=== PATIENT | female | born 1965 | race Two or more races ===

== ENCOUNTER → 2020-09-29 12:12 | Outpatient (BNVA) | payer OTHER, SELFPAY | PROVIDERS: PCP Internal Medicine; Referring Provider Internal Medicine; Visit Provider Nurse Practitioner Family | DX: Z76.89 Persons encountering health services in other specified circumstances (principal) ==

== ENCOUNTER 2020-10-28 08:13 | Outpatient (REF) | payer OTHER, SELFPAY ==
[2020-10-28 10:47] LABS: Hematocrit 42.8 % (37-47); Hemoglobin 13.7 g/dl (12.0-16.0); Mean Corpuscular Volume 87.3 fL (80-98); Mean Platelet Volume 10.7 fL (9.4-12.3); Platelet Count 286 X10*3/uL (160-400); Red Cell Distribution Width 12.9 % (11.0-16.0); White Blood Count 5.8 X10*3/uL (4.8-10.8)
== END 2020-10-28 08:14 | disposition home or self-care (01) ==
LOC: HO.LAB 08:13
PROVIDERS: PCP Internal Medicine; Visit Provider Nurse Practitioner Family
DX: K21.9 Gastro-esophageal reflux disease without esophagitis (principal)
CPT/HCPCS: 36415; 85027

== ENCOUNTER → 2020-11-25 13:53 | Outpatient (BNVA) | payer OTHER, SELFPAY | PROVIDERS: PCP Internal Medicine; Visit Provider Nurse Practitioner Family | DX: Z76.89 Persons encountering health services in other specified circumstances (principal) ==

== ENCOUNTER → 2020-12-02 12:24 | Outpatient (BNVA) | payer OTHER, SELFPAY | PROVIDERS: PCP Internal Medicine; Visit Provider Internal Medicine | DX: I25.10 Atherosclerotic heart disease of native coronary artery without angina pectoris (principal); E11.8 Type 2 diabetes mellitus with unspecified complications; I10 Essential (primary) hypertension; E78.5 Hyperlipidemia, unspecified | CPT/HCPCS: 93005 ==

== ENCOUNTER → 2021-01-04 08:02 | Outpatient (REF) | payer OTHER, SELFPAY ==
--- NOTE | ~2021-01-04 | NM_ITS ---
Lexiscan Myocardial perfusion study Indication: Chest pain, multiple risk factors, assess for coronary disease and ischemia Technique: The patient was brought in for a Lexiscan perfusion study on 01/04/2021 and was injected 0.4 mg of Lexiscan intravenously. Within a minute of this injection 30 mCi of sestamibi was given intravenously. Images were obtained using the SPECT gamma camera interlaced with the gating device. Images were obtained in supine position. Resting perfusion study was performed on 01/06/2021. Patient was administered 30 mCi of sestamibi intravenously at rest. Images were then obtained in supine position. Total DLP 113mGy-cm. Images were processed with the software and compared side to side in short axis, horizontal long axis and vertical long axis views. Findings: Raw acquisition was reviewed. The stress perfusion study showed diminished tracer uptake along the distal part of anterior/anterolateral wall. With CT attenuation correction the anterior perfusion defect is more prominent while the anterolateral defect is less obvious. Gated study shows normal LV systolic function with calculated LVEF of 62%. LV cavity is normal in size. The gated study shows normal wall thickening and contraction of segments. Resting study shows no significant perfusion abnormality. Gating at rest reveals normal wall motion with ejection fraction at 52%. The findings are consistent with reversible perfusion defect along the distal part of anterior/anterolateral wall.. NM/NM mesha perf SPECT rest & str Impression: 1. Myocardial perfusion imaging study shows [id number] ischemia along the distal anterior/anterolateral wall. 2. Gated LVEF is 62% during stress and 52% during rest. 3. Transient ischemic dilatation not present. EKG component of the test reported separately.
--- NOTE | 2021-01-04 08:07 | CA_ITS ---
Acquisition Time: 2021-01-04 09:52:24 Total Exercise Time: 00:02:00 Test Indications: ANGINA PECTORIS, ASHD Medications: Protocol: LEXISCAN Max HR: 144 BPM 87% of Pred: 165 BPM Max BP: 128/078 mmHG Max Work Load: 1.6 METS Pharmacological stress test using Lexiscan while walking on treadmill for 2 min. Pt tolerated well. Denies any anginal sx. EKG without any arrhythmias. Non diagnostic for ischemia. Nuclear images to follow. Normotensive response to tst. Test reviewed with DR. Graves Referred By: Mitchell Graves Overread By: Gloria Rushing
--- NOTE | 2021-01-04 08:07 | CA_ITS ---
Transthoracic Echocardiogram Patient (Last, First, Middle): Brynn Ardon E Gender: Female Date of : 1965 Age: 55 Procedure Date: 01/04/2021 Procedure Type: Transthoracic Echocardiogram Location: OP Height: 157.48 cm Weight: 104.33 kg BSA: 2.03 m2 Heart Rate: bpm BP: 136 / 80 mmHg Customer Service Correspondence Clerk: ELAINE Stacy MD: Mitchell Graves MD Automotive Metalsmith: Matthew Kumar MD Symptoms: I25.10 - Atherosclerotic heart disease of [place] coronary artery without angina pectoris Study Quality: Fair/Contrast ECG Rhythm: Sinus Conclusions: - 1. Normal LV systolic function with grade 1 diastolic dysfunction 2. Normal cardiac valvular Doppler 3. Normal RV systolic pressure 4. No gross pericardial effusion Findings Procedure Information The patient receives contrast. Left Ventricle Normal left ventricular size, thickness, and systolic function. The visually estimated ejection fraction is between 60-65%. Spectral Doppler is indicative of an impaired relaxation filling pattern. E/E prime ratio is <8, consistent with normal filling pressures. Evidence suggests grade I (mild) diastolic dysfunction. Right Ventricle Normal right ventricular cavity size and systolic function. Atria Both atria are normal in size. There is no evidence of interatrial shunt. Aortic Valve There is mild calcification of the aortic valve. There is no aortic valve stenosis. There is no aortic valve regurgitation. Mitral Valve Likely normal mitral valve structure and function. There is mild mitral annular calcification. There is trace mitral valve regurgitation. There is no mitral valve stenosis. Pulmonic Valve The pulmonic valve is likely normal. There is no pulmonic valve regurgitation. Tricuspid Valve The tricuspid valve was not well visualized. Great Vessels The aorta was not well visualized. The pulmonary artery was not well visualized. Venous The inferior vena cava is normal in size and collapses greater than 50% with inspiration. Pericardium/Pleural There is no evidence of pericardial effusion. Prior Study Comparison No significant change compared to prior study dated: 01/23/2019. Measurements 2D Linear Measurements IVSd: 1.07 0.6-0.9/0.6-1.0 cm LVIDd: 4.56 3.9-5.3/4.2-5.9 cm LVIDd Index: 2.25 2.4-3.2/2.2-3.1 cm/m2 LVIDs: 2.92 2.0-3.6 cm LVPWd: 1.04 0.7-1.1 cm Ao Root: 3.10 2.1-3.5 cm LA Diam: 3.40 2.7-3.8/3.0-4.0 cm LAIDs Index: 1.67 1.5-2.3 cm/m2 LV Mass: 210.00 67-162/88-224 g LV Mass Index: 103.45 43-95/49-115 g/m2 LVOT Diam: 2.00 3.0+(-)1.3 cm 2D Systolic Function EF 4C: 60.00 >55% EF 2C: 59.40 >55% EF BiP: 58.80 >55% Mitral Valve MV Pk E: 0.48 MV PK A: 0.86 MV Decel Time: 248.00 E/A: 0.60 E'Lateral: 6.74 E'Medial: 5.11 E/E' Med: 9.50 E/E' Lat: 7.20 PHT: 73.00 MVA PHT: 3.01 Decel Davison: 1.95 Aortic Valve AoV Pk Gustavo: 1.31 AoV Mn Gustavo: 0.91 AoV VTI: 0.25 AoV Pk Grad: 7.00 Aov Mn Grad: 4.00 FARZAD Cont.VTI: 1.98 LVOT LVOT Pk Gustavo: 0.72 LVOT Mn Gustavo: 0.48 LVOT VTI: 0.16 LVOT Pk Grad: 2.00 LVOT Mn Grad: 1.00 LVOT Diam: 2.00 LVOT Area: 3.14 Diastolic Function MV Pk E: 0.48 MV Pk A: 0.86 E/A: 0.60 E'Medial: 5.11 E/E' Med: 9.50 E' Laterial: 6.74 E/E' Lat: 7.20 Tricuspid Valve RA Press: 3.00 Great Vessels Aorta Ao Root-2D: 3.10 2.0-3.7 cm Ao Asc: 2.60 2.1-3.4 cm Ao Arch: 2.40 Updated in Other Vendor System with Status of Final Matthew Kumar MD electronically signed on 01/04/2021 4:22:52 PM with status of Final
== END ==
LOC: HO.CARD 08:02
PROVIDERS: PCP Internal Medicine; Visit Provider Internal Medicine
DX: I25.119 Atherosclerotic heart disease of native coronary artery with unspecified angina pectoris (principal)
CPT/HCPCS: 78452; 93017; 93306; A9500; J0280; J2785; Q9957

== ENCOUNTER → 2021-01-06 08:35 | Outpatient (BNVA) | payer OTHER, SELFPAY | PROVIDERS: PCP Internal Medicine; Visit Provider Internal Medicine ==

== ENCOUNTER 2021-01-07 09:36 | Outpatient (REF) | payer OTHER, SELFPAY ==
[2021-01-07 10:36] LABS: Hematocrit 39.7 % (37-47); Hemoglobin 13.1 g/dl (12.0-16.0); Mean Corpuscular Hemoglobin 28.8 pg (27.0-33.0); Mean Corpuscular Volume 87.3 fL (80-98); Mean Platelet Volume 10.1 fL (9.4-12.3); Platelet Count 299 X10*3/uL (160-400); Red Blood Count 4.55 X10*6/uL (4.20-5.50); Red Cell Distribution Width 12.7 % (11.0-16.0); White Blood Count 7.8 X10*3/uL (4.8-10.8)
[2021-01-07 10:42] LABS: INTERNATIONAL NORM RATIO 1.1 (0.9-1.1); Prothrombin Time 12.7 SEC (10.8-13.0)
[2021-01-07 11:07] LABS: Anion Gap 13 (12-20); Blood Urea Nitrogen 17 mg/dL (9-16); Calcium 9.4 mg/dL (8.4-10.2); Carbon Dioxide 30 mmol/L (22-29); Chloride 106 mmol/L (96-108); Estimated Glomerular Filt Rate > 60; Glucose Random 138 mg/dL (60-115); Potassium 4.5 mmol/L (3.3-5.1); Sodium 144 mmol/L (135-145)
== END 2021-01-07 09:37 | disposition home or self-care (01) ==
LOC: HO.LAB 09:36
PROVIDERS: PCP Internal Medicine; Visit Provider Internal Medicine
DX: I25.10 Atherosclerotic heart disease of native coronary artery without angina pectoris (principal); Z79.01 Long term (current) use of anticoagulants
CPT/HCPCS: 36415; 80048; 85027; 85610

== ENCOUNTER → 2021-01-20 08:02 | Outpatient (BNVA) | payer OTHER, SELFPAY | PROVIDERS: PCP Internal Medicine; Visit Provider Internal Medicine ==

== ENCOUNTER → 2021-02-18 14:24 | Outpatient (BNVA) | payer OTHER, SELFPAY | PROVIDERS: PCP Internal Medicine; Visit Provider Internal Medicine ==

== ENCOUNTER 2021-03-04 09:50 | Outpatient (REF) | payer OTHER, SELFPAY ==
--- NOTE | ~2021-03-04 | XR_ITS ---
EXAMINATION: XR chest 2V CLINICAL INFORMATION: Reason for Exam E66.9 - Obesity, unspecified COMPARISON: 07/04/2019 TECHNIQUE: XR chest 2V Lungs and Cornleia: Both lungs are clear. Pleura: Normal. Costophrenic angles are sharp. No pneumothorax. Heart: The heart is normal in size. Mediastinum: The mediastinum is within normal limits.. Bones: Skeletal structures included are normal for patient's age. XR/XR chest 2V IMPRESSION: No radiographic evidence of acute cardiopulmonary disease.
== END 2021-03-04 09:51 | disposition home or self-care (01) ==
LOC: HO.XRAY 09:50
PROVIDERS: PCP Internal Medicine; Visit Provider Internal Medicine
DX: E66.9 Obesity, unspecified (principal); R06.00 Dyspnea, unspecified
CPT/HCPCS: 71046

== ENCOUNTER → 2021-07-08 07:48 | Outpatient (BNVA) | payer OTHER, SELFPAY | PROVIDERS: PCP Internal Medicine; Visit Provider Nurse Practitioner Gerontology | DX: E11.42 Type 2 diabetes mellitus with diabetic polyneuropathy (principal); E78.5 Hyperlipidemia, unspecified; E66.01 Morbid (severe) obesity due to excess calories; I10 Essential (primary) hypertension; Z68.41 Body mass index [BMI] 40.0-44.9, adult | CPT/HCPCS: 82947 ==

== ENCOUNTER → 2021-07-27 08:11 | Outpatient (BNVA) | payer OTHER, SELFPAY | PROVIDERS: PCP Internal Medicine; Visit Provider Internal Medicine ==

== ENCOUNTER → 2021-11-16 08:28 | Outpatient (BNVA) | payer OTHER, SELFPAY | PROVIDERS: PCP Internal Medicine; Visit Provider Nurse Practitioner Gerontology ==

== ENCOUNTER 2022-03-04 09:38 | Outpatient (REF) | payer OTHER, SELFPAY ==
--- NOTE | ~2022-03-04 | XR_ITS ---
EXAMINATION: XR LUMBOSACRAL SPINE CLINICAL INFORMATION: Low back pain. COMPARISON: None TECHNIQUE: Three views of the lumbosacral spine. FINDINGS: There is normal lumbar lordosis. The vertebral heights and alignment are normal. There is loss of the L1-L2 and L2-L3 disc heights with moderate ventral spondylosis. There is no visible acute fracture, dislocation or lytic process seen. The paravertebral soft tissues are normal. XR/XR lumbar spine 2-3V IMPRESSION: Mild degenerative disc changes of the L1-L2 and L2-L3 disc levels with moderate ventral spondylosis. No visible acute fracture or lytic process seen.
== END 2022-03-04 09:39 | disposition home or self-care (01) ==
LOC: HO.XRAY 09:38
PROVIDERS: PCP Internal Medicine; Visit Provider Internal Medicine
DX: M54.50 Low back pain, unspecified (principal)
CPT/HCPCS: 72100

== ENCOUNTER 2022-04-04 12:26 | Outpatient (REF) | payer OTHER, SELFPAY ==
--- NOTE | ~2022-04-04 | XR_ITS ---
EXAMINATION: XR RIBS, LEFT CLINICAL INFORMATION: Left lower chest wall pain COMPARISON: Previous chest x-ray February 2021 TECHNIQUE: 3 views of the left ribs and one view of the chest were obtained. FINDINGS: Lungs are clear. No consolidation, pneumothorax, or pleural effusion. The cardiomediastinal silhouette and pulmonary vasculature are normal. There are degenerative changes of the spine.. Ribs are intact. No fractures are identified. XR/XR ribs LT min 3V w CXR1V IMPRESSION: No evidence for acute disease in the chest. No rib fracture. Degenerative changes of the spine.
== END 2022-04-04 12:27 | disposition home or self-care (01) ==
LOC: HO.XRAY 12:26
PROVIDERS: PCP Internal Medicine; Visit Provider Internal Medicine
DX: R07.89 Other chest pain (principal)
CPT/HCPCS: 71101

== ENCOUNTER → 2022-07-28 08:07 | Outpatient (BNVA) | payer OTHER, SELFPAY | PROVIDERS: PCP Internal Medicine; Referring Provider Internal Medicine; Visit Provider Internal Medicine | DX: I25.10 Atherosclerotic heart disease of native coronary artery without angina pectoris (principal); I10 Essential (primary) hypertension; E78.5 Hyperlipidemia, unspecified; E11.8 Type 2 diabetes mellitus with unspecified complications; E66.01 Morbid (severe) obesity due to excess calories; Z68.41 Body mass index [BMI] 40.0-44.9, adult | CPT/HCPCS: 93005 ==

== ENCOUNTER 2022-10-11 10:24 | Outpatient (REF) | payer OTHER, SELFPAY ==
--- NOTE | ~2022-10-11 | XR_ITS ---
EXAMINATION: XR HAND, RIGHT CLINICAL INFORMATION: Pain COMPARISON: None TECHNIQUE: PA, lateral, and oblique views of the right hand. FINDINGS: The bones are osteopenic. Bone alignment is normal. No fracture or dislocation. 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 Joint spaces are otherwise normal. Soft tissues are normal. XR/XR hand RT min 3V IMPRESSION: Osteopenia and mild arthritis at the first CORRECTION joint.
== END 2022-10-11 10:25 | disposition home or self-care (01) ==
LOC: HO.HOSX 10:24
PROVIDERS: Visit Provider Orthopaedic Surgery
DX: Z13.89 Encounter for screening for other disorder (principal)

== ENCOUNTER → 2022-10-13 10:03 | Outpatient (BNVA) | payer OTHER, SELFPAY | PROVIDERS: PCP Internal Medicine; Visit Provider Orthopaedic Surgery | DX: M65.4 Radial styloid tenosynovitis [de Quervain] (principal); M79.641 Pain in right hand; R20.0 Anesthesia of skin; R20.2 Paresthesia of skin | CPT/HCPCS: 20550; 73130; J1100 ==

== ENCOUNTER 2022-12-08 14:08 | Outpatient (REF) | payer OTHER, SELFPAY ==
--- NOTE | 2022-12-08 08:00 | EMG_ITS ---
Bilateral median and ulnar motor and sensory studies were performed. Bilateral radial sensory studies were performed and paraspinal muscles were tested with a needle. 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 MD HENRRY Morrow/SANDI / [id number]
== END 2022-12-08 14:09 | disposition home or self-care (01) ==
LOC: HO.NEURO 14:08
PROVIDERS: PCP Internal Medicine; Visit Provider Orthopaedic Surgery
DX: R20.0 Anesthesia of skin (principal)
CPT/HCPCS: 95886; 95911

== ENCOUNTER → 2022-12-26 08:47 | Outpatient (BNVA) | payer OTHER, SELFPAY | PROVIDERS: Visit Provider Orthopaedic Surgery | DX: Z13.89 Encounter for screening for other disorder (principal) ==

== ENCOUNTER 2023-01-06 08:29 | Day surgery (SDC) | payer OTHER, SELFPAY ==
[2023-01-06 07:09] VITALS: BMI 41.3
[2023-01-06 09:45] VITALS: BP 150/73; PULSE 69; RESP 20; TEMP 36.8; O2SAT 98
--- NOTE | 2023-01-06 10:12 | P.OP_ITS ---
Operative Note Operative Note Date of Service: 01/06/23 Narrative: Operative Note Preop diagnosis: 1. Right DeQuervain's tenosynovitis 2. right carpal tunnel syndrome Postop diagnosis: same Procedure: 1. right 1st dorsal compartment release 2. Right 1st dorsal compartment tenosynovectomy 3. Right carpal tunnel release Surgeon: Lee Ann Gilliam MD Anesthesia: local block using 1% lidocaine with epinephrine Findings: Thickened 1st dorsal compartment. Hypertrophic tenosynovium about the APL tendon in the 1st dorsal compartment. thickened transverse carpal ligament EBL: Less than 5 mL Tourniquet time: None Specimens: None Complications: None Disposition: Brought to recovery room in stable condition Plan: Follow-up for 7-10 days for wound check and suture removal Indications: The patient is 57 years old, with right DeQuervain's te nosynovitis and right carpal tunnel syndrome that have been unresponsive to nonoperative management. The risks and benefits of operative treatment including but not limited to risk of damage to blood vessels, nerves, tendons, infection, persistent pain, persistent symptoms, recurrence or possible need for additional surgery were discussed with the patient and the patient wishes to proceed with surgery. Procedure: Once consent was obtained a local block was performed in the preop area using a combination of 1% lidocaine with epinephrine. The patient was then brought back to the operating suite and placed on the operative table in supine position. A tourniquet was applied to the proximal aspect of the right upper extremity and the limb was prepped and draped in a standard surgical fashion. Once assured that we had a good block, a 2.0 cm longitudinal incision was made centered over the right carpal tunnel. The incision was made through the skin to the subcutaneous tissues using a #15 blade. Dissection was made down to the level of the transverse carpal ligament with care being taken to protect the palmar cutaneous nerve. Once the transverse carpal ligament was clearly visualized, a longitudinal incision was made in the transverse carpal ligament 1st using a #15 blade, then using tenotomy scissors under direct visualization. Care was taken to look for and protect the motor branch of the median nerve when seen in this area. Once satisfied with our carpal tunnel release the wound was irrigated with normal saline. Once assured that we had a good block, a 1.5 cm longitudinal incision was made centered over the 1st dorsal compartment as it passed over the radial styloid of the right wrist. The incision was made through the skin to the subcutaneous tissues using a #15 blade. Careful dissection was made down to the level of the 1st dorsal compartment using tenotomy scissors, with care being taken to protect the nearby branches of the superficial radial nerve. Once the 1st dorsal compartment was exposed, A longitudinal incision was made in the 1st dorsal compartment 1st using a #15 blade, then using tenotomy scissors under direct visualization. The 1st dorsal compartment was noted to be thickened. she was noted to have some hypertrophic tenosynovium in the 1st dorsal compartment about the abductor pollicis longus tendon. I performed a tenosynovectomy excising this hypertrophic tenosynovium using tenotomy scissors. The tendons otherwise appear to be in good condition and Both the APL and EPB tendons were in the same compartment. Following our release and tenosynovectomy, we saw smooth gliding abductor pollicis longus and extensor pollicis brevis tendons. Once satisfied with our 1st dorsal compartment release the wound was copiously irrigated with normal saline and hemostasis was obtained with a brief period of local pressure. The subcutaneous layer was closed with some 4-0 Vicryl suture, and the skin edges were reapproximated with some 5.0 nylon suture material. A sterile dressing was applied. The patient appears to have tolerated the procedure well and with no complications. All digits were well vascularized at the conclusion of the case.
--- NOTE | 2023-01-06 10:12 | MHC.SHP ---
Pre-Procedural Eval Section A Date of Service: 01/06/23 The patient is an INPATIENT: No Changes since office visit: No Cold of Flu in the past 2 weeks, No New Medical Problems, No Changes in Medication and No Patient answered all questions The History & Physical has been completed within 30 days and I have reviewed it.: Yes Section B Chief Complaint: Carpal tunnel syndrome, Radial styloid tenosynovit Allergies: Allergies Allergy/AdvReac Type Severity Reaction Status Date / Time erythromycin base Allergy Severe ANAPHYLAXIS Verified 12/26/22 09:01 [Erythromycin Base] oxycodone [From Percocet] Allergy Mild Nausea Verified 12/26/22 09:01 fluconazole [Diflucan] Allergy Unknown Abdominal Verified 12/26/22 09:01 Pain silver AdvReac Unknown rash/blisters Verified 12/26/22 09:01 [From Tegaderm AG Mesh] to skin Plan I have reviewed the history and physical and performed a pertinent physical examination on my patient. No changes have occurred unless specified. Time Spent With Patient Time: Total time managing care of this patient today ____ minutes.
[2023-01-06 11:29] VITALS: BP 145/73; PULSE 71; RESP 16; TEMP 36.2; O2SAT 97
== END 2023-01-06 11:38 | disposition home or self-care (01) ==
PROVIDERS: PCP Internal Medicine; Visit Provider Orthopaedic Surgery
PROC: (CPT 64721; principal; 2023-01-06 10:50)
PROC: (CPT 25000; 2023-01-06 10:50)
DX: G56.01 Carpal tunnel syndrome, right upper limb (principal); M65.4 Radial styloid tenosynovitis [de Quervain]; R20.0 Anesthesia of skin; R20.2 Paresthesia of skin; I25.10 Atherosclerotic heart disease of native coronary artery without angina pectoris; I10 Essential (primary) hypertension; E11.42 Type 2 diabetes mellitus with diabetic polyneuropathy; E66.09 Other obesity due to excess calories; Z68.41 Body mass index [BMI] 40.0-44.9, adult; Z88.8 Allergy status to other drugs, medicaments and biological substances; Z88.1 Allergy status to other antibiotic agents
CPT/HCPCS: 64721; 25000; J0171

== ENCOUNTER → 2023-01-18 10:22 | Outpatient (BNVA) | payer OTHER, SELFPAY | PROVIDERS: PCP Internal Medicine; Visit Provider Orthopaedic Surgery | DX: Z13.89 Encounter for screening for other disorder (principal) ==

== ENCOUNTER → 2023-02-15 12:07 | Outpatient (BNVA) | payer OTHER, SELFPAY | PROVIDERS: PCP Internal Medicine; Visit Provider Orthopaedic Surgery | DX: Z13.89 Encounter for screening for other disorder (principal) ==

== ENCOUNTER 2023-03-20 10:14 | Day surgery (SDC) | payer OTHER, SELFPAY ==
--- NOTE | 2023-03-20 09:17 | W.PM.OPN ---
Operative Note Operative Note Date of Service: 03/20/23 Narrative: Preop diagnosis: 1. Left Carpal tunnel syndrome Postop diagnosis: same Procedure: 1. Left Carpal tunnel release Surgeon: Lee Ann Gilliam MD Anesthesia: local block using 1% lidocaine with epinephrine Findings: Thickened transverse carpal ligament. EBL: Less than 5 mL Specimens: None Complications: None Disposition: Brought to recovery room in stable condition Plan: Follow-up for 10-14 days for wound check and suture removal Indications: The patient is 57 years old, with left carpal tunnel syndrome that has been unresponsive to nonoperative management. The risks and benefits of operative treatment including but not limited to risk of damage to blood vessels, nerves, tendons, infection, persistent pain, persistent symptoms, or possible need for additional surgery were discussed with the patient and the patient wishes to proceed with surgery. Procedure: Once consent was obtained a local block was performed using a combination of 1% lidocaine with epinephrine. The patient was then brought back to the operating suite and placed on the operative table in supine position. The left upper extremity was prepped and draped in a standard surgical fashion. Once assured that we had a good block, a 2.0 cm longitudinal incision was made centered over the carpal tunnel. The incision was made through the skin to the subcutaneous tissues using a #15 blade. Dissection was made down to the level of the transverse carpal ligament with care being taken to protect the palmar cutaneous nerve. Once the transverse carpal ligament was clearly visualized, a longitudinal incision was made in the transverse carpal ligament 1st using a #15 blade, then using tenotomy scissors under direct visualization. Care was taken to look for and protect the motor branch of the median nerve when seen in this area. Once satisfied with our carpal tunnel release the wound was copiously irrigated with normal saline and hemostasis was obtained with a brief period of local pressure. The skin edges were reapproximated with some 5.0 nylon suture material and a sterile dressing was applied. The patient appears to have tolerated the procedure well and with no complications. All digits were well vascularized at the conclusion of the case.
[2023-03-20 10:36] VITALS: BP 128/65; PULSE 90; RESP 16; TEMP 36.2; O2SAT 96
[2023-03-20 10:38] VITALS: BMI 40.4
[2023-03-20 12:07] VITALS: BP 137/73; PULSE 75; RESP 17; O2SAT 98
--- NOTE | 2023-03-20 13:44 | MHC.SHP ---
Pre-Procedural Eval Section A Date of Service: 03/20/23 The patient is an INPATIENT: No Changes since office visit: No Cold of Flu in the past 2 weeks, No New Medical Problems, No Changes in Medication and No Patient answered all questions The History & Physical has been completed within 30 days and I have reviewed it.: Yes Section B Chief Complaint: Carpal tunnel syndrome, left upper limb Allergies: Allergies Allergy/AdvReac Type Severity Reaction Status Date / Time erythromycin base Allergy Severe ANAPHYLAXIS Verified 02/15/23 12:36 [Erythromycin Base] oxycodone [From Percocet] Allergy Mild Nausea Verified 02/15/23 12:36 fluconazole [Diflucan] Allergy Unknown Abdominal Verified 02/15/23 12:36 Pain silver AdvReac Unknown rash/blisters Verified 02/15/23 12:36 [From Tegaderm AG Mesh] to skin Plan I have reviewed the history and physical and performed a pertinent physical examination on my patient. No changes have occurred unless specified. Time Spent With Patient Time: Total time managing care of this patient today ____ minutes.
== END 2023-03-20 12:24 | disposition home or self-care (01) ==
PROVIDERS: PCP Internal Medicine; Visit Provider Orthopaedic Surgery
PROC: (CPT 64721; principal; 2023-03-20 12:20)
DX: G56.02 Carpal tunnel syndrome, left upper limb (principal); I25.10 Atherosclerotic heart disease of native coronary artery without angina pectoris; E11.42 Type 2 diabetes mellitus with diabetic polyneuropathy; I10 Essential (primary) hypertension; E78.00 Pure hypercholesterolemia, unspecified; Z86.73 Personal history of transient ischemic attack (TIA), and cerebral infarction without residual deficits; Z88.1 Allergy status to other antibiotic agents; Z88.8 Allergy status to other drugs, medicaments and biological substances; F12.90 Cannabis use, unspecified, uncomplicated
CPT/HCPCS: 64721; J0171

== ENCOUNTER 2023-03-28 10:07 | Outpatient (REF) | payer OTHER, SELFPAY ==
--- NOTE | ~2023-03-28 | XR_ITS ---
EXAMINATION: XR LUMBOSACRAL SPINE CLINICAL INFORMATION: Chronic low back pain COMPARISON: None available. TECHNIQUE: Three views of the lumbosacral spine. FINDINGS: There is normal lumbar lordosis. The vertebral heights, alignment and disc heights are normal. No visible acute fracture, dislocation or subluxation seen. No bony erosive changes there is mild spondylosis lumbar spine. The paravertebral soft tissues are normal. XR/XR lumbar spine 2-3V IMPRESSION: Mild spondylosis. No visible acute fracture, dislocation or subluxation seen.
== END 2023-03-28 10:08 | disposition home or self-care (01) ==
LOC: HO.XRAY 10:07
PROVIDERS: PCP Internal Medicine; Visit Provider Internal Medicine
DX: M54.42 Lumbago with sciatica, left side (principal); M54.41 Lumbago with sciatica, right side
CPT/HCPCS: 72100

== ENCOUNTER → 2023-04-04 09:13 | Outpatient (BNVA) | payer OTHER, SELFPAY | PROVIDERS: PCP Internal Medicine; Visit Provider Orthopaedic Surgery ==

== ENCOUNTER 2023-08-01 08:42 | Outpatient (AMB) | payer OTHER, SELFPAY ==
[2023-08-01 08:50] VITALS: BP 132/90; PULSE 66; BMI 40.0
--- NOTE | 2023-08-01 08:50 | MHC.OFFVIS ---
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 Allergies erythromycin base [Erythromycin Base] Allergy (Severe, Verified 08/01/23 08:54) ANAPHYLAXIS oxycodone [From Percocet] Allergy (Mild, Verified 08/01/23 08:54) Nausea fluconazole [Diflucan] Allergy (Unknown, Verified 08/01/23 08:54) Abdominal Pain silver [From Tegaderm AG Mesh] Adverse Reaction (Unknown, Verified 08/01/23 08:54) rash/blisters to skin Medication List - Last Reconciled 08/01/23 by GERSON Brennan aspirin 81 mg PO DAILY blood sugar diagnostic (FreeStyle Lite Strips) As directed once a day duloxetine (Cymbalta) 20 mg PO BID famotidine (Pepcid) 20 mg PO BEDTIME gabapentin 600 mg PO BEDTIME insulin glargine (Lantus Solostar U-100 Insulin) 40 units (0.4 mL) subcut QPM lancets (TRUEplus Lancets) As directed liraglutide (Victoza 3-Jose) 1.8 mg (0.3 mL) subcut DAILY lisinopril 5 mg PO DAILY loratadine (Allergy Relief (loratadine)) 10 mg PO DAILY metoprolol succinate ER 25 mg PO DAILY omeprazole 20 mg PO DAILY rosuvastatin 40 mg PO DAILY simethicone (Gas Relief (simethicone)) 125 mg PO QID PRN sucralfate 1 g PO DAILY tramadol 50 mg PO BID PRN tramadol 50 mg PO DAILY HPI 1 year follow up HPI Details Brynn is a 57-year-old female with past medical history of hypertension, hyperlipidemia, diabetes, morbid obesity, nonobstructive coronary artery disease who presents for follow-up. Today she reports she has been doing well over the last year. Her last prior visit was 07/28/2022. She does report aching in her left chest and shoulder region at times when she has at rest in the evenings. She denies any anterior chest discomfort brought on by physical activity. She has had issues with her shoulders in the past. No shortness of breath, palpitations, dizziness, presyncope, syncope, PND, orthopnea or edema. Taking meds as directed. [facility] Medical History Obesity due to excess calories Hyperlipidemia LDL goal <70 Type 2 diabetes mellitus with diabetic polyneuropathy Obesity Dyspnea on exertion Other and unspecified hyperlipidemia Essential hypertension Type 2 diabetes mellitus with unspecified complications Atherosclerotic cardiovascular disease Hypercholesteremia Diabetes mellitus TIA (transient ischemic attack) Gastroesophageal reflux disease Surgical History H/O cardiac catheterization Hx of tubal ligation Hx of cholecystectomy Family History Father Hx of diabetes insipidus Hx of cardiac asthma Mother Hx of cervical cancer Hx of heat stroke Social History Alcohol intake: never Patient Tobacco Use Status: Never used Tobacco Substance Use Type: Marijuana Current occupational status: employed 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 Review of Systems Const All systems reviewed & are unremarkable except as noted in HPI and below ENT Denies dizziness Card Details: left shoulder area ache in evenings at times Denies chest pain, Denies chest pain at rest, Denies chest pain with activity, Denies rapid heart rate, Denies pedal edema, Denies edema, Denies leg edema, Denies lightheadedness, Denies palpitations, Denies dyspnea, Denies dyspnea on exertion and Denies orthopnea Resp Denies cough, Denies dyspnea and Denies dyspnea on exertion GI Denies hematochezia and Denies change in stool character Musc Denies abnormal gait, Denies limited range of motion, Denies muscle cramps, Denies muscle weakness, Denies numbness, Denies radiating pain into limb, Denies stiffness and Denies tingling Neuro Denies abnormal gait, Denies dizziness, Denies numbness and Denies tingling Endo Denies palpitations Physical Exam Vital Signs: Last Vital Signs Pulse 66 08/01/23 08:50 BP 132/90 H 08/01/23 08:50 BMI result Body Mass Index 40.0 Const General: cooperative, healthy appearing, comfortable and no acute distress Orientation/consciousness: patient oriented x3 Neck Neck: Yes normal visual inspection and Yes no JVD Resp Effort & Inspection: normal respiratory effort Auscultation: clear to auscultation bilaterally, no crackles, no rales, no rhonchi and no wheezes Cardio Jugular venous distension: no JVD Rate: regular rate Rhythm: regular rhythm Heart sounds: S1 normal heart sound present, S2 normal heart sound present, no gallops, no murmurs and no rubs Skin General skin exam: no rashes or lesions noted Neuro General: patient oriented x3 Extrem General: Yes normal to inspection, No no pedal edema and No calf tenderness Psych Appearance: grossly normal Mental Status: mental status grossly normal Speech and movement: Normal speech and movement present Office Procedures EKG Details: Today, read by me Sinus rhythm, low-voltage QRS, can not rule out anterior infarct, old, rate 66, QTC 406 millisecond [id number], Complete Assessment & Plan Assessment & Plan (1) Atherosclerotic cardiovascular disease: Code(s): I25.10 - Atherosclerotic heart disease of [place] coronary artery without angina pectoris Plan: History of CAD, nonobstructive. Nuclear stress test done 01/04/2021 showed [id number] ischemia in the distal anterior and anterior lateral wall. An echocardiogram done that day showed EF 60-65%, grade 1 diastolic dysfunction. She underwent cardiac catheterization on 01/15/2021 showing mid LAD 30% stenosis, RCA mild disease. EKG done today shows sinus rhythm, can not rule out prior anterior infarct which is unchanged from prior EKG, rate 66. She has been on medication for stable CAD including aspirin 81 mg daily indefinitely. On rosuvastatin 40 mg daily. On metoprolol XL and lisinopril. No recent lab work in our system. She tells me she has had labs done by her PCP. Will work on obtaining those results for our system. Blood pressure diastolic initially elevated, recheck 128/82. Will continue current meds without change. Signs and symptoms of angina reviewed with her. Cardiology follow-up in 1 year, sooner if needed (2) Essential hypertension: Code(s): I10 - Essential (primary) hypertension Plan: Well controlled (3) Other and unspecified hyperlipidemia: Code(s): E78.5 - Hyperlipidemia, unspecified Plan: [place] LDL goal less than 70 in patient with CAD. Will have her continue on rosuvastatin 40 mg daily. In the past she says that the shot was ordered for her, which I assume was PCSK9 inhibitor, and she says it was not approved by her insurance. Will work on obtaining most recent lipid profile from PCP Coding Level of Care Code Est Pt Level 4 (51963) Diagnoses Atherosclerotic cardiovascular disease I25.10 Essential hypertension I10 Other and unspecified hyperlipidemia E78.5 CPT Codes EKG - CPT: [id number], Complete ([id number]) Time Spent (min) 26
== END 2023-08-01 09:23 | disposition home or self-care (01) ==
PROVIDERS: PCP Internal Medicine; Visit Provider Nurse Practitioner Family
DX: I25.10 Atherosclerotic heart disease of native coronary artery without angina pectoris (principal); I10 Essential (primary) hypertension; E78.5 Hyperlipidemia, unspecified
CPT/HCPCS: 93010; 99214

== ENCOUNTER → 2023-08-01 08:42 | Outpatient (BNVA) | payer OTHER, SELFPAY | PROVIDERS: PCP Internal Medicine; Visit Provider Nurse Practitioner Family | DX: I25.10 Atherosclerotic heart disease of native coronary artery without angina pectoris (principal); I10 Essential (primary) hypertension; E78.5 Hyperlipidemia, unspecified | CPT/HCPCS: 93005 ==

== ENCOUNTER 2023-09-06 08:03 | Outpatient (REF) | payer OTHER, SELFPAY | END 2023-09-06 08:04 | disposition home or self-care (01) | LOC: HO.MAMMO 08:03 | PROVIDERS: PCP Internal Medicine; Visit Provider Internal Medicine | DX: Z12.31 Encounter for screening mammogram for malignant neoplasm of breast (principal) | CPT/HCPCS: 77063; 77067 ==

== ENCOUNTER → 2023-09-06 08:15 | Outpatient (BNV) | payer OTHER, SELFPAY | PROVIDERS: PCP Internal Medicine; Visit Provider Radiology Diagnostic Radiology | DX: Z12.31 Encounter for screening mammogram for malignant neoplasm of breast (principal) | CPT/HCPCS: 77063; 77067 ==

== ENCOUNTER 2023-12-22 13:36 | Emergency (ER) | payer OTHER, SELFPAY ==
--- NOTE | ~2023-12-22 | XR_ITS ---
EXAMINATION: XR CHEST CLINICAL INFORMATION: Chest pain. COMPARISON: None available. TECHNIQUE: PA view of the chest was obtained. FINDINGS: No significant abnormality is noted involving the heart, lungs, mediastinum, or soft tissues. Mild degenerative changes of the spine. Status post cholecystectomy. XR/XR chest 1V IMPRESSION: Unremarkable examination.
--- NOTE | 2023-12-22 13:48 | ECG_ITS ---
Test Reason : CHEST PAIN Blood Pressure : / mmHG Vent. Rate : 065 BPM Atrial Rate : 065 BPM P-R Int : 160 ms QRS Dur : 084 ms QT Int : 408 ms P-R-T Axes : 014 -20 007 degrees QTc Int : 424 ms Normal sinus rhythm Possible Anterior infarct , age undetermined Abnormal ECG When compared with ECG of 23-NOV-2018 12:29, No significant change was found Referred By: Generic ED Physician Electronically Signed By:KOLBY COVINGTON
[2023-12-22 14:22] VITALS: BP 158/69; PULSE 68; RESP 18; TEMP 36.1; O2SAT 98; BMI 40.2
[2023-12-22 15:08] LABS: MANUAL DIFF FLAG NO
[2023-12-22 15:11] LABS: Basophils Absolute Auto 0.1 X10*3/uL (0.0-0.2); Basophils Percent Auto 0.6 % (0-2); Eosinophils Absolute Auto 0.1 X10*3/uL (0.0-0.4); Eosinophils Percent Auto 1.1 % (0-4); Hematocrit 41.7 % (37.0-47.0); Hemoglobin 13.7 g/dl (12.0-16.0); Imm Gran Abs Auto 0.03 X10*3/uL (0.00-0.03); Imm Gran Pct Auto 0.3 % (0.0-0.4); Lymphocytes Absolute Auto 1.8 X10*3/uL (1.2-4.9); Lymphocytes Percent Auto 20.4 % (20-40); Mean Corpuscular HGB Conc 32.9 g/dl (31.0-35.0); Mean Corpuscular Hemoglobin 27.8 pg (27.0-33.0); Mean Corpuscular Volume 84.8 fL (80.0-98.0); Mean Platelet Volume 9.6 fL (9.4-12.3); Monocytes Absolute Auto 0.5 X10*3/uL (0.1-1.2); Monocytes Percent Auto 5.1 % (2-11); Neutrophils Absolute Auto 6.4 x10*3/uL (2.0-8.3); Neutrophils Percent Auto 72.5 % (45-73); Platelet Count 293 X10*3/uL (160-400); Red Blood Count 4.92 X10*6/uL (4.20-5.50); Red Cell Distribution Width 12.6 % (11.0-16.0); White Blood Count 8.9 X10*3/uL (4.8-10.8)
--- NOTE | 2023-12-22 15:12 | ED.CHESTPAIN ---
HPI - Chest Pain General Chief Complaint: Chest Pain Stated Complaint: tight chest, sweats, exhaustion, back pain Time Seen by Provider: 12/22/23 21:56 Source: patient Mode of arrival: ambulatory Limitations: no limitations History of Present Illness HPI narrative: Patient with history of microvascular angina status post cardiac catheterization 2 times last one was about 2 years ago comes here for 2 weeks of left-sided chest pain off and on lasting only for few minutes also patient does have a history of acid reflux taking Prilosec noticed more pain in the mid sternal area today while at work with slight nausea no vomiting no shortness of breath patient had a similar pain for long time never seen a asparagus cutter patient is status post cholecystectomy Related Data Home Medications Medication Instructions Recorded Confirmed lisinopril 5 mg tablet 5 mg PO DAILY 09/29/20 08/01/23 loratadine 10 mg tablet (Allergy 10 mg PO DAILY 09/29/20 08/01/23 Relief (loratadine)) tramadol 50 mg tablet 50 mg PO BID PRN 09/29/20 08/01/23 aspirin 81 mg tablet,delayed 81 mg PO DAILY 12/02/20 08/01/23 release metoprolol succinate 25 mg 25 mg PO DAILY 12/02/20 08/01/23 tablet,extended release 24 hr gabapentin 600 mg tablet 600 mg PO BEDTIME 02/18/21 08/01/23 blood sugar diagnostic (FreeStyle #10 ea 11/16/21 08/01/23 Lite Strips) lancets 33 gauge (TRUEplus Lancets) #100 ea 11/16/21 08/01/23 duloxetine 20 mg capsule,delayed 20 mg PO BID 10/13/22 08/01/23 release (Cymbalta) tramadol 50 mg tablet 50 mg PO DAILY 10/13/22 08/01/23 Previous Rx's Medication Instructions Recorded simethicone 125 mg chewable tablet 125 mg PO QID PRN abdominal 09/29/20 (Gas Relief (simethicone)) distention #120 tabs sucralfate 1 gram tablet 1 g PO DAILY #30 tabs 11/25/20 omeprazole 20 mg capsule,delayed 20 mg PO DAILY #30 caps 08/17/21 release famotidine 20 mg tablet (Pepcid) 20 mg PO BEDTIME #30 tabs 10/20/21 rosuvastatin 40 mg tablet 40 mg PO DAILY #30 tabs 11/16/21 insulin glargine 100 unit/mL (3 40 unit (0.4 mL) subcut QPM #15 mL 09/20/22 mL) subcutaneous pen (Lantus Solostar U-100 Insulin) liraglutide 0.6 mg/0.1 mL (18 mg/3 1.8 mg (0.3 mL) subcut DAILY #27 mL 09/20/22 mL) subcutaneous pen injector (Victoza 3-Jose) Allergies Allergy/AdvReac Type Severity Reaction Status Date / Time erythromycin base Allergy Severe ANAPHYLAXIS Verified 12/22/23 14:26 [Erythromycin Base] oxycodone [From Percocet] Allergy Mild Nausea Verified 12/22/23 14:26 fluconazole [Diflucan] Allergy Unknown Abdominal Verified 12/22/23 14:26 Pain silver AdvReac Unknown rash/blisters Verified 12/22/23 14:26 [From Tegaderm AG Mesh] to skin Review of Systems Review of Systems: Yes all other systems are reviewed and are negative PMFSH Past Medical History Medical History Obesity due to excess calories Hyperlipidemia LDL goal <70 Type 2 diabetes mellitus with diabetic polyneuropathy Obesity Dyspnea on exertion Other and unspecified hyperlipidemia Essential hypertension Type 2 diabetes mellitus with unspecified complications Atherosclerotic cardiovascular disease Hypercholesteremia Diabetes mellitus TIA (transient ischemic attack) Gastroesophageal reflux disease Surgical History H/O cardiac catheterization Hx of tubal ligation Hx of cholecystectomy Family History Family History Father Hx of diabetes insipidus Hx of cardiac asthma Mother Hx of cervical cancer Hx of heat stroke Social History Social History Alcohol intake: never Patient Tobacco Use Status: Never used Tobacco Smoked in Last 30 Days: No Use of substances other than those prescribed or required for medical reasons: No Substance Use Type: Marijuana Advance Directives: No Advance Directives Information Provided: No Patient : No Current occupational status: employed 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 Oriented X3. No acute distress. Eyes: No pallor or icterus ENT: Pharynx normal. Oral Mucosa moist Neck: Normal inspection. Neck supple. CVS: Normal heart rate and rhythm. Pulses normal. Respiratory: No respiratory distress. Equal air entry bilateral, no wheezing/rales/rhonchi Abdomen: Soft tenderness in epigastric area, Bowel sounds are present, no mass palpable, no CVA tenderness Skin: Skin warm and dry. Normal skin color. Normal skin turgor. Extremities: No lower extremity edema. No calf tenderness Neuro: Oriented X 3. Course Course Course Narrative: This is an RME: Additional HPI, ROS, PE not included below will be deferred to primary provider. Patient is a 58-year-old female who presents emergency department for evaluation of 2 weeks with chest pressure, night sweats, fatigue intermittent nausea/vomiting. denies SOB, known sick contacts. Plan: Labs, EKG, CXR, viral testing Medical Decision Making Medical Decision Making [facility] Narrative: Patient with chronic frequent chest pain status post cardiac catheterization 2 times negative microvascular angina and GERD came with similar pain workup is negative including cardiac enzymes advised to increase the dose of Prilosec and take scrubbed with on a regular basis and follow with asparagus cutter Differential Diagnosis Differential Diagnoses: The differential diagnosis associated with the presentation includes Atypical chest pain/gastritis/ACS Lab Data [facility] Lab Attestation statement: I reviewed the patient's lab results. 12/22/23 15:04 12/22/23 15:04 Labs: Lab Results 12/22/23 12/22/23 12/22/23 Range/Units 15:01 15:04 20:01 WBC 8.9 (4.8-10.8) X10*3/uL RBC 4.92 (4.20-5.50) X10*6/uL Hgb 13.7 (12.0-16.0) g/dl Hct 41.7 (37.0-47.0) % MCV 84.8 (80.0-98.0) fL MCH 27.8 (27.0-33.0) pg MCHC 32.9 (31.0-35.0) g/dl RDW 12.6 (11.0-16.0) % Plt Count 293 (160-400) X10*3/uL MPV 9.6 (9.4-12.3) fL Immature Gran % (Auto) 0.3 (0.0-0.4) % Neut % (Auto) 72.5 (45-73) % Lymph % (Auto) 20.4 (20-40) % [place] % (Auto) 5.1 (2-11) % Eos % (Auto) 1.1 (0-4) % Baso % (Auto) 0.6 (0-2) % Lymph # (Auto) 1.8 (1.2-4.9) X10*3/uL [place] # (Auto) 0.5 (0.1-1.2) X10*3/uL Eos # (Auto) 0.1 (0.0-0.4) X10*3/uL Baso # (Auto) 0.1 (0.0-0.2) X10*3/uL Abs Immat Gran (auto) 0.03 (0.00-0.03) X10*3/uL Absolute Neuts (auto) 6.4 (2.0-8.3) x10*3/uL Absolute Nucleated RBC 0.000 (0.0-0.012) X10*3/uL Nucleated RBC % (auto) 0.0 (0.0-0.2) /100WBC Sodium 141 (135-145) mmol/L Potassium 4.3 (3.3-5.1) mmol/L Chloride 104 (96-108) mmol/L Carbon Dioxide 30 H (22-29) mmol/L Anion Gap 11 L (12-20) BUN 15 (9-16) mg/dL Creatinine 0.75 (0.5-1.4) mg/dL Estim Creat Clear Calc 90.3 Estimated GFR > 60 Random Glucose 104 (60-115) mg/dL Calcium 9.5 (8.4-10.2) mg/dL Magnesium 1.9 (1.6-2.6) mg/dL Total Bilirubin 0.5 (0.0-1.0) mg/dL Direct Bilirubin 0.2 (0.0-0.5) mg/dL AST 25 (5-31) U/L ALT 29 (0-31) U/L Alkaline Phosphatase 40 (39-117) U/L Troponin I High Sens < 2.7 (<3.5-17.0) ng/L Total Protein 7.0 (6.5-8.0) g/dL Albumin 4.0 (3.5-5.0) g/dL Lipase 27 (8-78) U/L Urine Color Yellow Urine Appearance Clear Urine pH 5.5 (5.0-9.0) Ur Specific [place] 1.025 (1.005-1.025) Urine Protein Negative (Neg-Trace) mg/dL Urine Glucose (UA) Negative (Negative) mg/dL Urine Ketones Negative (Negative) mg/dL Urine Blood Negative (Negative) Urine Nitrite Negative (Negative) Ur Leukocyte Esterase Negative (Negative) COVID-19 (RICK) Negative (Negative) COVID-19 Clin Com See Note Influenza Type A (BARRON) Negative (Negative) Influenza Type B (BARRON) Negative (Negative) Influenza A & B Note See Note Independent Interpretation I performed an independent interpretation of an: EKG and Plain X-Ray Interpretation: Normal sinus rhythm heart rate 65 beats per minute normal intervals poor progression of R-wave no acute ST T wave changes no acute ischemia Radiology Impression Discussion of test interpretation with radiology: I have reviewed the radiologist's reading. Discharge Plan Discharge Clinical Impression: Chest pain Patient Disposition: Home, Self-Care Instructions: Chest Pain (ED) Additional Instructions: Avoid spicy and fried food Increase the dose of Prilosec to 40 mg daily Continue sucralfate 1 tablet 3 times a day before meals Follow-up with sandblast or shotblast equipment tender/PCP See asparagus cutter Prescriptions: No Action omeprazole 20 mg capsule,delayed release(DR/EC) 20 mg PO DAILY Qty: 30 0RF famotidine [Pepcid] 20 mg tablet 20 mg PO BEDTIME Qty: 30 3RF Victoza 3-Jose 0.6 mg/0.1 mL (18 mg/3 mL) pen injector 1.8 mg subcut DAILY Qty: 27 0RF Lantus Solostar U-100 Insulin 100 unit/mL (3 mL) insulin pen 40 unit subcut QPM Qty: 15 1RF lisinopril 5 mg tablet 5 mg PO DAILY loratadine [Allergy Relief (loratadine)] 10 mg tablet 10 mg PO DAILY tramadol 50 mg tablet 50 mg PO BID PRN simethicone [Gas Relief (simethicone)] 125 mg tablet,chewable 125 mg PO QID PRN (Reason: abdominal distention) Qty: 120 2RF aspirin 81 mg tablet,delayed release (DR/EC) 81 mg PO DAILY metoprolol succinate 25 mg tablet extended release 24 hr 25 mg PO DAILY (DME) FreeStyle Lite Strips Strip See Rx Instructions .ROUTE .MEDSUPPLY Qty: 10 Rx Instructions: As directed once a day (DME) lancets [TRUEplus Lancets] 33 gauge misc See Rx Instructions topical .MEDSUPPLY Qty: 100 Rx Instructions: As directed rosuvastatin 40 mg tablet 40 mg PO DAILY Qty: 30 6RF sucralfate 1 gram tablet 1 g PO DAILY Qty: 30 2RF gabapentin 600 mg tablet 600 mg PO BEDTIME duloxetine [Cymbalta] 20 mg capsule,delayed release(DR/EC) 20 mg PO BID tramadol 50 mg tablet 50 mg PO DAILY Referrals: Sudarshan Meyer MD [Physician] -
[2023-12-22 15:26] LABS: Alanine Aminotransferase 29 U/L (0-31); Alkaline Phosphatase 40 U/L (39-117); Anion Gap 11 (12-20); Aspartate Amino Transferase 25 U/L (5-31); Bilirubin Direct 0.2 mg/dL (0.0-0.5); Bilirubin Total 0.5 mg/dL (0.0-1.0); Blood Urea Nitrogen 15 mg/dL (9-16); Calcium 9.5 mg/dL (8.4-10.2); Carbon Dioxide 30 mmol/L (22-29); Chloride 104 mmol/L (96-108); Creatinine Clr Calc Pharmacy 90.3; Estimated Glomerular Filt Rate > 60; Glucose Random 104 mg/dL (60-115); Lipase 27 U/L (8-78); Magnesium 1.9 mg/dL (1.6-2.6); Potassium 4.3 mmol/L (3.3-5.1); Sodium 141 mmol/L (135-145)
[2023-12-22 15:33] LABS: COVID-19 Test Negative (Negative); IDNOW Serial# 08D9AD1C; IDNOW Serial# 152EDE1D; Influenza A Negative (Negative); Influenza B2 Negative (Negative)
[2023-12-22 15:34] LABS: Troponin-I High Sensitivity < 2.7 ng/L (<3.5-17.0)
[2023-12-22 19:45] VITALS: BP 156/74; PULSE 63; RESP 18; O2SAT 98
[2023-12-22 20:07] LABS: Appearance Urine Clear; Color Urine Yellow; Glucose Urine UA Negative (Negative); Leukocyte Esterase Urine Negative (Negative); Nitrite Urine Negative (Negative); PH 5.5 (5.0-9.0); Specific Gravity - Urine 1.025 (1.005-1.025); Urine Blood Negative (Negative); Urine Ketones Negative (Negative); Urine Protein Negative (Neg-Trace)
[2023-12-22] MEDS: Magnesium Hydrox/Alum Hydrox 30 ML ORAL.SUSP PO (22:41)
== END 2023-12-22 22:44 | disposition home or self-care (01) ==
PROVIDERS: Nurse Practitioner Family; Emergency Provider Internal Medicine; PCP Internal Medicine
DX: R07.9 Chest pain, unspecified (principal); Z11.52 Encounter for screening for COVID-19; E11.9 Type 2 diabetes mellitus without complications; I10 Essential (primary) hypertension; E78.5 Hyperlipidemia, unspecified; Z79.4 Long term (current) use of insulin; Z79.82 Long term (current) use of aspirin; Z79.899 Other long term (current) drug therapy
CPT/HCPCS: 36415; 71045; 80048; 80076; 81003; 83690; 83735; 84484; 85025; 87502; 87635; 93005; 99283; 99285

== ENCOUNTER → 2023-12-22 13:48 | Outpatient (BNV) | payer OTHER, SELFPAY | PROVIDERS: PCP Internal Medicine; Visit Provider Internal Medicine | DX: R94.31 Abnormal electrocardiogram [ECG] [EKG] (principal) | CPT/HCPCS: 93010 ==

== ENCOUNTER 2023-12-29 08:02 | Outpatient (AMB) | payer OTHER, SELFPAY ==
[2023-12-29 08:09] VITALS: BP 142/94; PULSE 73; BMI 40.3
--- NOTE | 2023-12-29 08:09 | A.OFFVIS_ITS ---
Intake Vital Signs 12/29/23 08:09 Height 5 ft 2 in Weight 220 lb 7.396 oz BMI 40.3 BP 142/94 H Blood Pressure Location Lt brachial Position Sitting Pulse 73 Pulse Source Pulse Oximeter Intake Visit Reasons: ED follow up Claim Specialist Required: No Allergies erythromycin base [Erythromycin Base] Allergy (Severe, Verified 12/29/23 08:11) ANAPHYLAXIS oxycodone [From Percocet] Allergy (Mild, Verified 12/29/23 08:11) Nausea fluconazole [Diflucan] Allergy (Unknown, Verified 12/29/23 08:11) Abdominal Pain silver [From Tegaderm AG Mesh] Adverse Reaction (Unknown, Verified 12/29/23 08:11) rash/blisters to skin Medication List - Last Reconciled 12/29/23 by GERSON Brennan aspirin 81 mg PO DAILY blood sugar diagnostic (FreeStyle Lite Strips) As directed once a day duloxetine (Cymbalta) 20 mg PO BID famotidine (Pepcid) 20 mg PO BEDTIME gabapentin 600 mg PO BEDTIME insulin glargine (Lantus Solostar U-100 Insulin) 40 units (0.4 mL) subcut QPM isosorbide mononitrate ER 30 mg PO DAILY lancets (TRUEplus Lancets) As directed liraglutide (Victoza 3-Jose) 1.8 mg (0.3 mL) subcut DAILY lisinopril 5 mg PO DAILY loratadine (Allergy Relief (loratadine)) 10 mg PO DAILY metoprolol succinate ER 25 mg PO DAILY omeprazole 20 mg PO DAILY rosuvastatin 40 mg PO DAILY simethicone (Gas Relief (simethicone)) 125 mg PO QID PRN sucralfate 1 g PO DAILY tramadol 50 mg PO BID PRN tramadol 50 mg PO DAILY HPI ED follow up HPI Details Brynn is a 58-year-old female with past medical history of hypertension, hyperlipidemia, diabetes, morbid obesity, nonobstructive coronary artery disease who was recently seen in the ED with chest discomfort. She ruled out for ACS. She saw her PCP yesterday and Isosorbide was ordered. Today she reports that she has been getting random pressure in her left chest region. It comes and can last for minutes to hours. She has been getting diaphoretic recently with her discomfort. If she has it, doing activity seems to make it worse. She has not needed to take NTG but has it on hand. She does not believe her symptom is related to GI cause. She has increased her Prilosec without improvement. No sob, palpitation, presyncope, syncope, PND, orthopnea or edema. Taking meds as directed. Has not started the Isosorbide yet. [facility]LY [facility], [facility] Medical History Obesity due to excess calories Hyperlipidemia LDL goal <70 Type 2 diabetes mellitus with diabetic polyneuropathy Obesity Dyspnea on exertion Other and unspecified hyperlipidemia Essential hypertension Type 2 diabetes mellitus with unspecified complications Atherosclerotic cardiovascular disease Hypercholesteremia Diabetes mellitus TIA (transient ischemic attack) Gastroesophageal reflux disease Surgical History H/O cardiac catheterization Hx of tubal ligation Hx of cholecystectomy Family History Father Hx of diabetes insipidus Hx of cardiac asthma Mother Hx of cervical cancer Hx of heat stroke Social History Alcohol intake: never Patient Tobacco Use Status: Never used Tobacco Substance Use Type: Marijuana Current occupational status: employed 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 Intermittent nausea All systems reviewed & are unremarkable except as noted in HPI and below ENT Reports dizziness Card Reports chest pain, Reports chest pain at rest, Reports chest pain with activity, Denies rapid heart rate, Denies pedal edema, Denies edema, Denies leg edema, Denies lightheadedness, Denies palpitations, Denies dyspnea, Denies dyspnea on exertion and Denies orthopnea Resp Denies cough, Denies dyspnea and Denies dyspnea on exertion GI Denies hematochezia and Denies change in stool character Musc Denies abnormal gait, Denies limited range of motion, Denies muscle cramps, Denies muscle weakness, Denies numbness, Denies radiating pain into limb, Denies stiffness and Denies tingling Neuro Denies abnormal gait, Reports dizziness, Denies numbness and Denies tingling Endo Denies palpitations Physical Exam Vital Signs: Last Vital Signs Pulse 73 12/29/23 08:09 BP 142/94 H 12/29/23 08:09 BMI result Body Mass Index 40.3 Const General: cooperative, healthy appearing, comfortable and no acute distress Orientation/consciousness: patient oriented x3 Neck Neck: Yes normal visual inspection Resp Effort & Inspection: normal respiratory effort Auscultation: clear to auscultation bilaterally, no crackles, no rales, no rhonchi and no wheezes Cardio Jugular venous distension: no JVD Rate: regular rate Rhythm: regular rhythm Heart sounds: S1 normal heart sound present, S2 normal heart sound present, no murmurs and no rubs Neuro General: patient oriented x3 Extrem General: Yes normal to inspection and No no pedal edema Psych Appearance: grossly normal Mental Status: mental status grossly normal Speech and movement: Normal speech and movement present Assessment & Plan Assessment & Plan (1) Atherosclerotic cardiovascular disease: Code(s): I25.10 - Atherosclerotic heart disease of [place] coronary artery without angina pectoris Plan: History of CAD, nonobstructive. Nuclear stress test done 01/04/2021 showed [id number] ischemia in the distal anterior and anterior lateral wall. An echocardiogram done that day showed EF 60-65%, grade 1 diastolic dysfunction. She underwent cardiac catheterization on 01/15/2021 showing mid LAD 30% stenosis, RCA mild disease. She has been on medical mgt for CAD including Aspirin, Atorvastatin and Metoprolol. She was seen in the ED on 12/22/23 with report of CP. EKG shows SR, can't exclude prior anterior infarct which is unchanged from prior. Troponin normal. Her symptom was thought to be GI related and PPI increased. Today she states she continues to have intermittent discomfort in left chest. It has not improved with PPI increase. She believes it is her heart and not GI related. Saw PCP yesterday and Isosrbide was ordered for possible angina related to small vessel disease. She has not started it yet. She denies pain at present. BP is elevated today. Will have her start Isosorbide. A few days later she will increase Metoprolol xl up to 50mg daily. Will update an echocardiogram to reassess EF, wall motion. Her last nuclear stress test was abnormal - will not plan for a repeat at this time. Instructed to seek emergency medical care if needed for symptoms. Light activity at this time. She may be exeperiencing angina from her known CAD or from small vessel disease. If symptoms persist in spite of treatment with 2 antianginals, then cardiac cath may be needed. Continue aspirin. Continue atorvastatin. Will work on obtaining most recent lipids from her PCP. Reviewed all the above with her. She is agreeable to plan. Cardiology follow-up in 1 month, sooner if needed (2) Essential hypertension: Code(s): I10 - Essential (primary) hypertension Plan: as above (3) Other and unspecified hyperlipidemia: Code(s): E78.5 - Hyperlipidemia, unspecified Plan: [place] LDL goal less than 70 in patient with CAD. Will have her continue on rosuvastatin 40 mg daily. Will get copy of labs from PCP (4) Chest pain: Code(s): R07.9 - Chest pain, unspecified Qualifiers: Chest pain type: precordial pain Qualified Code(s): R07.2 - Precordial pain Plan time spent on chart review, documentation, interview, assessment Orders: Orders CA echo transthoracic complete Today R07.9 - Chest pain, unspecified Medications: New nitroglycerin do not exceed 3 doses per episode 0.4 mg sublingual Q5M PRN 25 tabs 1RF chest pain metoprolol succinate ER 50 mg PO DAILY 30 tabs 5RF Coding Level of Care Code Est Pt Level 4 (61334) Diagnoses Atherosclerotic cardiovascular disease I25.10 Essential hypertension I10 Other and unspecified hyperlipidemia E78.5 Precordial pain R07.2 Chest pain type: precordial pain Time Spent (min) 30
== END 2023-12-29 08:33 | disposition home or self-care (01) ==
PROVIDERS: PCP Internal Medicine; Visit Provider Nurse Practitioner Family
DX: I25.10 Atherosclerotic heart disease of native coronary artery without angina pectoris (principal); I10 Essential (primary) hypertension; E78.5 Hyperlipidemia, unspecified; R07.2 Precordial pain
CPT/HCPCS: 99214

== ENCOUNTER → 2023-12-29 08:02 | Outpatient (BNVA) | payer OTHER, SELFPAY | PROVIDERS: PCP Internal Medicine; Visit Provider Nurse Practitioner Family ==

== ENCOUNTER → 2024-01-25 07:43 | Outpatient (REF) | payer OTHER, SELFPAY ==
--- NOTE | 2024-01-25 07:48 | CA_ITS ---
Transthoracic Echocardiogram Patient (Last, First, Middle): Brynn Ardon E Gender: Female Date of : 1965 Age: 58 Procedure Date: 01/25/2024 Procedure Type: Transthoracic Echocardiogram Location: OP Height: 157.48 cm Weight: 99.79 kg BSA: 1.99 m2 Heart Rate: 65 bpm BP: 140 / 90 mmHg Tape Cutting Machine Operator: TO Referring MD: Anabelle Delgado CLIENT SERVICES SPECIALIST-[employer] Equipment Mechanic: Matthew Kumar MD Symptoms: R07.9 Study Quality: Adequate w contrast ECG Rhythm: Sinus Conclusions: - 1. Low normal LV ejection fraction 50-55% with impaired relaxation filling pattern 2. Normal cardiac valvular Dopplers 3. Normal RV systolic pressure 4. No gross pericardial effusion Findings Procedure Information Contrast agent, definity, is being given per protocol without apparent complications. Left Ventricle Normal left ventricular cavity size. There is normal left ventricular wall thickness. The left ventricular systolic function is low normal. The visually estimated ejection fraction is between 50-55%. Spectral Doppler is indicative of an impaired relaxation filling pattern. E/E prime ratio is between 8 and 15 consistent with indeterminate filling pressures. Right Ventricle Normal right ventricular cavity size and systolic function. Atria The left atrium is normal in size. There is no evidence of interatrial shunt. The right atrium is normal in size. Aortic Valve Normal aortic valve structure and function. There is no aortic valve stenosis. There is no aortic valve regurgitation. Mitral Valve Normal mitral valve structure and function. There is trace mitral valve regurgitation. There is no mitral valve stenosis. Pulmonic Valve The pulmonic valve is likely normal. There is trace pulmonic valve regurgitation. Tricuspid Valve Normal tricuspid valve structure. There is trace tricuspid valve regurgitation. The right ventricular systolic pressure is normal. The right ventricular systolic pressure is 13 mmHg. Normal right atrial pressure. There is no evidence of pulmonary hypertension. Great Vessels The pulmonary artery was not well visualized. There is no dilatation of the ascending aorta measuring 2.90 cm. Venous The inferior vena cava is normal in size and collapses greater than 50% with inspiration. Pericardium/Pleural There is no evidence of pericardial effusion. Prior Study Comparison Changes noted compared to prior study dated: 01/04/2021. LV systolic function as marginally reduced Measurements 2D Linear Measurements IVSd: 1.00 0.6-0.9/0.6-1.0 cm LVIDd: 5.09 3.9-5.3/4.2-5.9 cm LVIDd Index: 2.56 2.4-3.2/2.2-3.1 cm/m2 LVIDs: 3.45 2.0-3.6 cm LVPWd: 0.75 0.7-1.1 cm LA Diam: 3.50 2.7-3.8/3.0-4.0 cm LAIDs Index: 1.76 1.5-2.3 cm/m2 LV Mass: 195.38 67-162/88-224 g LV Mass Index: 98.18 43-95/49-115 g/m2 LVOT Diam: 1.90 3.0+(-)1.3 cm 2D Systolic Function EF 4C: 48.60 >55% EF 2C: 55.40 >55% EF BiP: 51.50 >55% Mitral Valve MV Pk E: 0.63 MV PK A: 0.75 MV Decel Time: 222.00 E/A: 0.80 E'Lateral: 7.51 E'Medial: 4.57 E/E' Med: 13.70 E/E' Lat: 8.30 PHT: 65.00 MVA PHT: 3.38 Decel Dickey: 2.82 Aortic Valve AoV Pk Gustavo: 1.28 AoV Mn Gustavo: 0.88 AoV VTI: 0.28 AoV Pk Grad: 7.00 Aov Mn Grad: 4.00 FARZAD Cont.VTI: 1.96 LVOT LVOT Pk Gustavo: 0.78 LVOT Mn Gustavo: 0.58 LVOT VTI: 0.19 LVOT Pk Grad: 2.00 LVOT Mn Grad: 1.00 LVOT Diam: 1.90 LVOT Area: 2.84 Diastolic Function MV Pk E: 0.63 MV Pk A: 0.75 E/A: 0.80 E'Medial: 4.57 E/E' Med: 13.70 E' Laterial: 7.51 E/E' Lat: 8.30 Right Ventricle TAPSE (mm): 18.40 TVS' Gustavo: 10.10 Tricuspid Valve TR Pk Gustavo: 1.56 TR Pk Grad: 10.00 RA Press: 3.00 RVSP: 13.00 Great Vessels Aorta Sinus of Valsalva: 3.10 2.0-3.5 cm Ao Asc: 2.90 2.1-3.4 cm Ao Arch: 2.70 Updated in Other Vendor System with Status of Final Matthew Kumar MD electronically signed on 01/26/2024 8:49:40 AM with status of Final
== END ==
LOC: HO.CARD 07:43
PROVIDERS: PCP Internal Medicine; Visit Provider Nurse Practitioner Family
DX: R07.9 Chest pain, unspecified (principal)
CPT/HCPCS: 93306; Q9957

== ENCOUNTER → 2024-01-25 07:48 | Outpatient (BNV) | payer OTHER, SELFPAY | PROVIDERS: PCP Internal Medicine; Visit Provider Internal Medicine Cardiovascular Disease | DX: R07.9 Chest pain, unspecified (principal) | CPT/HCPCS: 93306 ==

== ENCOUNTER 2024-01-26 08:26 | Outpatient (AMB) | payer OTHER, SELFPAY ==
[2024-01-26 08:37] VITALS: BP 114/72; PULSE 76; BMI 40.2
--- NOTE | 2024-01-26 08:37 | A.OFFVIS_ITS ---
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: No Allergies erythromycin base [Erythromycin Base] Allergy (Severe, Verified 01/26/24 08:39) ANAPHYLAXIS oxycodone [From Percocet] Allergy (Mild, Verified 01/26/24 08:39) Nausea fluconazole [Diflucan] Allergy (Unknown, Verified 01/26/24 08:39) Abdominal Pain silver [From Tegaderm AG Mesh] Adverse Reaction (Unknown, Verified 01/26/24 08:39) rash/blisters to skin Medication List - Last Reconciled 01/26/24 by GERSON Brennan aspirin 81 mg PO DAILY blood sugar diagnostic (FreeStyle Lite Strips) As directed once a day duloxetine (Cymbalta) 20 mg PO BID famotidine (Pepcid) 20 mg PO BEDTIME gabapentin 600 mg PO BEDTIME insulin glargine (Lantus Solostar U-100 Insulin) 40 units (0.4 mL) subcut QPM isosorbide mononitrate ER 30 mg PO DAILY lancets (TRUEplus Lancets) As directed liraglutide (Victoza 3-Jose) 1.8 mg (0.3 mL) subcut DAILY lisinopril 5 mg PO DAILY loratadine (Allergy Relief (loratadine)) 10 mg PO DAILY metoprolol succinate ER 50 mg PO DAILY nitroglycerin 0.4 mg sublingual Q5M PRN omeprazole 20 mg PO DAILY rosuvastatin 40 mg PO DAILY simethicone (Gas Relief (simethicone)) 125 mg PO QID PRN sucralfate 1 g PO DAILY tramadol 50 mg PO DAILY HPI 1 mth fu HPI Details Tessie is a 58-year-old female with past medical history of hypertension, hyperlipidemia, diabetes, morbid obesity, nonobstructive CAD who presents for follow-up. Today she reports that she continues to get a squeezing, pressure type sensation in her left chest region. It comes and goes without pattern and can last several minutes. She has not aware of any known trigger. If she relaxes and sits quietly the symptom will gradually resolve. She feels she gets it most days. The start of isosorbide and increase of metoprolol did not improve her discomfort. She does only light physical activities but does not believe the discomfort is worsened by walking or stair climbing. She does not believe it is GERD as that gives her a different type sensation. She has only mild shortness of breath with exertional activities. No PND, orthopnea or edema. No lightheadedness, presyncope, syncope, falls. Taking meds as directed. [facility] Medical History Obesity due to excess calories Hyperlipidemia LDL goal <70 Type 2 diabetes mellitus with diabetic polyneuropathy Obesity Dyspnea on exertion Other and unspecified hyperlipidemia Essential hypertension Type 2 diabetes mellitus with unspecified complications Atherosclerotic cardiovascular disease Hypercholesteremia Diabetes mellitus TIA (transient ischemic attack) Gastroesophageal reflux disease Surgical History H/O cardiac catheterization Hx of tubal ligation Hx of cholecystectomy Family History Father Hx of diabetes insipidus Hx of cardiac asthma Mother Hx of cervical cancer Hx of heat stroke Social History Alcohol intake: never Patient Tobacco Use Status: Never used Tobacco Substance Use Type: Marijuana Current occupational status: employed 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 Review of Systems Const All systems reviewed & are unremarkable except as noted in HPI and below ENT Denies dizziness Card Reports chest pain, Reports chest pain at rest, Reports chest pain with activity, Denies rapid heart rate, Denies pedal edema, Denies edema, Denies leg edema, Denies lightheadedness, Denies palpitations, Reports dyspnea, Denies dyspnea on exertion and Denies orthopnea Resp Denies cough, Reports dyspnea and Denies dyspnea on exertion GI Denies hematochezia and Denies change in stool character Musc Denies abnormal gait, Denies limited range of motion, Denies muscle cramps, Denies muscle weakness, Denies numbness, Denies radiating pain into limb, Denies stiffness and Denies tingling Neuro Denies abnormal gait, Denies dizziness, Denies numbness and Denies tingling Endo Denies palpitations Physical Exam Vital Signs: Last Vital Signs Pulse 76 01/26/24 08:37 BP 114/72 01/26/24 08:37 BMI result Body Mass Index 40.2 Const General: cooperative, healthy appearing, comfortable and no acute distress Orientation/consciousness: patient oriented x3 Neck Neck: Yes normal visual inspection Resp Effort & Inspection: normal respiratory effort Auscultation: clear to auscultation bilaterally, no crackles, no rales, no rhonc hi and no wheezes Cardio Jugular venous distension: no JVD Rate: regular rate Rhythm: regular rhythm Heart sounds: S1 normal heart sound present, S2 normal heart sound present, no murmurs and no rubs Neuro General: patient oriented x3 Extrem General: Yes normal to inspection and No no pedal edema Psych Appearance: grossly normal Mental Status: mental status grossly normal Speech and movement: Normal speech and movement present Assessment & Plan Assessment & Plan (1) Atherosclerotic cardiovascular disease: Code(s): I25.10 - Atherosclerotic heart disease of [place] coronary artery without angina pectoris Plan: History of CAD, nonobstructive. Nuclear stress test done 01/04/2021 showed [id number] ischemia in the distal anterior and anterior lateral wall. An echocardiogram done that day showed EF 60-65%, grade 1 diastolic dysfunction. She underwent cardiac catheterization on 01/15/2021 showing mid LAD 30% stenosis, RCA mild disease. She has been on medical mgt for CAD including Aspirin, Atorvastatin and Metoprolol. She was seen in the ED on 12/22/23 with report of CP. EKG shows SR, can't exclude prior anterior infarct which is unchanged from prior. Troponin normal. Her symptom was thought to be GI related and PPI increased. On follow-up she continued to report the same intermittent discomfort in spite of PPI use. Isosorbide was added and metoprolol dose was increased. Today she reports that she continues to get a squeezing pressure type sensation in her left upper chest that occurs randomly. An echocardiogram done on 01/25/2024 shows EF 50-55%, impaired relaxation, no reported regional wall motion abnormality. She needs further evaluation for ischemia. Will check with her primary bore miner operator Dr. Graves regarding diagnostic cardiac catheterization. She had abnormal stress test in the past. Continue current med management with aspirin, atorvastatin, metoprolol, isosorbide. Instructed to seek emergency medical care if needed for symptoms. Light activity at this time. Reviewed all the above with her. She is agreeable to plan. Cardiology follow-up to be determined based on testing done. (2) Essential hypertension: Code(s): I10 - Essential (primary) hypertension Plan: Well controlled at this time. No med changes made (3) Other and unspecified hyperlipidemia: Code(s): E78.5 - Hyperlipidemia, unspecified Plan: [place] LDL goal less than 70 in patient with CAD. Labs obtained from PCP office 01/27/2023 had shown LDL 169. She is currently on rosuvastatin 40 mg daily. Unknown if she was on this med and dose at the time of those labs. Recommend a repeat of her lipid profile. (4) Chest pain: Code(s): R07.9 - Chest pain, unspecified Qualifiers: Chest pain type: precordial pain Qualified Code(s): R07.2 - Precordial pain Plan: As above Plan time spent on chart review, documentation, interview, assessment Coding Level of Care Code Est Pt Level 4 (77325) Diagnoses Atherosclerotic cardiovascular disease I25.10 Essential hypertension I10 Other and unspecified hyperlipidemia E78.5 Precordial pain R07.2 Chest pain type: precordial pain Time Spent (min) 28
== END 2024-01-26 09:18 | disposition home or self-care (01) ==
PROVIDERS: PCP Internal Medicine; Visit Provider Nurse Practitioner Family
DX: I25.10 Atherosclerotic heart disease of native coronary artery without angina pectoris (principal); I10 Essential (primary) hypertension; E78.5 Hyperlipidemia, unspecified; R07.2 Precordial pain
CPT/HCPCS: 99214

== ENCOUNTER → 2024-01-26 08:26 | Outpatient (BNVA) | payer OTHER, SELFPAY | PROVIDERS: PCP Internal Medicine; Visit Provider Nurse Practitioner Family ==

== ENCOUNTER 2024-02-06 07:28 | Outpatient (REF) | payer OTHER, SELFPAY ==
[2024-02-06 07:40] LABS: MANUAL DIFF FLAG NO
[2024-02-06 07:43] LABS: Basophils Absolute Auto 0.1 X10*3/uL (0.0-0.2); Basophils Percent Auto 0.8 % (0-2); Eosinophils Absolute Auto 0.1 X10*3/uL (0.0-0.4); Eosinophils Percent Auto 1.4 % (0-4); Hematocrit 43.1 % (37.0-47.0); Hemoglobin 14.3 g/dl (12.0-16.0); Imm Gran Abs Auto 0.02 X10*3/uL (0.00-0.03); Imm Gran Pct Auto 0.3 % (0.0-0.4); Lymphocytes Absolute Auto 1.4 X10*3/uL (1.2-4.9); Lymphocytes Percent Auto 18.1 % (20-40); Mean Corpuscular HGB Conc 33.2 g/dl (31.0-35.0); Mean Corpuscular Hemoglobin 28.4 pg (27.0-33.0); Mean Corpuscular Volume 85.5 fL (80.0-98.0); Mean Platelet Volume 9.7 fL (9.4-12.3); Monocytes Absolute Auto 0.4 X10*3/uL (0.1-1.2); Monocytes Percent Auto 5.1 % (2-11); Neutrophils Absolute Auto 5.8 x10*3/uL (2.0-8.3); Neutrophils Percent Auto 74.3 % (45-73); Platelet Count 283 X10*3/uL (160-400); Red Blood Count 5.04 X10*6/uL (4.20-5.50); Red Cell Distribution Width 13.2 % (11.0-16.0); White Blood Count 7.8 X10*3/uL (4.8-10.8)
[2024-02-06 07:48] LABS: Prothrombin Time 11.9 SEC (11.1-13.3)
[2024-02-06 08:15] LABS: Anion Gap 13 (12-20); Blood Urea Nitrogen 22 mg/dL (9-16); Calcium 9.6 mg/dL (8.4-10.2); Carbon Dioxide 28 mmol/L (22-29); Chloride 106 mmol/L (96-108); Cholesterol 245 mg/dL (<200); Estimated Glomerular Filt Rate > 60; Glucose Random 125 mg/dL (60-115); HDL Cholesterol 54 mg/dL (>40); LDL Cholesterol Calculated 172 mg/dL (<100); Potassium 3.9 mmol/L (3.3-5.1); Sodium 143 mmol/L (135-145); Triglycerides 98 mg/dL (<150)
== END 2024-02-06 07:29 | disposition home or self-care (01) ==
LOC: HO.LAB 07:28
PROVIDERS: PCP Internal Medicine; Visit Provider Nurse Practitioner Family
DX: I25.10 Atherosclerotic heart disease of native coronary artery without angina pectoris (principal)
CPT/HCPCS: 36415; 80048; 80061; 85025; 85610

== ENCOUNTER → 2024-02-13 23:59 | Outpatient (BNV) | payer OTHER, SELFPAY | PROVIDERS: PCP Internal Medicine; Visit Provider Internal Medicine Cardiovascular Disease | DX: I20.89 Other forms of angina pectoris (principal); R93.1 Abnormal findings on diagnostic imaging of heart and coronary circulation | CPT/HCPCS: 93458; 99152 ==

== ENCOUNTER 2024-02-23 08:34 | Outpatient (AMB) | payer OTHER, SELFPAY ==
[2024-02-23 08:53] VITALS: BP 116/68; PULSE 72; BMI 40.3
--- NOTE | 2024-02-23 08:53 | MHC.OFFVIS ---
Intake Vital Signs 02/23/24 08:53 Height 5 ft 2 in Weight 220 lb 7.396 oz BMI 40.3 BP 116/68 Blood Pressure Location Lt brachial Position Sitting Pulse 72 Intake Visit Reasons: Follow up post cardiac cath Intake Note: follow up post cardiac cath pt feels good but some SOB Allergies erythromycin base [Erythromycin Base] Allergy (Severe, Verified 01/26/24 08:39) ANAPHYLAXIS oxycodone [From Percocet] Allergy (Mild, Verified 01/26/24 08:39) Nausea fluconazole [Diflucan] Allergy (Unknown, Verified 01/26/24 08:39) Abdominal Pain silver [From Tegaderm AG Mesh] Adverse Reaction (Unknown, Verified 01/26/24 08:39) rash/blisters to skin Medication List - Last Reconciled 02/23/24 by GERSON Brennan aspirin 81 mg PO DAILY blood sugar diagnostic (FreeStyle Lite Strips) As directed once a day duloxetine (Cymbalta) 20 mg PO BID famotidine (Pepcid) 20 mg PO BEDTIME furosemide (Lasix) 20 mg PO Q OTHER DAY gabapentin 600 mg PO BEDTIME insulin glargine (Lantus Solostar U-100 Insulin) 40 units (0.4 mL) subcut QPM isosorbide mononitrate ER 30 mg PO DAILY lancets (TRUEplus Lancets) As directed liraglutide (Victoza 3-Jose) 1.8 mg (0.3 mL) subcut DAILY lisinopril 5 mg PO DAILY loratadine (Allergy Relief (loratadine)) 10 mg PO DAILY metoprolol succinate ER 50 mg PO DAILY nitroglycerin 0.4 mg sublingual Q5M PRN omeprazole 20 mg PO DAILY rosuvastatin 40 mg PO DAILY simethicone (Gas Relief (simethicone)) 125 mg PO QID PRN sucralfate 1 g PO DAILY tramadol 50 mg PO DAILY HPI Follow up post cardiac cath HPI Details Tessie is a 58-year-old female with past medical history of hypertension, hyperlipidemia, diabetes, morbid obesity, nonobstructive CAD who reported squeezing pressure in her left chest region on last visit. She then underwent cardiac catheterization showing nonobstructive coronary disease. Today she reports that she has been feeling better recently. She has not been getting as much of the squeezing pressure in her left chest. She is unsure of what has made it feel better. She has no new symptoms to report. She has only mild shortness of breath with exertional activities. No PND, orthopnea or edema. No lightheadedness, presyncope, syncope, falls. Right groin cath site is feeling good. Taking meds as directed. [facility] Medical History Obesity due to excess calories Hyperlipidemia LDL goal <70 Type 2 diabetes mellitus with diabetic polyneuropathy Obesity Dyspnea on exertion Other and unspecified hyperlipidemia Essential hypertension Type 2 diabetes mellitus with unspecified complications Atherosclerotic cardiovascular disease Hypercholesteremia Diabetes mellitus TIA (transient ischemic attack) Gastroesophageal reflux disease Surgical History (Updated 02/23/24 @ 12:23 by Anabelle Delgado, JENNIFER-C) H/O cardiac catheterization Hx of tubal ligation Hx of cholecystectomy Family History Father Hx of diabetes insipidus Hx of cardiac asthma Mother Hx of cervical cancer Hx of heat stroke Social History Alcohol intake: never Patient Tobacco Use Status: Never used Tobacco Substance Use Type: Marijuana Current occupational status: employed 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 Review of Systems Const All systems reviewed & are unremarkable except as noted in HPI and below Denies weakness ENT Denies dizziness Card Reports chest pain, Denies chest pain with activity, Denies syncope, Denies rapid heart rate, Denies pedal edema, Denies edema, Denies leg edema, Denies lightheadedness, Denies palpitations, Reports dyspnea, Denies dyspnea on exertion and Denies orthopnea Resp Denies cough, Reports dyspnea and Denies dyspnea on exertion GI Denies hematochezia and Denies change in stool character Musc Denies abnormal gait, Denies muscle cramps, Denies muscle weakness, Denies numbness, Denies radiating pain into limb and Denies tingling Neuro Denies abnormal gait, Denies dizziness, Denies syncope, Denies numbness, Denies tingling and Denies weakness Endo Denies palpitations Physical Exam Vital Signs: Last Vital Signs Pulse 72 02/23/24 08:53 BP 116/68 02/23/24 08:53 BMI result Body Mass Index 40.3 Const General: cooperative, healthy appearing, comfortable and no acute distress Orientation/consciousness: patient oriented x3 Neck Neck: Yes normal visual inspection Resp Effort & Inspection: normal respiratory effort Auscultation: clear to auscultation bilaterally, no crackles, no rales, no rhonchi and no wheezes Cardio Jugular venous distension: no JVD Rate: regular rate Rhythm: regular rhythm Heart sounds: S1 normal heart sound present, S2 normal heart sound present, no murmurs and no rubs Neuro General: patient oriented x3 Extrem General: Yes normal to inspection and No no pedal edema Psych Appearance: grossly normal Mental Status: mental status grossly normal Speech and movement: Normal speech and movement present Assessment & Plan Assessment & Plan (1) Atherosclerotic cardiovascular disease: Code(s): I25.10 - Atherosclerotic heart disease of [place] coronary artery without angina pectoris Plan: History of CAD, nonobstructive. Nuclear stress test done 01/04/2021 showed [id number] ischemia in the distal anterior and anterior lateral wall. An echocardiogram done that day showed EF 60-65%, grade 1 diastolic dysfunction. She underwent cardiac catheterization on 01/15/2021 showing mid LAD 30% stenosis, RCA mild disease. She has been on medical mgt for CAD including Aspirin, Atorvastatin and Metoprolol. She was seen in the ED on 12/22/23 with report of CP. Her symptom was thought to be GI related and PPI increased. On follow-up she continued to report the same intermittent discomfort in spite of PPI use. Isosorbide was added and metoprolol dose was increased without improvement in symptoms. An echocardiogram done on 01/25/2024 shows EF 50-55%, impaired relaxation, no reported regional wall motion abnormality. She underwent a cardiac catheterization on 02/13/2024 showing nonobstructive mid LAD stenosis, 30-40%, no significant disease elsewhere. Her symptom is now felt to be noncardiac. At this time she states that the squeezing pressure discomfort in her left upper chest has improved since her last visit. She will get it only periodically and randomly. Informed her she can further discuss with her PCP. Continue current med management with aspirin, atorvastatin, metoprolol. Will have her stop isosorbide. Reviewed all the above with her. Cardiology follow-up 6 months, sooner if needed. (2) Essential hypertension: Code(s): I10 - Essential (primary) hypertension Plan: Well controlled at this time. No med changes made (3) Other and unspecified hyperlipidemia: Code(s): E78.5 - Hyperlipidemia, unspecified Plan: [place] LDL goal less than 70 in patient with CAD. Labs obtained from PCP office 01/27/2023 had shown LDL 169. She is currently on rosuvastatin 40 mg daily. Unknown if she was on this med and dose at the time of those labs. Recommend a repeat of her lipid profile. (4) Chest pain: Code(s): R07.9 - Chest pain, unspecified Qualifiers: Chest pain type: precordial pain Qualified Code(s): R07.2 - Precordial pain Plan: As above (5) H/O cardiac catheterization: Comment: in 2019; most recently 01/15/21 @ [facility] - Dr. Rivas, catheterization 02/13/2024 showed mid LAD 30-40% stenosis, RCA minimal luminal irregularities Code(s): Z98.890 - Other specified postprocedural states Plan: As above, right groin catheterization site well healed, palpable femoral pulse, no bruit, right leg assessment normal Plan time spent on chart review, documentation, interview, assessment Coding Level of Care Code Est Pt Level 4 (57423) Diagnoses Atherosclerotic cardiovascular disease I25.10 Essential hypertension I10 Other and unspecified hyperlipidemia E78.5 Precordial pain R07.2 Chest pain type: precordial pain H/O cardiac catheterization Z98.890 Time Spent (min) 30
== END 2024-02-23 09:17 | disposition home or self-care (01) ==
PROVIDERS: PCP Internal Medicine; Visit Provider Nurse Practitioner Family
DX: I25.10 Atherosclerotic heart disease of native coronary artery without angina pectoris (principal); I10 Essential (primary) hypertension; E78.5 Hyperlipidemia, unspecified; R07.2 Precordial pain; Z98.890 Other specified postprocedural states
CPT/HCPCS: 99214

== ENCOUNTER → 2024-02-23 08:34 | Outpatient (BNVA) | payer OTHER, SELFPAY | PROVIDERS: PCP Internal Medicine; Visit Provider Nurse Practitioner Family ==

== ENCOUNTER 2024-06-21 08:24 | Outpatient (AMB) | payer OTHER, SELFPAY ==
--- NOTE | 2024-06-21 08:26 | MHC.OFFVIS ---
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 Accompanied by: Self / Same As Patient Allergies erythromycin base [Erythromycin Base] Allergy (Severe, Verified 06/21/24 08:39) ANAPHYLAXIS oxycodone [From Percocet] Allergy (Mild, Verified 06/21/24 08:39) Nausea fluconazole [Diflucan] Allergy (Unknown, Verified 06/21/24 08:39) Abdominal Pain silver [From Tegaderm AG Mesh] Adverse Reaction (Unknown, Verified 06/21/24 08:39) rash/blisters to skin HPI HPI Chronic Low Back Pain: Details: This is a 58 years pleasant female with history of chronic low back pain, morbid obesity, diabetes, and peripheral neuropathy, presents today for initial evaluation for low back pain and painful bilateral foot pain due to neuropathy. Denies any recent trauma, injury or falls. Denies any previous spine surgery or injections. She completed physical therapy last year with partial improvement. Reports burning, numbness, tingling and nagging pain in both feet, worse at evening or bedtime. Back pain is axial and non-radiating. Pain is constant and is rated at 8/10. Back pain has been resistant to conservative treatments. Patient is interested to undergo interventional treatments to address her axial low back pain and painful diabetic neuropathy. Denies any fever, chills, abdominal or groin pain, weakness, bladder or bowel dysfunction or saddle anesthesia. Oswestry low back pain disability score=24 (moderate disability) Location: Lower back pain, bilateral foot pain Duration: Chronic pain for many years Characteristics of symptom or complaint: Aching, dull, sore, heavy, shooting, stabbing, burning, numbness, tingling Aggravating or associated factors: Movement, bending, standing, pain with ADLs Relieving factors: Rest, heat therapy, lidocaine patches, gabapentin, tramadol, duloxetine Treatment: PT in 2022, massage therapy [facility] Medical History Obesity due to excess calories Hyperlipidemia LDL goal <70 Type 2 diabetes mellitus with diabetic polyneuropathy Obesity Dyspnea on exertion Other and unspecified hyperlipidemia Essential hypertension Type 2 diabetes mellitus with unspecified complications Atherosclerotic cardiovascular disease Hypercholesteremia Diabetes mellitus TIA (transient ischemic attack) Gastroesophageal reflux disease Surgical History H/O cardiac catheterization Hx of tubal ligation Hx of cholecystectomy Family History Father Hx of diabetes insipidus Hx of cardiac asthma Mother Hx of cervical cancer Hx of heat stroke Social History Alcohol intake: never Patient Tobacco Use Status: Never used Tobacco Substance Use Type: Marijuana Current occupational status: employed 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 Morbidly obese. Alert and oriented. Mood and affect appropriate. Follows and participates in conversation appropriately. Respiratory effort is unlabored. No cough. Able to transition from sit to stand unassisted. Ambulates with bilaterally normal heel strike and toe off. General: Yes no CVA tenderness Back/Spine/Pelvis Other: Patient is able to walk and stand on heels and tip toes with no difficulties demonstrating good motor tone. Non-antalgic gait, no limping. Can flex forward to 70-75 degrees and extend to 5-10 degrees before experiencing lumbar pain, moderate pain with lumbar extension and lateral rotations. No midline tenderness to palpation in the thoracic or lumbar spine. Demonstrates 5/5 strength of quadriceps bilaterally as well as flexion/dorsiflexion of bilateral feet against resistance. 2+ pedal pulses bilaterally. Seated straight leg rise with dorsiflexion negative bilaterally. +2 patellar and achilles reflexes bilaterally. Facet loading test positive bilaterally. Faina sign + bilaterally, Hernán?s and Stinchfield tests are negative bilaterally. No groin pain with I/E hip rotations. Back: no CVA tenderness Cervical Spine: cervical ROM normal, cervical muscular tenderness and No Cervical spine tenderness Thoracic/Lumbar Spine: thoracic and lumbar spine normal to inspection, No Thoracic/lumbar spine scar(s), Lasegue's sign negative, straight leg raise negative bilaterally, pain with thoraco-lumbar ROM, paraspinal muscle tenderness, thoraco-lumbar ROM limited, No thoracic spinal tenderness and lumbar spinal tenderness (L3-S1) Sacroiliac joints: bilaterally tender to palpation Extrem Other: There is a decreased sensation over the soles of the feet and toes. Reports numbness, burning, hot, tingling in both feet, worse at night time. No breaks in the skin. No soft tissue swelling or warmth. +2 pedal pulses bilaterally. General: Yes capillary refill normal, Yes no clubbing, cyanosis or edema and Yes no calf tenderness Results Reviewed Results Reviewed: XR LUMBOSACRAL SPINE 03/28/23 CLINICAL INFORMATION: Chronic low back pain FINDINGS: There is normal lumbar lordosis. The vertebral heights, alignment and disc heights are normal. No visible acute fracture, dislocation or subluxation seen. No bony erosive changes there is mild spondylosis lumbar spine. The paravertebral soft tissues are normal. IMPRESSION: Mild spondylosis. No visible acute fracture, dislocation or subluxation seen. MR SPINE LUMBAR without CONTRAST 10/30/23 INDICATION: Worsening low back pain with paresthesia of bilateral legs, more on the right side than left. Additional history: Hypertension. Diabetes. TECHNIQUE: Unenhanced multiplanar, multisequence MR imaging of the lumbar spine. COMPARISON: None available. FINDINGS: There is normal alignment of the lumbar vertebral bodies. The vertebral bodies are of normal height. Benign vertebral body hemangiomas L2 to and L4. The intervertebral disc space heights are maintained. Mild lower lumbar facet arthrosis. No acute process of the posterior elements. Conus and cauda equina of normal appearance. Conus tip L1. No acute paraspinal abnormality identified. No findings of sacral fracture. Examination through the L1-L2 intervertebral level revealing small posterior disc osteophyte. No significant central stenosis or foraminal narrowing. Examination through the L2-L3 intervertebral level without central stenosis or foraminal narrowing. Examination through the L3-L4 intervertebral level without central stenosis. There is no significant RIGHT foraminal narrowing. There is a LEFT posterior lateral disc osteophyte encroaching on the LEFT lateral recess and resulting in a mild to moderate LEFT foraminal narrowing. Examination through the L4-L5 intervertebral level revealing mild facet arthrosis. Small posterior disc osteophyte. No significant central stenosis. No significant RIGHT foraminal narrowing. Mild LEFT foraminal narrowing. Examination through the L5-S1 intervertebral level revealing mild facet arthrosis without central stenosis or foraminal narrowing. Impression: Mild spondylotic changes and mild lower lumbar facet arthrosis. No findings of fracture or listhesis. No findings to suggest acute disc protrusion. L3-L4 intervertebral level without central stenosis. There is no significant RIGHT foraminal narrowing. There is a LEFT posterior lateral disc osteophyte encroaching on the LEFT lateral recess and resulting in a mild to moderate LEFT foraminal narrowing. L4-L5 intervertebral level revealing mild facet arthrosis. Small posterior disc osteophyte. No significant central stenosis. No significant RIGHT foraminal narrowing. Mild LEFT foraminal narrowing. Assessment & Plan Assessment & Plan (1) Chronic painful diabetic neuropathy: Code(s): E11.40 - Type 2 diabetes mellitus with diabetic neuropathy, unspecified Category: Medical (2) Lumbar spondylosis: Code(s): M47.816 - Spondylosis without myelopathy or radiculopathy, lumbar region Category: Medical (3) Chronic low back pain: Code(s): M54.50 - Low back pain, unspecified; G89.29 - Other chronic pain Category: Medical (4) Muscle spasm of back: Code(s): M62.830 - Muscle spasm of back Category: Medical (5) Lumbar degenerative disc disease: Code(s): M51.36 - Other intervertebral disc degeneration, lumbar region Category: Medical Plan For axial low back pain will plan for diagnostic bilateral L3-L4 DR L5 medial branch blocks with local and fluoroscopy. If she has significant relief from the diagnostic blocks for her axial low back pain, will consider either therapeutic injections, Sprint PNS or RFA depending on her preference. Patient is also interested to restart PT. Script provided today. Refill provided for duloxetine. Continue Ibuprofen prn, lidocaine patches and gabapentin. Patient also takes tramadol prescribed by her PCP which she reports allows her to be less symptomatic and more functional. Will try to arrange topical 8% capsaicin application for bilateral foot pain once we have confirmed availability. All questions and concerns have been answered and the patient agreed with the plan. Follow up as needed. Orders: Orders PT Evaluation and Treatment 06/21/24 E11.40 - Type 2 diabetes mellitus with diabetic neuropathy, unspecified, G89.29 - Other chronic pain, M47.816 - Spondylosis without myelopathy or radiculopathy, lumbar region, M51.36 - Other intervertebral disc degeneration, lumbar region, M54.50 - Low back pain, unspecified, M62.830 - Muscle spasm of back Medications: Changed From duloxetine (Cymbalta) 20 mg PO BID E11.40 - Type 2 diabetes mellitus with diabetic neuropathy, unspecified To duloxetine (Cymbalta) 20 mg PO BID 30 days 60 caps 0RF pain E11.40 - Type 2 diabetes mellitus with diabetic neuropathy, unspecified Coding Level of Care Code New Pt Level 4 (03666) Diagnoses Chronic painful diabetic neuropathy E11.40 Lumbar spondylosis M47.816 Chronic low back pain M54.50; G89.29 Muscle spasm of back M62.830 Lumbar degenerative disc disease M51.36
[2024-06-21 08:36] VITALS: BP 117/58; PULSE 83; O2SAT 98; BMI 41.4
== END 2024-06-21 09:44 | disposition home or self-care (01) ==
PROVIDERS: PCP Internal Medicine; Referring Provider Internal Medicine; Visit Provider Nurse Practitioner Family
DX: E11.40 Type 2 diabetes mellitus with diabetic neuropathy, unspecified (principal); M47.816 Spondylosis without myelopathy or radiculopathy, lumbar region; M54.50 Low back pain, unspecified; G89.29 Other chronic pain; M62.830 Muscle spasm of back; M51.36 Other intervertebral disc degeneration, lumbar region
CPT/HCPCS: 99204

== ENCOUNTER → 2024-06-21 08:24 | Outpatient (BNVA) | payer OTHER, SELFPAY | PROVIDERS: PCP Internal Medicine; Referring Provider Internal Medicine; Visit Provider Nurse Practitioner Family ==

== ENCOUNTER 2024-08-01 08:19 | Outpatient (AMB) | payer OTHER, SELFPAY ==
[2024-08-01 08:49] VITALS: BP 118/72; PULSE 76; BMI 41.5
--- NOTE | 2024-08-01 08:49 | A.OFFVIS_ITS ---
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 Accompanied by: Self / Same As Patient Allergies erythromycin base [Erythromycin Base] Allergy (Severe, Verified 06/21/24 08:39) ANAPHYLAXIS oxycodone [From Percocet] Allergy (Mild, Verified 06/21/24 08:39) Nausea fluconazole [Diflucan] Allergy (Unknown, Verified 06/21/24 08:39) Abdominal Pain silver [From Tegaderm AG Mesh] Adverse Reaction (Unknown, Verified 06/21/24 08:39) rash/blisters to skin Medication List - Last Reconciled 08/01/24 by Mitchell Graves MD aspirin 81 mg PO DAILY blood sugar diagnostic (FreeStyle Lite Strips) As directed once a day duloxetine (Cymbalta) 20 mg PO BID 30 days famotidine (Pepcid) 20 mg PO BEDTIME furosemide (Lasix) 20 mg PO Q OTHER DAY gabapentin 600 mg PO BEDTIME insulin glargine (Lantus Solostar U-100 Insulin) 40 units (0.4 mL) subcut QPM lancets (TRUEplus Lancets) As directed liraglutide (Victoza 3-Jose) 1.8 mg (0.3 mL) subcut DAILY lisinopril 5 mg PO DAILY loratadine (Allergy Relief (loratadine)) 10 mg PO DAILY metoprolol succinate ER 50 mg PO DAILY nitroglycerin 0.4 mg sublingual Q5M PRN omeprazole 20 mg PO DAILY rosuvastatin 40 mg PO DAILY simethicone (Gas Relief (simethicone)) 125 mg PO QID PRN sucralfate 1 g PO DAILY tramadol 50 mg PO DAILY HPI Comments Details: Brynn returns for follow-up regarding coronary disease. She has multiple vascular risk factors including obesity, type 2 diabetes, hypertension as well as dyslipidemia. She has been seen by our nurse practitioner the last few times. Due to chest pain complaints, she underwent another cardiac catheterization this year but no new findings. She still has some chest pr essure type sensations but mainly when lying down. Not other times. Hence not clear what it is. It seems she might have obstructive sleep apnea but she is not very clear. At some point, CPAP was prescribed but she does not use it. Hence not clear what it is. [facility] Medical History Obesity due to excess calories Hyperlipidemia LDL goal <70 Type 2 diabetes mellitus with diabetic polyneuropathy Obesity Dyspnea on exertion Other and unspecified hyperlipidemia Essential hypertension Type 2 diabetes mellitus with unspecified complications Atherosclerotic cardiovascular disease Hypercholesteremia Diabetes mellitus TIA (transient ischemic attack) Gastroesophageal reflux disease Surgical History H/O cardiac catheterization Hx of tubal ligation Hx of cholecystectomy Family History Father Hx of diabetes insipidus Hx of cardiac asthma Mother Hx of cervical cancer Hx of heat stroke Social History Alcohol intake: never Patient Tobacco Use Status: Never used Tobacco Substance Use Type: Marijuana Current occupational status: employed 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 Review of Systems Const Denies chills, Denies fatigue, Denies fever(s), Denies frequent falls, Denies weakness, Denies weight gain and Denies weight loss ENT Denies dizziness Card Denies chest pain, Denies leg edema, Denies lightheadedness, Denies palpitations, Denies dyspnea and Denies dyspnea on exertion Resp Denies cough, Denies dyspnea and Denies dyspnea on exertion GI Denies hematochezia Musc Denies abnormal gait, Denies muscle weakness, Denies numbness, Denies radiating pain into limb and Denies tingling Neuro Denies abnormal gait, Denies dizziness, Denies frequent falls, Denies numbness, Denies tingling and Denies weakness Endo Denies fatigue and Denies palpitations Physical Exam Vital Signs: Last Vital Signs Pulse 76 08/01/24 08:49 BP 118/72 08/01/24 08:49 BMI result Body Mass Index 41.5 Const General: comfortable and no acute distress Orientation/consciousness: patient oriented x3 HEENT Other: Unremarkable Head: Yes normal to inspection Neck Neck: Yes normal visual inspection Chest Chest palpation & inspection: normal inspection of the chest Resp Auscultation: clear to auscultation bilaterally Cardio Palpation: normal PMI Heart sounds: S1 normal heart sound present, S2 normal heart sound present, no gallops, no murmurs and no rubs GI Palpation (GI): Soft to palpation Back/Spine/Pelvis Other: unremarkable Skin General skin exam: no rashes or lesions noted Neuro General: patient oriented x3 Extrem General: Yes normal to inspection Psych Mental Status: mental status grossly normal Assessment & Plan Assessment & Plan (1) Atherosclerotic cardiovascular disease: Code(s): I25.10 - Atherosclerotic heart disease of [place] coronary artery without angina pectoris Category: Medical Plan: Cardiac [id number] LAD with 30-40% stenosis, similar to prior study from 2020; otherwise no significant findings. Aggressive risk factor modification including weight loss, management of diabetes and other risk factors. She remains on baby aspirin. (2) Type 2 diabetes mellitus with unspecified complications: Code(s): E11.8 - Type 2 diabetes mellitus with unspecified complications Category: Medical Plan: There is no recent hemoglobin A1c in our system. Last random sugar is 125. On insulin. (3) Essential hypertension: Code(s): I10 - Essential (primary) hypertension Category: Medical Plan: Stable. (4) Other and unspecified hyperlipidemia: Code(s): E78.5 - Hyperlipidemia, unspecified Category: Medical Plan: LDL is quite high. She is on high-dose statins. Not listed to be on Zetia. In the past, insurance issues with PCSK9 inhibitors. We can re-attempt Praluent. (5) Morbid obesity: Code(s): E66.01 - Morbid (severe) obesity due to excess calories Category: Medical Plan: It has been like this for a long time. Unclear if any meaningful weight loss as feasible. Plan FU 1 year. Medications: New alirocumab (Praluent Pen) inject into abdomen, thigh, or upper arm (deltoid muscle); rotate sites 75 mg subcut Q2W 2 mL 5RF E78.5 - Hyperlipidemia, unspecified Coding Level of Care Code Est Pt Level 4 (27892) Diagnoses Atherosclerotic cardiovascular disease I25.10 Type 2 diabetes mellitus with unspecified complications E11.8 Essential hypertension I10 Other and unspecified hyperlipidemia E78.5 Morbid obesity E66.01
== END 2024-08-01 09:14 | disposition home or self-care (01) ==
PROVIDERS: PCP Internal Medicine; Visit Provider Internal Medicine
DX: I25.10 Atherosclerotic heart disease of native coronary artery without angina pectoris (principal); E11.8 Type 2 diabetes mellitus with unspecified complications; I10 Essential (primary) hypertension; E78.5 Hyperlipidemia, unspecified; E66.01 Morbid (severe) obesity due to excess calories
CPT/HCPCS: 99214

== ENCOUNTER → 2024-08-01 08:19 | Outpatient (BNVA) | payer OTHER, SELFPAY | PROVIDERS: PCP Internal Medicine; Visit Provider Internal Medicine ==

== ENCOUNTER 2024-08-13 10:09 | Outpatient (REF) | payer OTHER, SELFPAY ==
[2024-08-13 11:29] LABS: Anion Gap 12 (12-20); Blood Urea Nitrogen 15 mg/dL (9-16); Calcium 10.3 mg/dL (8.4-10.2); Carbon Dioxide 29 mmol/L (22-29); Chloride 105 mmol/L (96-108); Cholesterol 267 mg/dL (<200); Estimated Glomerular Filt Rate > 60; Glucose Random 143 mg/dL (60-115); HDL Cholesterol 53 mg/dL (>40); LDL Cholesterol Calculated 194 mg/dL (<100); Potassium 4.4 mmol/L (3.3-5.1); Sodium 142 mmol/L (135-145); Triglycerides 103 mg/dL (<150)
== END 2024-08-13 10:10 | disposition home or self-care (01) ==
LOC: HO.10HDL 10:09
PROVIDERS: Visit Provider Nurse Practitioner
DX: I25.10 Atherosclerotic heart disease of native coronary artery without angina pectoris (principal)
CPT/HCPCS: 36415; 80048; 80061

== ENCOUNTER 2024-08-20 06:10 | Outpatient (REF) | payer OTHER, SELFPAY | END 2024-08-20 06:11 | disposition home or self-care (01) | LOC: CF 06:10 | PROVIDERS: Visit Provider Anesthesiology | DX: M51.360 Other intervertebral disc degeneration, lumbar region with discogenic back pain only (principal); M47.816 Spondylosis without myelopathy or radiculopathy, lumbar region | CPT/HCPCS: 64493; 64494; J2003; J2795; Q9967 ==

== ENCOUNTER 2024-08-20 14:13 | Outpatient (AMB) | payer OTHER, SELFPAY ==
--- NOTE | 2024-08-20 14:16 | MHC.OFFVIS ---
Vital Signs 08/20/24 15:03 08/20/24 15:04 Height 5 ft 2 in 5 ft 2 in Weight 227 lb 1.2 oz 227 lb 1.2 oz BMI 41.5 41.5 BP 140/60 H 145/59 H Blood Pressure Location Lt brachial Lt brachial Position Sitting Sitting Respiration 18 18 Pulse 87 87 Pulse Source Pulse Oximeter Pulse Oximeter Pulse Oximetry (%) 98 98 Oxygen Delivery Method Room Air Room Air Comment pre-op post-op Intake Visit Reasons: BILATERAL DIAGNOSTIC L3, L4, DRL5 MBB Allergies erythromycin base [Erythromycin Base] Allergy (Severe, Verified 08/20/24 15:07) ANAPHYLAXIS oxycodone [From Percocet] Allergy (Mild, Verified 08/20/24 15:07) Nausea fluconazole [Diflucan] Allergy (Unknown, Verified 08/20/24 15:07) Abdominal Pain silver [From Tegaderm AG Mesh] Adverse Reaction (Unknown, Verified 08/20/24 15:07) rash/blisters to skin PFSH Medical History Obesity due to excess calories Hyperlipidemia LDL goal <70 Type 2 diabetes mellitus with diabetic polyneuropathy Obesity Dyspnea on exertion Other and unspecified hyperlipidemia Essential hypertension Type 2 diabetes mellitus with unspecified complications Atherosclerotic cardiovascular disease Hypercholesteremia Diabetes mellitus TIA (transient ischemic attack) Gastroesophageal reflux disease Surgical History H/O cardiac catheterization Hx of tubal ligation Hx of cholecystectomy Family History Father Hx of diabetes insipidus Hx of cardiac asthma Mother Hx of cervical cancer Hx of heat stroke Social History Alcohol intake: never Patient Tobacco Use Status: Never used Tobacco Substance Use Type: Marijuana Current occupational status: employed 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 ? ?Informed consent was explained to the patient. All questions were explained and? answered.? The patient was taken inside the operating room where she was positioned prone on the operating table. Time-out was performed delineating correct site, side, the nature of the procedure, patient's allergy, . All operating room staff was participating in OR time-out procedure. ? ? The lower back was prepped with ChloraPrep and draped with sterile towels.? C-arm was brought over the operating field and sq picture of L4-, L5 vertebra and S1 AREA were delineated on the screen.? Point of interest were delineated as confluence of superior articular process of L4 and L5 vertebra bilaterally with corresponding transverse processes as well as confluence of the sacral alae bilaterally with superior articular process of S1.? The projection of the point of interest to the skin were injected with the small amount of local anesthetic lidocaine 2% mixed with ropivacaine 0.5% 1-1 approcimately 1 cc.? After that 22 gauge 3.5 inch spinal needle was driven sequentially to the points of interest in tunnel vision fashion. After needles gently contacted the bone at the point of interests the needle was injected with small amount of the contrast.? The injection of the contrast did not demonstrate any intravascular or intrathecal spread of the contrast.? After that injection of the? ropivacaine 0.5%-1cc was performed at each needle location.??after that the needles were removed and Bandaids were applied. ? Upon completion of the injections? needle was? removed and sterile Band-Aids were applied.? The patient tolerated procedure very well. Orders: Orders FL guidance in treatment room 08/20/24 M51.36 - Other intervertebral disc degeneration, lumbar region Coding Level of Care Code Procedure Only Diagnoses Lumbar spondylosis M47.816
[2024-08-20 15:03] VITALS: BP 140/60; PULSE 87; RESP 18; O2SAT 98; BMI 41.5
[2024-08-20 15:04] VITALS: BP 145/59; PULSE 87; RESP 18; O2SAT 98; BMI 41.5
== END 2024-08-20 14:58 | disposition home or self-care (01) ==
LOC: HO.PMCPRC 14:13
PROVIDERS: PCP Internal Medicine; Visit Provider Anesthesiology
DX: M47.816 Spondylosis without myelopathy or radiculopathy, lumbar region (principal)
CPT/HCPCS: 64493; 64494

== ENCOUNTER 2024-08-27 10:41 | Outpatient (AMB) | payer OTHER, SELFPAY ==
--- NOTE | 2024-08-27 10:43 | A.OFFVIS_ITS ---
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 Frederick. Patient reports 0% pain relief and actually worsening of low back pain symptoms since the injections. She reports applying heat and ice packs, lidocaine patches and taking pain medication to relieve post-injection pain. Patient reports during injections, Dr. Frederick brought to her attention significant bone spurring in her lower lumbar spine. Patient reports increased back pain with flexing forward and bending, walking, prolonged standing and sitting or sleeping. She constantly has to adjust her positioning. Reports difficultly sleeping due to increase pain in supine or side position but cannot stay in one position for too long. She continues to take gabapentin and tramadol prescribed by her PCP. Denies any recent cough, cold, infection, fever, weakness, bladder or bowel dysfunction, saddle anesthesia or other significant changes in medical history since last office visit. PRIOR: This is a 58 years pleasant female with history of chronic low back pain, morbid obesity, diabetes, and peripheral neuropathy, presents today for initial evaluation for low back pain and painful bilateral foot pain due to neuropathy. Denies any recent trauma, injury or falls. Denies any previous spine surgery or injections. She completed physical therapy last year with partial improvement. Reports burning, numbness, tingling and nagging pain in both feet, worse at evening or bedtime. Back pain is axial and non-radiating. Pain is constant and is rated at 8/10. Back pain has been resistant to conservative treatments. Patient is interested to undergo interventional treatments to address her axial low back pain and painful diabetic neuropathy. Denies any fever, chills, abdominal or groin pain, weakness, bladder or bowel dysfunction or saddle anesthesia. Oswestry low back pain disability score=24 (moderate disability) Location: Lower back pain, bilateral foot pain Duration: Chronic pain for many years Characteristics of symptom or complaint: Aching, dull, sore, heavy, shooting, stabbing, burning, numbness, tingling Aggravating or associated factors: Movement, bending, standing, pain with ADLs Relieving factors: Rest, heat therapy, lidocaine patches, gabapentin, tramadol, duloxetine Treatment: PT in 2022, massage therapy [facility] Medical History Obesity due to excess calories Hyperlipidemia LDL goal <70 Type 2 diabetes mellitus with diabetic polyneuropathy Obesity Dyspnea on exertion Other and unspecified hyperlipidemia Essential hypertension Type 2 diabetes mellitus with unspecified complications Atherosclerotic cardiovascular disease Hypercholesteremia Diabetes mellitus TIA (transient ischemic attack) Gastroesophageal reflux disease Surgical History H/O cardiac catheterization Hx of tubal ligation Hx of cholecystectomy Family History Father Hx of diabetes insipidus Hx of cardiac asthma Mother Hx of cervical cancer Hx of heat stroke Social History Alcohol intake: never Patient Tobacco Use Status: Never used Tobacco Substance Use Type: Marijuana Current occupational status: employed 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 Morbidly obese. Alert and oriented. Mood and affect appropriate. Follows and participates in conversation appropriately. Respiratory effort is unlabored. No cough. Able to transition from sit to stand unassisted. Ambulates with bilaterally normal heel strike and toe off. General: Yes no CVA tenderness Back/Spine/Pelvis Other: Limited lumbar ROM due to pain. Mildly antalgic gait, no limping. Lumbar flexion, bending and axial rotations reproduce moderate pain. No midline tenderness to palpation in the thoracic or lumbar spine. Painful facet loading bilaterally. Demonstrates 5/5 strength of quadriceps bilaterally as well as fl exion/dorsiflexion of bilateral feet against resistance. 2+ pedal pulses bilaterally. Seated straight leg rise with dorsiflexion negative bilaterally. +2 patellar and achilles reflexes bilaterally. Faina sign + bilaterally, Hernán?s and Stinchfield tests are negative bilaterally. No groin pain with I/E hip rotations. Back: no CVA tenderness Cervical Spine: cervical ROM normal, cervical muscular tenderness and No Cervical spine tenderness Thoracic/Lumbar Spine: thoracic and lumbar spine normal to inspection, No Thoracic/lumbar spine scar(s), Lasegue's sign negative, straight leg raise negative bilaterally, pain with thoraco-lumbar ROM, paraspinal muscle tenderness, thoraco-lumbar ROM limited, No thoracic spinal tenderness and lumbar spinal tenderness (L3-S1) Pelvis: no buttock tenderness Sacroiliac joints: bilaterally tender to palpation Extrem Other: There is a decreased sensation over the soles of the feet and toes. Reports numbness, burning, hot, tingling in both feet, worse at night time. No breaks in the skin. No soft tissue swelling or warmth. +2 pedal pulses bilaterally. General: Yes capillary refill normal, Yes no clubbing, cyanosis or edema and Yes no calf tenderness Results Reviewed Results Reviewed: XR LUMBOSACRAL SPINE 03/28/23 CLINICAL INFORMATION: Chronic low back pain FINDINGS: There is normal lumbar lordosis. The vertebral heights, alignment and disc heights are normal. No visible acute fracture, dislocation or subluxation seen. No bony erosive changes there is mild spondylosis lumbar spine. The paravertebral soft tissues are normal. IMPRESSION: Mild spondylosis. No visible acute fracture, dislocation or subluxation seen. MR SPINE LUMBAR without CONTRAST 10/30/23 INDICATION: Worsening low back pain with paresthesia of bilateral legs, more on the right side than left. Additional history: Hypertension. Diabetes. TECHNIQUE: Unenhanced multiplanar, multisequence MR imaging of the lumbar spine. COMPARISON: None available. FINDINGS: There is normal alignment of the lumbar vertebral bodies. The vertebral bodies are of normal height. Benign vertebral body hemangiomas L2 to and L4. The intervertebral disc space heights are maintained. Mild lower lumbar facet arthrosis. No acute process of the posterior elements. Conus and cauda equina of normal appearance. Conus tip L1. No acute paraspinal abnormality identified. No findings of sacral fracture. Examination through the L1-L2 intervertebral level revealing small posterior disc osteophyte. No significant central stenosis or foraminal narrowing. Examination through the L2-L3 intervertebral level without central stenosis or foraminal narrowing. Examination through the L3-L4 intervertebral level without central stenosis. There is no significant RIGHT foraminal narrowing. There is a LEFT posterior lateral disc osteophyte encroaching on the LEFT lateral recess and resulting in a mild to moderate LEFT foraminal narrowing. Examination through the L4-L5 intervertebral level revealing mild facet arthrosis. Small posterior disc osteophyte. No significant central stenosis. No significant RIGHT foraminal narrowing. Mild LEFT foraminal narrowing. Examination through the L5-S1 intervertebral level revealing mild facet arthrosis without central stenosis or foraminal narrowing. Impression: Mild spondylotic changes and mild lower lumbar facet arthrosis. No findings of fracture or listhesis. No findings to suggest acute disc protrusion. L3-L4 intervertebral level without central stenosis. There is no significant RIGHT foraminal narrowing. There is a LEFT posterior lateral disc osteophyte encroaching on the LEFT lateral recess and resulting in a mild to moderate LEFT foraminal narrowing. L4-L5 intervertebral level revealing mild facet arthrosis. Small posterior disc osteophyte. No significant central stenosis. No significant RIGHT foraminal narrowing. Mild LEFT foraminal narrowing. Assessment & Plan Assessment & Plan (1) Lumbar spondylosis: Code(s): M47.816 - Spondylosis without myelopathy or radiculopathy, lumbar region Category: Medical (2) Lumbar degenerative disc disease: Code(s): M51.36 - Other intervertebral disc degeneration, lumbar region Category: Medical (3) Discogenic low back pain: Code(s): M51.360 - Other intervertebral disc degeneration, lumbar region with discogenic back pain only Category: Medical (4) Degeneration of intervertebral disc of lumbar region with osteophyte of lumbar vertebra: Code(s): M51.369 - Other intervertebral disc degeneration, lumbar region without mention of lumbar back pain or lower extremity pain; M25.78 - Osteophyte, vertebrae Category: Medical (5) Chronic low back pain: Code(s): M54.50 - Low back pain, unspecified; G89.29 - Other chronic pain Category: Medical (6) Muscle spasm of back: Code(s): M62.830 - Muscle spasm of back Category: Medical Plan Patient is status post diagnostic bilateral lumbar medial branch blocks with no pain relief and significant aggravation of her axial and discogenic low back pain. We will proceed with lumbar spine MRI to assess for neural integrity and compression, given significant disc osteophytes noted on fluoroscopy imaging. Patient initiated PT but was not able to continue due to significant low back pain. Continue Ibuprofen prn, lidocaine patches, gabapentin and duloxetine. Patient also takes tramadol prescribed by her PCP which she reports allows her to be less symptomatic and more functional. All questions and concerns have been answered and the patient agreed with the plan. Follow up MRI results and sooner as needed. Orders: Orders 2 MR lumbar spine wo con Today F40.240 - Claustrophobia, M25.78 - Osteophyte, vertebrae, M47.816 - Spondylosis without myelopathy or radiculopathy, lumbar region, M51.36 - Other intervertebral disc degeneration, lumbar region, M51.360 - Other intervertebral disc degeneration, lumbar region with discogenic back pain only, M51.369 - Other intervertebral disc degeneration, lumbar region without mention of lumbar back pain or lower extremity pain Coding Level of Care Code Est Pt Level 4 (95575) Complex EM visit Add On G2211 Diagnoses Lumbar spondylosis M47.816 Lumbar degenerative disc disease M51.36 Discogenic low back pain M51.360 Degeneration of intervertebral disc of lumbar region with osteophyte of lumbar vertebra M51.369; M25.78 Chronic low back pain M54.50; G89.29 Muscle spasm of back M62.830
[2024-08-27 10:47] VITALS: BP 139/65; PULSE 91; O2SAT 97; BMI 41.6
== END 2024-08-27 11:06 | disposition home or self-care (01) ==
PROVIDERS: PCP Internal Medicine; Visit Provider Nurse Practitioner Family
DX: M47.816 Spondylosis without myelopathy or radiculopathy, lumbar region (principal); M51.369 Other intervertebral disc degeneration, lumbar region without mention of lumbar back pain or lower extremity pain; M51.360 Other intervertebral disc degeneration, lumbar region with discogenic back pain only; M25.78 Osteophyte, vertebrae; M54.50 Low back pain, unspecified; G89.29 Other chronic pain; M62.830 Muscle spasm of back
CPT/HCPCS: 99214

== ENCOUNTER → 2024-08-27 10:41 | Outpatient (BNVA) | payer OTHER, SELFPAY | PROVIDERS: PCP Internal Medicine; Visit Provider Nurse Practitioner Family ==

== ENCOUNTER 2024-09-20 15:00 | Outpatient (REF) | payer OTHER, SELFPAY ==
--- NOTE | ~2024-09-20 | MM_ITS ---
EXAMINATION: MM SCREENING DIGITAL BREAST TOMOSYNTHESIS, BILATERAL CLINICAL INFORMATION: Screening. Asymptomatic. COMPARISON: Mammography: Comparison is made with available priors TECHNIQUE: Digital breast mammography with tomosynthesis is performed in both the craniocaudal and mediolateral oblique views along with computer-aided detection (CAD). FINDINGS: There are scattered areas of fibroglandular density (ACR BI-RADS breast composition Category b). There are no significant masses, abnormal calcifications, or other abnormalities. MM/MM tomosynthesis screening BI IMPRESSION: No mammographic evidence of malignancy. ASSESSMENT: BI-RADS BI-RADS 1 - Negative RECOMMENDATION: Routine annual mammography screening. 1 year F/U This examination should not preclude the clinical evaluation of a suspicious palpable abnormality. This patient's information was entered into a reminder system with a target due date for their next mammogram. Electronically signed by: Laury Monson DO 10/01/2024 09:13 AM FAM[facility]
== END 2024-09-20 15:01 | disposition home or self-care (01) ==
LOC: HO.MAMMO 15:00
PROVIDERS: PCP Internal Medicine; Visit Provider Internal Medicine
DX: Z12.31 Encounter for screening mammogram for malignant neoplasm of breast (principal)
CPT/HCPCS: 77063; 77067

== ENCOUNTER → 2024-09-20 15:45 | Outpatient (BNV) | payer OTHER, SELFPAY | PROVIDERS: PCP Internal Medicine; Visit Provider Internal Medicine | DX: Z12.31 Encounter for screening mammogram for malignant neoplasm of breast (principal) | CPT/HCPCS: 77063; 77067 ==

== ENCOUNTER 2024-10-24 11:03 | Emergency (ER) | payer OTHER, SELFPAY ==
--- NOTE | ~2024-10-24 | CT_ITS ---
EXAMINATION: CT HIP WITHOUT CONTRAST, LEFT CLINICAL INFORMATION: Severe pain, possible recent dislocation COMPARISON: None available. TECHNIQUE: Multidetector volumetric imaging was obtained through the left hip without contrast material. Multiplanar reformatted images were submitted in coronal and sagittal planes. This CT examination was performed using dose optimization techniques as appropriate, variously including the following: *Automated exposure control *Adjustment of mA and/or kV according to patient size (this includes techniques or standardized protocols for targeted exams where dose is matched to indication/reason for exam; i.e. extremities or head) *Use of iterative reconstruction technique DLP: 419 mGy-cm FINDINGS: Anatomic articulation of the left hip joint. Mild-moderate left hip arthritis. No visible acute fracture or dislocation. Greater trochanteric spurring. No pubic rami fracture seen. Symphysis pubis is intact. Mild symphysis pubis degeneration. The left SI joint appears intact, with mild arthritis. No acute fracture is seen in the partially visualized sacrum. No groin lymphadenopathy. No large hip joint effusion is seen, evaluation limited on CT. No measurable muscle tear is seen, evaluation limited by CT. No significant free fluid in the pelvis. Urinary bladder appears unremarkable. No fluid collection in the subcutaneous tissues. CT/CT hip LT wo IV con IMPRESSION: 1. Mild-moderate left hip arthritis. 2. No acute fracture, dislocation or malalignment is identified. Cause of the patient's symptoms has not been determined by CT. If there is persistent symptoms, clinical concern for radiographically occult osseous or soft tissue injury, further evaluation with MRI can be obtained. 3. Additional findings and details as above. Electronically signed by: Naveed Art MD 10/24/2024 05:06 PM [facility]
--- NOTE | ~2024-10-24 | XR_ITS ---
EXAMINATION: XR HIP, LEFT CLINICAL INFORMATION: trauma COMPARISON: None available. TECHNIQUE: Two views of the left hip. FINDINGS: No acute cortical disruption or malalignment. Degenerative changes in the greater tuberosity. No lytic or blastic lesions. Multilevel lower lumbar spondylosis. Sclerosis and the sacroiliac joints. Spina bifida occulta, S1, congenital. Punctate calcifications in the lower pelvis. XR/XR hip LT w PEL1V IMPRESSION: No acute fracture or dislocation. Electronically signed by: Richard May MD 10/24/2024 11:58 AM [facility]
[2024-10-24 11:15] VITALS: BP 141/69; PULSE 90; RESP 18; TEMP 36.5; O2SAT 97; BMI 42.1
--- NOTE | 2024-10-24 11:19 | ED_ITS ---
HPI - Extremity Injury (Lower) General Chief Complaint: Extremity Injury, Lower Stated Complaint: l upper leg pop out and back in Time Seen by Provider: 10/24/24 11:46 Source: patient Mode of arrival: ambulatory Limitations: no limitations History of Present Illness ED Provider: Mary Arizmendi PA-C HPI Narrative: 59 yo female presenting for evaluation of left hip pain that started this morning when she was in the shower and heard a pop. She states she saw and felt the bone ?pop out and then pop back in? when she bent over in the shower. She reports pain in the left lateral hip that has been worsening since the event. She has difficulty bearing weight due to pain. No numbness or tingling down the leg. No back pain. No history of hip pain or injury in the past. Onset (ago): hour(s) Place: home Severity: severe Relieving factors: nothing Exacerbating factors: weight bearing, movement and palpation Associated symptoms: able to partially bear weight Other symptoms: none Related Data Home Medications ?Medication ?Instructions ?Recorded ?Confirmed lisinopril 5 mg tablet 5 mg PO DAILY 09/29/20 08/01/24 loratadine 10 mg tablet (Allergy 10 mg PO DAILY 09/29/20 08/01/24 Relief (loratadine)) aspirin 81 mg tablet,delayed 81 mg PO DAILY 12/02/20 08/01/24 release gabapentin 600 mg tablet 600 mg PO BEDTIME 02/18/21 08/01/24 blood sugar diagnostic (FreeStyle #10 ea 11/16/21 08/01/24 Lite Strips) lancets 33 gauge (TRUEplus Lancets) #100 ea 11/16/21 08/01/24 tramadol 50 mg tablet 50 mg PO DAILY 10/13/22 08/01/24 furosemide 20 mg tablet (Lasix) 20 mg PO Q OTHER DAY 02/23/24 08/01/24 Previous Rx's ?Medication ?Instructions ?Recorded simethicone 125 mg chewable tablet 125 mg PO QID PRN abdominal 09/29/20 (Gas Relief (simethicone)) distention #120 tabs sucralfate 1 gram tablet 1 g PO DAILY #30 tabs 11/25/20 omeprazole 20 mg capsule,delayed 20 mg PO DAILY #30 caps 08/17/21 release famotidine 20 mg tablet (Pepcid) 20 mg PO BEDTIME #30 tabs 10/20/21 rosuvastatin 40 mg tablet 40 mg PO DAILY #30 tabs 11/16/21 insulin glargine 100 unit/mL (3 40 unit (0.4 mL) subcut QPM #15 mL 09/20/22 mL) subcutaneous pen (Lantus Solostar U-100 Insulin) liraglutide 0.6 mg/0.1 mL (18 mg/3 1.8 mg (0.3 mL) subcut DAILY #27 mL 09/20/22 mL) subcutaneous pen injector (Victoza 3-Jose) metoprolol succinate 50 mg 50 mg PO DAILY #30 tabs 12/29/23 tablet,extended release 24 hr nitroglycerin 0.4 mg sublingual 0.4 mg sublingual Q5M PRN chest 12/29/23 tablet pain #25 tabs duloxetine 20 mg capsule,delayed 20 mg PO BID pain 30 days #60 caps 06/21/24 release (Cymbalta) alirocumab 75 mg/mL subcutaneous 75 mg subcut Q2W #2 mL 08/01/24 pen injector (Praluent Pen) lorazepam 1 mg tablet 1 mg PO ONCE anxiety #2 tabs 08/29/24 cyclobenzaprine 10 mg tablet 10 mg PO TID PRN muscle spasm #10 10/24/24 tabs ibuprofen 600 mg tablet 600 mg PO Q8H PRN pain #10 tabs 10/24/24 Allergies Allergy/AdvReac Type Severity Reaction Status Date / Time erythromycin base Allergy Severe ANAPHYLAXIS Verified 10/24/24 11:15 [Erythromycin Base] oxycodone [From Percocet] Allergy Mild Nausea Verified 10/24/24 11:15 fluconazole [Diflucan] Allergy Unknown Abdominal Verified 10/24/24 11:15 Pain silver AdvReac Unknown rash/blisters Verified 10/24/24 11:15 [From Tegaderm AG Mesh] to skin Review of Systems 2 Review of Systems: Yes all other systems are reviewed and are negative PMFSH Past Medical History Medical History Obesity due to excess calories Hyperlipidemia LDL goal <70 Type 2 diabetes mellitus with diabetic polyneuropathy Obesity Dyspnea on exertion Other and unspecified hyperlipidemia Essential hypertension Type 2 diabetes mellitus with unspecified complications Atherosclerotic cardiovascular disease Hypercholesteremia Diabetes mellitus TIA (transient ischemic attack) Gastroesophageal reflux disease Surgical History H/O cardiac catheterization Hx of tubal ligation Hx of cholecystectomy Family History Family History Father Hx of diabetes insipidus Hx of cardiac asthma Mother Hx of cervical cancer Hx of heat stroke Social History Social History Alcohol intake: never Patient Tobacco Use Status: Never used Tobacco Substance Use Type: Marijuana Advance Directives: No Do you have a plan to hurt others: No Plan Current occupational status: employed 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 Oriented X3. No acute distress. HEENT: normal external inspection Neck: Normal inspection. CVS: Normal heart rate and rhythm. Pulses normal. Respiratory: No respiratory distress. Breath sounds normal. Abdomen: Obese. Soft and nontender. +BS x4 Skin: Skin warm and dry. Normal skin color. Normal skin turgor. No rashes. Extremities: No lower extremity edema. No joint swelling. Left lateral hip with tenderness. Pain with flexion of the hip. No external rotation or shortening of the leg. Normal passive range of motion of the left knee and ankle. Neuro/psych: Oriented X 3. No motor deficit. No sensory deficit. CN II-XII intact. Normal speech and cognition. antalgic gait Course Course Course Narrative: This is a rapid medical exam performed by Africa Nath PA-C. Patient is a 59-year-old female with a history of known degenerative disc disease, arthritis, chronic back pain, morbid obesity, hypertension, diabetes, who presents with acute left hip pain. Patient states she was in the shower, she felt a ?pop?, she states the bone was ?popping out of her side?. Patient did not sustain a fall. Patient is ambulatory, however walks with an antalgic gait, somewhat limping. There was no deformity on exam at this time. We will screen basic labs in the event she requires a CT scan, obtaining films of the hip and pelvis. The patient is hemodynamically stable and can return to the waiting room pending her full medical assessment. Medications Administered Discontinued Medications Generic Name Dose Route Start Last Admin Trade Name Dylan PRN Reason Stop Dose Admin Acetaminophen 975 mg 10/24/24 12:15 10/24/24 12:38 Acetaminophen 325 Mg Tablet PO 10/24/24 12:16 975 mg ONCE ONE Administration Ketorolac Tromethamine 30 mg 10/24/24 12:15 10/24/24 12:37 Ketorolac Tromethamine 30 Mg/Ml Vial IM 10/24/24 12:16 30 mg ONCE ONE Administration Medical Decision Making Medical Decision Making [facility] Narrative: 59-year-old morbidly obese female presents to the ER for evaluation of left hip pain after she ?felt it pop in and out? while in the shower this morning. No falls or trauma. She is able to range the hip passively and actively but has some discomfort with this. She has a obvious limp with walking. X-ray did not show acute fracture. Given her tenderness on examination CT scan was performed. This shows [id number] arthritis but no evidence of avulsion or any other type of fracture. Will prescribe muscle relaxers and NSAIDs. Will have her follow up with Orthopedics and her PCP. She is walking with a limp but has a steady gait. Stable for discharge home. Declining crutches. Differential Diagnosis Differential Diagnoses: The differential diagnosis associated with the presentation includes Hip dislocation, hip strain, hip sprain, avulsion fracture, osteoarthritis, inflammatory arthritis, avascular necrosis, bursitis Lab Data [facility] Lab Attestation statement: I reviewed the patient's lab results. 10/24/24 11:44 10/24/24 11:44 Labs: Lab Results 10/24/24 Range/Units 11:44 WBC 6.3 (4.8-10.8) X10*3/uL RBC 4.52 (4.20-5.50) X10*6/uL Hgb 13.1 (12.0-16.0) g/dl Hct 38.8 (37.0-47.0) % MCV 85.8 (80.0-98.0) fL MCH 29.0 (27.0-33.0) pg MCHC 33.8 (31.0-35.0) g/dl RDW 12.8 (11.0-16.0) % Plt Count 250 (160-400) X10*3/uL MPV 10.1 (9.4-12.3) fL Immature Gran % (Auto) 0.2 (0.0-0.4) % Neut % (Auto) 71.1 (45-73) % Lymph % (Auto) 21.6 (20-40) % Brewster % (Auto) 5.2 (2-11) % Eos % (Auto) 1.3 (0-4) % Baso % (Auto) 0.6 (0-2) % Lymph # (Auto) 1.4 (1.2-4.9) X10*3/uL Brewster # (Auto) 0.3 (0.1-1.2) X10*3/uL Eos # (Auto) 0.1 (0.0-0.4) X10*3/uL Baso # (Auto) 0.0 (0.0-0.2) X10*3/uL Abs Immat Gran (auto) 0.01 (0.00-0.03) X10*3/uL Absolute Neuts (auto) 4.5 (2.0-8.3) x10*3/uL Absolute Nucleated RBC 0.000 (0.0-0.012) X10*3/uL Nucleated RBC % (auto) 0.0 (0.0-0.2) /100WBC Independent Interpretation I performed an independent interpretation of an: Plain X-Ray and CT Scan Interpretation: X-ray without hip fracture CT scan without acute fracture or dislocation Radiology Impression Discussion of test interpretation with radiology: I have reviewed the radiologist's reading. Radiologist Impression: XR HIP, LEFT CLINICAL INFORMATION: trauma COMPARISON: None available. TECHNIQUE: Two views of the left hip. FINDINGS: No acute cortical disruption or malalignment. Degenerative changes in the greater tuberosity. No lytic or blastic lesions. Multilevel lower lumbar spondylosis. Sclerosis and the sacroiliac joints. Spina bifida occulta, S1, congenital. Punctate calcifications in the lower pelvis. IMPRESSION: No acute fracture or dislocation. External Record Review External record reviewed: Outpatient record and Prior outpatient labs Prescription Management I considered prescription management with: Pain Medication Chronic Conditions Patient?s care impacted by: Other (obesity ) Critical Care Time Critical Care Time Critical Care Time: No Discharge Plan Discharge Clinical Impression: Acute hip pain Qualifiers: Laterality: left Qualified Code(s): M25.552 - Pain in left hip Patient Disposition: Home, Self-Care Instructions: Hip Pain (ED) Additional Instructions: your imaging today showed no acute fractures take the prescribed muscle relaxers and antiinflammatories as directed rest and ice your hip you can bear weight as tolerated, if the pain is too severe, use crutches as needed follow up with orthopedics for further evaluation and treatment If you develop new or worsening symptoms call 911 or come back to the ER for further evaluation. CT SCAN IMPRESSION: 1. Mild-moderate left hip arthritis. 2. No acute fracture, dislocation or malalignment is identified. Cause of the patient's symptoms has not been determined by CT. If there is persistent symptoms, clinical concern for radiographically occult osseous or soft tissue injury, further evaluation with MRI can be obtained. 3. Additional findings and details as above. Prescriptions: New cyclobenzaprine 10 mg tablet 10 mg PO TID PRN (Reason: muscle spasm) Qty: 10 0RF ibuprofen 600 mg tablet 600 mg PO Q8H PRN (Reason: pain) Qty: 10 0RF No Action omeprazole 20 mg capsule,delayed release(DR/EC) 20 mg PO DAILY Qty: 30 0RF famotidine [Pepcid] 20 mg tablet 20 mg PO BEDTIME Qty: 30 3RF Victoza 3-Jose 0.6 mg/0.1 mL (18 mg/3 mL) pen injector 1.8 mg subcut DAILY Qty: 27 0RF Lantus Solostar U-100 Insulin 100 unit/mL (3 mL) insulin pen 40 unit subcut QPM Qty: 15 1RF lorazepam 1 mg tablet 1 mg PO ONCE Qty: 2 0RF Rx Instructions: Take one tablet 30-60 min prior to MRI test. lisinopril 5 mg tablet 5 mg PO DAILY loratadine [Allergy Relief (loratadine)] 10 mg tablet 10 mg PO DAILY simethicone [Gas Relief (simethicone)] 125 mg tablet,chewable 125 mg PO QID PRN (Reason: abdominal distention) Qty: 120 2RF aspirin 81 mg tablet,delayed release (DR/EC) 81 mg PO DAILY (DME) FreeStyle Lite Strips Strip See Rx Instructions .ROUTE .MEDSUPPLY Qty: 10 Rx Instructions: As directed once a day (DME) lancets [TRUEplus Lancets] 33 gauge misc See Rx Instructions topical .MEDSUPPLY Qty: 100 Rx Instructions: As directed rosuvastatin 40 mg tablet 40 mg PO DAILY Qty: 30 6RF sucralfate 1 gram tablet 1 g PO DAILY Qty: 30 2RF gabapentin 600 mg tablet 600 mg PO BEDTIME tramadol 50 mg tablet 50 mg PO DAILY furosemide [Lasix] 20 mg tablet 20 mg PO Q OTHER DAY Praluent Pen 75 mg/mL pen injector 75 mg subcut Q2W Qty: 2 5RF Rx Instructions: inject into abdomen, thigh, or upper arm (deltoid muscle); rotate sites metoprolol succinate 50 mg tablet extended release 24 hr 50 mg PO DAILY Qty: 30 5RF nitroglycerin 0.4 mg tablet, sublingual 0.4 mg sublingual Q5M PRN (Reason: chest pain) Qty: 25 1RF Rx Instructions: do not exceed 3 doses per episode duloxetine [Cymbalta] 20 mg capsule,delayed release(DR/EC) 20 mg PO BID 30 Days Qty: 60 0RF Referrals: [facility] [Provider Group] (hip arthritis ) Angi Carrasco MD [Primary Care Provider] - Stand Alone Forms: Work/School Release Print Language: Moroccan
[2024-10-24 11:51] LABS: MANUAL DIFF FLAG NO
[2024-10-24 11:54] LABS: Basophils Percent Auto 0.6 % (0-2); Eosinophils Absolute Auto 0.1 X10*3/uL (0.0-0.4); Eosinophils Percent Auto 1.3 % (0-4); Hematocrit 38.8 % (37.0-47.0); Hemoglobin 13.1 g/dl (12.0-16.0); Imm Gran Abs Auto 0.01 X10*3/uL (0.00-0.03); Imm Gran Pct Auto 0.2 % (0.0-0.4); Lymphocytes Absolute Auto 1.4 X10*3/uL (1.2-4.9); Lymphocytes Percent Auto 21.6 % (20-40); Mean Corpuscular HGB Conc 33.8 g/dl (31.0-35.0); Mean Corpuscular Volume 85.8 fL (80.0-98.0); Mean Platelet Volume 10.1 fL (9.4-12.3); Monocytes Absolute Auto 0.3 X10*3/uL (0.1-1.2); Monocytes Percent Auto 5.2 % (2-11); Neutrophils Absolute Auto 4.5 x10*3/uL (2.0-8.3); Neutrophils Percent Auto 71.1 % (45-73); Platelet Count 250 X10*3/uL (160-400); Red Blood Count 4.52 X10*6/uL (4.20-5.50); Red Cell Distribution Width 12.8 % (11.0-16.0); White Blood Count 6.3 X10*3/uL (4.8-10.8)
--- NOTE | 2024-10-24 12:17 | MHC.EDTECH ---
per provider - no need to recollect green gel.
[2024-10-24] MEDS: Ketorolac Tromethamine 30 MG/ML VIAL IM (12:37)
[2024-10-24] MEDS: Acetaminophen 325 MG TABLET 975 MG PO (12:38)
--- NOTE | 2024-10-24 18:13 | MHC.EDTECH ---
Patient declined crutches. Rn an provider aware.
[2024-10-24 18:49] VITALS: BP 141/69; PULSE 90; RESP 18; TEMP 36.5; O2SAT 97
== END 2024-10-24 18:50 | disposition home or self-care (01) ==
PROVIDERS: Physician Assistant Medical; Emergency Provider Student in an Organized Health Care Education/Training Program; PCP Internal Medicine
DX: M25.552 Pain in left hip (principal); E11.9 Type 2 diabetes mellitus without complications; I10 Essential (primary) hypertension; E78.5 Hyperlipidemia, unspecified; F12.90 Cannabis use, unspecified, uncomplicated; E66.9 Obesity, unspecified; Z68.41 Body mass index [BMI] 40.0-44.9, adult; Z79.4 Long term (current) use of insulin; Z79.82 Long term (current) use of aspirin; Z79.02 Long term (current) use of antithrombotics/antiplatelets; Z79.899 Other long term (current) drug therapy
CPT/HCPCS: 36415; 73502; 73700; 80048; 83735; 85025; 96372; 99283; 99284; J1885

== ENCOUNTER → 2024-10-24 11:18 | Outpatient (BNV) | payer OTHER, SELFPAY | PROVIDERS: Emergency Provider Student in an Organized Health Care Education/Training Program; PCP Internal Medicine; Visit Provider Radiology Diagnostic Radiology | DX: Q76.0 Spina bifida occulta (principal); R93.89 Abnormal findings on diagnostic imaging of other specified body structures | CPT/HCPCS: 73502 ==

== ENCOUNTER 2024-11-27 13:54 | Outpatient (AMB) | payer OTHER, SELFPAY ==
--- NOTE | 2024-11-27 14:02 | A.OFFVIS_ITS ---
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 Patient reports while in the shower she moved her right leg and picked up a shower chair and heard a pop. States she felt the bone pop out, heard a crack and then her hip popped back in. She presented to [facility] [place] [facility] that same day on 10/24/24 and followed up with her PCP. Currently she has constant pain that is located at the lateral aspect of hip and an ache in her buttocks area. Finds some relief at times with taking prescribed gabapentin, tramadol, and flexeril. Hx of neuropathy. No previous tx Allergies erythromycin base [Erythromycin Base] Allergy (Severe, Verified 11/27/24 14:09) ANAPHYLAXIS oxycodone [From Percocet] Allergy (Mild, Verified 11/27/24 14:09) Nausea fluconazole [Diflucan] Allergy (Unknown, Verified 11/27/24 14:09) Abdominal Pain silver [From Tegaderm AG Mesh] Adverse Reaction (Unknown, Verified 11/27/24 14:09) rash/blisters to skin Medication List - Last Reconciled 11/27/24 by Gerson Amaral PA-C aspirin 81 mg PO DAILY blood sugar diagnostic (FreeStyle Lite Strips) As directed once a day duloxetine (Cymbalta) 20 mg PO BID 30 days famotidine (Pepcid) 20 mg PO BEDTIME furosemide (Lasix) 20 mg PO Q OTHER DAY gabapentin 600 mg PO BEDTIME ibuprofen 600 mg PO Q8H PRN insulin glargine (Lantus Solostar U-100 Insulin) 40 units (0.4 mL) subcut QPM lancets (TRUEplus Lancets) As directed lisinopril 5 mg PO DAILY loratadine (Allergy Relief (loratadine)) 10 mg PO DAILY lorazepam 1 mg PO ONCE metoprolol succinate ER 50 mg PO DAILY nitroglycerin 0.4 mg sublingual Q5M PRN omeprazole 20 mg PO DAILY rosuvastatin 40 mg PO DAILY semaglutide (Ozempic) mg subcut simethicone (Gas Relief (simethicone)) 125 mg PO QID PRN sucralfate 1 g PO DAILY tramadol 50 mg PO DAILY HPI HPI [employer]- ED f/u Left hip pain: Details: 59-year-old female presents to the office today for left hip pain. She states back in October she twisted in the tub and she felt like her left hip dislocated. She did not fall. She did need to hold onto the handrail to steady herself. She states she has pain in the groin and along the lateral aspect of the hip. Over time it has been slowly improving but she does have times where it is aggravating. [facility] Medical History Obesity due to excess calories Hyperlipidemia LDL goal <70 Type 2 diabetes mellitus with diabetic polyneuropathy Obesity Dyspnea on exertion Other and unspecified hyperlipidemia Essential hypertension Type 2 diabetes mellitus with unspecified complications Atherosclerotic cardiovascular disease Hypercholesteremia Diabetes mellitus TIA (transient ischemic attack) Gastroesophageal reflux disease Surgical History H/O cardiac catheterization Hx of tubal ligation Hx of cholecystectomy Family History Father Hx of diabetes insipidus Hx of cardiac asthma Mother Hx of cervical cancer Hx of heat stroke Social History Alcohol intake: never Patient Tobacco Use Status: Never used Tobacco Substance Use Type: Marijuana Current occupational status: employed 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 She has no pain with range of motion. She has mild discomfort with hip flexion. Mild tenderness over the greater troch. No pain with adduction or abduction. Neurovascularly intact. Results Reviewed Results Reviewed: X-rays and CT scan of the left hip obtained on 10/24 24- for any acute or chronic abnormalities. There is mild arthritis of the left hip. Assessment & Plan Assessment & Plan (1) Osteoarthritis of left hip: Code(s): M16.12 - Unilateral primary osteoarthritis, left hip Category: Medical (2) Trochanteric bursitis, left hip: Code(s): M70.62 - Trochanteric bursitis, left hip Category: Medical Plan We discussed options today which include physical therapy which she would like to hold off on at this time. I did give her a printout of some home exercises. I did offer her an intra-articular injection of the left hip which would be done at the hospital under fluoroscopy which she deferred. She will contact our office if symptoms persist or worsen otherwise follow-up as needed. Coding Level of Care Code New Pt Level 3 (33824) Complex EM visit Add On G2211 Diagnoses Osteoarthritis of left hip M16.12 Trochanteric bursitis, left hip M70.62
[2024-11-27 14:03] VITALS: BMI 41.9
== END 2024-11-27 14:33 | disposition home or self-care (01) ==
PROVIDERS: PCP Internal Medicine; Visit Provider Physician Assistant
DX: M16.12 Unilateral primary osteoarthritis, left hip (principal); M70.62 Trochanteric bursitis, left hip
CPT/HCPCS: 99203

== ENCOUNTER 2025-02-04 08:40 | Outpatient (AMB) | payer OTHER, SELFPAY ==
--- NOTE | 2025-02-04 08:45 | A.OFFVIS_ITS ---
Vital Signs 02/04/25 08:47 Height 5 ft 2 in Weight 214 lb 11.684 oz BMI 39.3 BP 134/64 Blood Pressure Location Lt brachial Position Sitting Pulse 79 Pulse Source Monitor Intake Visit Reasons: 6 mth fu Surveillance Observer Required: No Accompanied by: Self / Same As Patient Allergies erythromycin base [Erythromycin Base] Allergy (Severe, Verified 11/27/24 14:09) ANAPHYLAXIS oxycodone [From Percocet] Allergy (Mild, Verified 11/27/24 14:09) Nausea fluconazole [Diflucan] Allergy (Unknown, Verified 11/27/24 14:09) Abdominal Pain silver [From Tegaderm AG Mesh] Adverse Reaction (Unknown, Verified 11/27/24 14:09) rash/blisters to skin Medication List - Last Reconciled 02/04/25 by Mitchell Graves MD aspirin 81 mg PO DAILY blood sugar diagnostic (FreeStyle Lite Strips) As directed once a day duloxetine (Cymbalta) 20 mg PO BID 30 days famotidine (Pepcid) 20 mg PO BEDTIME furosemide (Lasix) 20 mg PO Q OTHER DAY gabapentin 600 mg PO BEDTIME ibuprofen 600 mg PO Q8H PRN insulin glargine (Lantus Solostar U-100 Insulin) 40 units (0.4 mL) subcut QPM lancets (TRUEplus Lancets) As directed lisinopril 40 mg PO DAILY loratadine (Allergy Relief (loratadine)) 10 mg PO DAILY lorazepam 1 mg PO ONCE metoprolol succinate ER 50 mg PO DAILY nitroglycerin 0.4 mg sublingual Q5M PRN omeprazole 20 mg PO DAILY rosuvastatin 40 mg PO DAILY semaglutide (Ozempic) mg subcut simethicone (Gas Relief (simethicone)) 125 mg PO QID PRN sucralfate 1 g PO DAILY tramadol 50 mg PO DAILY HPI Comments Details: Brynn returns for follow-up regarding coronary disease. She has multiple vascular risk factors including obesity, type 2 diabetes, hypertension as well as dyslipidemia. Due to chest pain complaints, she underwent another cardiac catheterization in 2023, but no new findings. She reports an increase in lisinopril dosage due to high blood pressure, although there appears to be an issue with the pharmacy processing of her cholesterol medication despite approval notifications. She denies recent chest pains but acknowledges occasional mild discomfort and exertional dyspnea, usual for her, associated with ongoing efforts to lose weight. Currently prescribed Ozempic for weight loss, she has lost 10 to 15 pounds, leading to improved overall health. Her diabetes control is stable, with a reported Hemoglobin A1C of 6.4, while utilizing metoprolol and baby aspirin as part of her treatment plan. The complication with her cholesterol medication persists, warranting further resolution. [facility] Medical History Obesity due to excess calories Hyperlipidemia LDL goal <70 Type 2 diabetes mellitus with diabetic polyneuropathy Obesity Dyspnea on exertion Other and unspecified hyperlipidemia Essential hypertension Type 2 diabetes mellitus with unspecified complications Atherosclerotic cardiovascular disease Hypercholesteremia Diabetes mellitus TIA (transient ischemic attack) Gastroesophageal reflux disease Surgical History H/O cardiac catheterization Hx of tubal ligation Hx of cholecystectomy Family History Father Hx of diabetes insipidus Hx of cardiac asthma Mother Hx of cervical cancer Hx of heat stroke Social History Alcohol intake: never Patient Tobacco Use Status: Never used Tobacco Substance Use Type: Marijuana Current occupational status: employed 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 Review of Systems Const Denies chills, Denies fatigue, Denies fever(s), Denies frequent falls, Denies weakness, Denies weight gain and Denies weight loss ENT Denies dizziness Card Denies chest pain, Denies leg edema, Denies lightheadedness, Denies palpitations, Denies dyspnea and Denies dyspnea on exertion Resp Denies cough, Denies dyspnea and Denies dyspnea on exertion GI Denies hematochezia Musc Denies abnormal gait, Denies muscle weakness, Denies numbness, Denies radiating pain into limb and Denies tingling Neuro Denies abnormal gait, Denies dizziness, Denies frequent falls, Denies numbness, Denies tingling and Denies weakness Endo Denies fatigue and Denies palpitations Physical Exam Vital Signs: Last Vital Signs Pulse 79 02/04/25 08:47 BP 134/64 02/04/25 08:47 BMI result Body Mass Index 39.3 Const General: comfortable and no acute distress Orientation/consciousness: patient oriented x3 HEENT Other: Unremarkable Head: Yes normal to inspection Neck Neck: Yes normal visual inspection Chest Chest palpation & inspection: normal inspection of the chest Resp Auscultation: clear to auscultation bilaterally Cardio Palpation: normal PMI Heart sounds: S1 normal heart sound present, S2 normal heart sound present, no gallops, no murmurs and no rubs GI Palpation (GI): Soft to palpation Back/Spine/Pelvis Other: unremarkable Skin General skin exam: no rashes or lesions noted Neuro General: patient oriented x3 Extrem General: Yes normal to inspection Psych Mental Status: mental status grossly normal Office Procedures EKG Details: EKG with underlying sinus rhythm at 79/Min; cannot exclude old anterior infarct but could be from body habitus; low-voltage complexes; [place]. [id number]-[id number], Complete Assessment & Plan Assessment & Plan (1) Atherosclerotic cardiovascular disease: Code(s): I25.10 - Atherosclerotic heart disease of [place] coronary artery without angina pectoris Category: Medical Plan: Cardiac [id number] LAD with 30-40% stenosis, similar to prior study from 2020; otherwise no significant findings. Aggressive risk factor modification including weight loss, management of diabetes and other risk factors. She remains on baby aspirin. (2) Type 2 diabetes mellitus with unspecified complications: Code(s): E11.8 - Type 2 diabetes mellitus with unspecified complications Category: Medical Plan: Per patient, last hemoglobin A1c is 6.4%-done through her PCP. (3) Essential hypertension: Code(s): I10 - Essential (primary) hypertension Category: Medical Plan: Stable. (4) Other and unspecified hyperlipidemia: Code(s): E78.5 - Hyperlipidemia, unspecified Category: Medical Plan: Praluent was approved last year but patient states that she never got the medication. We will need to follow up on this. She remains on statins. (5) Morbid obesity: Code(s): E66.01 - Morbid (severe) obesity due to excess calories Category: Medical Plan: She is beginning to lose some weight with Ozempic. Plan I discussed with the patient her elevated blood pressure and subsequent lisinopril dosage adjustment, alongside the unresolved pharmacy issue with cholesterol medication. We reviewed the efficacy of Ozempic for weight loss, achieving a notable decrease in appetite and reduction in weight. I emphasized the importance of continuous monitoring of her cardiovascular health and adherence to prescribed medications. Coordination with her primary care doctor, will address ongoing care consistency, especially concerning her cholesterol medication. Her A1C level of 6.4 indicates satisfactory diabetes control, which supports the decision to maintain her current diabetes management approach. We agreed upon the need for ongoing communication to facilitate quick resolution of the pharmacy issue, with an understanding to conduct future lab work promptly, based upon possible medication changes. Patient Instructions: - Monitor your blood pressure regularly and report any significant changes. - Continue taking lisinopril, metoprolol, Ozempic, and baby aspirin as prescribed. - Follow up with PCP regarding any ongoing medication issues. - Report any episodes of chest pain or significant shortness of breath. - Maintain your current exercise routine focusing on walking and weight loss. - Notify our office if the pharmacy issue persists, or if you experience any new symptoms. - Plan to have your cholesterol levels and other related lab work checked once medication issues are resolved. Coding Level of Care Code Est Pt Level 4 (88289) Complex EM visit Add On G2211 Diagnoses Atherosclerotic cardiovascular disease I25.10 Type 2 diabetes mellitus with unspecified complications E11.8 Essential hypertension I10 Other and unspecified hyperlipidemia E78.5 Morbid obesity E66.01 CPT Codes EKG - CPT: 24759-[id number], Complete ([id number])
[2025-02-04 08:47] VITALS: BP 134/64; PULSE 79; BMI 39.3
--- OUTSIDE RECORDS SUMMARY | 2025-02-04 09:14 | XMS_ITS | Encounter Summary ---
Author Organization [employer] Address [address] [facility] 7t [place] [address] Care Team Providers Care Upholstery Auto Trimmer Name Role Phone Angi Carrasco MD Primary Care Provider [phone]- [phone] Reason for Visit * Reason Onset Date Comments Med Refill 05/22/2024 Encounter Details Date Type Department Care Team (Late st Contact Info) Description 05/22/2024 Telephone [facility] MEDICINE [address] [place] [address] Angi Carrasco MD 505 [facility] [place], [place] [id number] Med Refill Social History Tobacco Use Types Packs/Day Years Used Date Smoking Tobacco: Never Passive Smoke Exposure: Never Smokeless Tobacco: Never Depression Answer Date Recorded Patient Health Questionnaire-9 Score 0 03/28/2023 Housing Stability Answer Date Recorded What is your housing situation today? I have cicicande angulo 08/28/[address] you li ve. Do you have problems with any of the following? None of the above 08/28/2023 Food Insecurity Answer Date Recorded Within the past 12 months, y ou worried that your food would run out before you got money to buy more: Never True 08/28/2023 Within the past 12 months,th e food you bought just didn't last and you didn't have enough money to get more: Never True Transportation Answer Date Recorded In the past 12 months, has l ack of transportation kept you from medical appts, meetings, work or from getting things needed for daily living? No 08/28/2023 Utilities Answer Date Recorded In the past 12 months, has t he electric, gas, oil or water company threatened to shut off services in your home? No 08/28/2023 Depression Answer Date Recorded Patient Health Questionnaire-2 Score 0 03/28/2023 Comments Unknown Sex and Gender Information Value Date Recorded Sex Assigned at Female 09/12/2022 10:26 AM EDT Legal Sex Female 10:26 AM EDT Gender Identity Female 09/12/2022 10:26 AM EDT Sexual Orientation Straight 09/12/2022 10 :26 AM EDT documented as of this encounter Miscellaneous Notes * Telephone Encounter - Ajay Hall - 05/22/2024 2:25 PM EDT TC from pt requesting medication refill. Medications needing refill : Free style Test Strips and Lantus SoloStar 100 UNIT/ML pen To be sent to: [facility] - [place], [place] - [address] [place] [address] documented in this encounter Plan of Treatment Upcoming Encounters Date Type Department Care Team (Late st Contact Info) Description 02/12/2025 9:00 AM EDT Office Visit [facility] MED & PEDS [address] [place] [address] Angi Carrasco MD [address] [place] [address] 04/15/2025 9:00 AM EDT Clinical Support [facility] MED & PEDS [address] [place] [address] Lian Dhillon, YARELI [address] [place] [address] documented as of this encounter Visit Diagnoses Not on filedocumented in this encounter Additional Health Concerns Assessment Noted Time PHQ-9 Depression Total Score: 0 03/28/20 23 9:20 AM EDT documented as of this encounter Care Teams Upholstery Auto Trimmer Relationship Specialty Start Date End Date Angi Carrasco MD [address] [place] [address] PCP - General Internal Medicine 07/28/14 documented as of this encounter
--- OUTSIDE RECORDS SUMMARY | 2025-02-04 09:14 | XMS_ITS | Encounter Summary ---
Author Organization [employer] Address [address] [place] [address] 7[address] [place] [address] Care Team Providers Care Laborer Concrete Paving Name Role Phone Angi Carrasco MD Primary Care Provider Encounter Details Date Type Department Care Team (Late st Contact Info) Description 01/27/2023 Orders Only [facility] MED & PEDS [address] [facility] [address] Angi Carrasco MD [address] [place] [address] Epigastric pain; Strain of muscle(s) and tendon(s) of the rotator cuff of right shoulder, initial encounter Social History Tobacco Use Types Packs/Day Years Used Date Smoking Tobacco: Never Assessed Comments Unknown Sex and Gender Information Value Date Recorded Sex Assigned at Female 09/12/2022 10:26 AM EDT Legal Sex Female 10:26 AM EDT Gender Identity Female 09/12/2022 10:26 AM EDT Sexual Orientation Straight 09/12/2022 10 :26 AM EDT documented as of this encounter Plan of Treatment Upcoming Encounters Date Type Department Care Team (Late st Contact Info) Description 02/12/2025 9:00 AM EDT Office Visit [facility] MED & PEDS [address] [facility] [address] Angi Carrasco MD [address] [place] [address] 04/15/2025 9:00 AM EDT Clinical Support [facility] MED & PEDS [address] [place] [address] Lian Dhillon, YARELI [address] [place] [address] documented as of this encounter Visit Diagnoses Diagnosis Epigastric pain Abdominal pain, epigastric Strain of muscle(s) and tendon(s) of the rotator cuff of right shoulder, initial encounter documented in this encounter Care Teams Laborer Concrete Paving Relationship Specialty Start Date End Date Angi Carrasco MD [address] [place] [address] PCP - General Internal Medicine 07/28/14 documented as of this encounter
--- OUTSIDE RECORDS SUMMARY | 2025-02-04 09:14 | XMS_ITS | Encounter Summary ---
Author Organization [employer] Address [address] [facility] 7t [place] [address] Care Team Providers Care Paper Coating Supervisor Name Role Phone Angi Carrasco MD Primary Care Provider [phone]- [phone] Reason for Visit * Reason Comments Med Refill Encounter Details Date Type Department Care Team (Late st Contact Info) Description 06/21/2024 Refill [facility] [address] [place] [address] Angi Carrasco MD 505 [facility] [place] [address] Strain of muscle(s) and tendon(s) of the rotator cuff of right shoulder, initial encounter Social History Tobacco Use Types Packs/Day Years Used Date Smoking Tobacco: Never Passive Smoke Exposure: Never Smokeless Tobacco: Never Depression Answer Date Recorded Patient Health Questionnaire-9 Score 0 03/28/2023 Housing Stability Answer Date Recorded What is your housing situation today? I have cici angulo 08/28/[address] you [...] Description 02/12/2025 9:00 AM EDT Office Visit [facility] MED & PEDS [address] [place] [address] Angi Carrasco MD [address] [place] [address] 04/15/2025 9:00 AM EDT Clinical Support [facility] MED & PEDS [address] [place] [address] Lian Dhillon, YARELI [address] [place] [address] documented as of this encounter Visit Diagnoses Diagnosis Strain of muscle(s) and tendon(s) of the rotator cuff of right shoulder, initial encounter documented in this encounter Additional Health Concerns Assessment Noted Time PHQ-9 Depression Total Score: 0 03/28/20 23 9:20 AM EDT documented as of this encounter Care Teams Paper Coating Supervisor Relationship Specialty Start Date End Date Angi Carrasco MD [address] [place] [address] PCP - General Internal Medicine 07/28/14 documented as of this encounter
--- OUTSIDE RECORDS SUMMARY | 2025-02-04 09:14 | XMS_ITS | Encounter Summary ---
Author Organization [employer] Address [address] [facility] 7t [place] [address] Care Team Providers Care Fruit Buyer Name Role Phone Angi Carrasco MD Primary Care Provider [phone]- [phone] Reason for Visit * Reason Onset Date Comments Med Refill 01/10/2025 Encounter Details Date Type Department Care Team (Late st Contact Info) Description 01/10/2025 Refill [facility] MEDICINE [address] [place] [address] Angi Carrasco MD 505 [facility] [place] [address] Strain of muscle(s) and tendon(s) of the rotator cuff of right shoulder, initial encounter Social History Tobacco Use Types Packs/Day Years Used Date Smoking Tobacco: Never Passive Smoke Exposure: Never Smokeless Tobacco: Never Depression Answer Date Recorded Patient Health Questionnaire-9 Score 4 12/17/2024 Patient Health Questionnaire-9 Score 4 12/17/2024 Last PHQ-9: Questionnaire Data Not on file 0 12/17/2024 Housing Stability Answer Date Recorded What is your housing situation today? I have cici angulo 12/17/[address] you li ve. Do you have problems with any of the following? None of the above 12/17/2024 Food Insecurity Answer Date Recorded Within the past 12 months, y ou worried that your food would run out before you got money to buy more: Never True 12/17/2024 Within the past 12 months,th e food you bought just didn't last and you didn't have enough money to get more: Never True 02/2025 Transportation Answer Date Recorded In the past 12 months, has l ack of transportation kept you from medical appts, meetings, work or from getting things needed for daily living? No 12/17/2024 Utilities Answer Date Recorded In the past 12 months, has t he electric, gas, oil or water company threatened to shut off services in your home? No 12/17/2024 Depression Answer Date Recorded Patient Health Questionnaire-2 Score 0 12/17/2024 Internet Access Answer Date Recorded Internet Access Q1 Yes 12/17/2024 Internet Access Q2 Not on file 12/17/2024 Comments Unknown Sex and Gender Information Value Date Recorded Sex Assigned at Female 09/12/2022 10:26 AM EDT Legal Sex Female 10:26 AM EDT Gender Identity Female 09/12/2022 10:26 AM EDT Sexual Orientation Straight 09/12/2022 10 :26 AM EDT documented as of this encounter Miscellaneous Notes * Telephone Encounter - Yadiel Seymour - 01/10/2025 3:39 PM EST Tc from pt stating she called the pharmacy on Monday for traMADol (Ultram) 50 MG tablet but the request was never faxed. Pt is [place] [address] today. If any questions you can contact pt at [phone]. documented in this encounter Plan of Treatment Upcoming Encounters Date Type Department Care Team ([facility] st Contact Info) Description 02/12/2025 9:00 AM EDT Office Visit [facility] MED & PEDS [address] [place] [address] Angi Carrasco MD [address] [place] [address] 04/15/2025 9:00 AM EDT Clinical Support [facility] MED & PEDS [address] [place] [address] Lian Dhillon RN [address] [place] [address] documented as of this encounter Visit Diagnoses Diagnosis Strain of muscle(s) and tendon(s) of the rotator cuff of right shoulder, initial encounter documented in this encounter Additional Health Concerns Assessment Noted Time PHQ-9 Depression Total Score: 4 12/17/19 25 4:24 PM EST documented as of this encounter Care Teams Fruit Buyer Relationship Specialty Start Date End Date Angi Carrasco MD [address] [place] [address] PCP - General Internal Medicine 07/28/14 documented as of this encounter
--- OUTSIDE RECORDS SUMMARY | 2025-02-04 09:14 | XMS_ITS | Encounter Summary ---
Author Organization [employer] Address [address] [facility] 7t [place] [address] Care Team Providers Care Engraving Supervisor Name Role Phone Angi Carrasco MD Primary Care Provider +1- [phone] Reason for Visit * Reason Comments Med Refill Encounter Details Date Type Department Care Team ([facility] st Contact Info) Description 05/22/2024 Refill [facility] MED & PEDS [address] [place] [address] Angi Carrasco MD [address] [place] [address] Strain of muscle(s) and tendon(s) of the [...] Description 02/12/2025 9:00 AM EDT Office Visit [facility] MED & PEDS [address] [place] [address] Angi Carrasco MD [address] [place] [address] 04/15/2025 9:00 AM EDT Clinical Support [facility] MED & PEDS [address] [place] [address] Lian Dhillon RN [address] [place] [address] documented as of this encounter Visit Diagnoses Diagnosis Strain of muscle(s) and tendon(s) of the rotator cuff of right shoulder, initial encounter documented in this encounter Additional Health Concerns Assessment Noted Time PHQ-9 Depression Total Score: 0 03/28/20 23 9:20 AM EDT documented as of this encounter Care Teams Engraving Supervisor Relationship Specialty Start Date End Date Angi Carrasco MD [address] [place] [address] PCP - General Internal Medicine 07/28/14 documented as of this encounter
--- OUTSIDE RECORDS SUMMARY | 2025-02-04 09:14 | XMS_ITS | Encounter Summary ---
Author Organization [employer] Address [address] [facility] [address] [place] [address] Care Team Providers Care Columnist/Commentator Name Role Phone Angi Carrasco MD Primary Care Provider +1- [phone] Encounter Details Date Type Department Care Team (Late st Contact Info) Description 01/13/2025 Orders Only [facility] MEDICINE [address] [place] [address] Angi Carrasco MD 505 [facility] [address] [place] [address] Strain of muscle(s) and tendon(s) of the [...] Description 02/12/2025 9:00 AM EDT Office Visit [facility] MED & PEDS [address] [place] [address] Angi Carrasco MD [address] [place] [address] 04/15/2025 9:00 AM EDT Clinical Support [facility] MED & PEDS [address] [place] [address] Lian Dhillon, YARELI [address] [place] [address] documented as of this encounter Visit Diagnoses Diagnosis Strain of muscle(s) and tendon(s) of the rotator cuff of right shoulder, initial encounter documented in this encounter Additional Health Concerns Assessment Noted Time PHQ-9 Depression Total Score: 4 12/17/19 25 4:24 PM EST documented as of this encounter Care Teams Columnist/Commentator Relationship Specialty Start Date End Date Angi Carrasco MD [address] [place] [address] PCP - General Internal Medicine 07/28/14 documented as of this encounter
--- OUTSIDE RECORDS SUMMARY | 2025-02-04 09:14 | XMS_ITS | Encounter Summary ---
Author Organization [employer] Address [address] [facility] 7t [place] [address] Care Team Providers Care It Technical Specialist Name Role Phone Angi Carrasco MD Primary Care Provider +1- [phone] Reason for Visit * Reason Comments Med Refill Encounter Details Date Type Department Care Team (Late st Contact Info) Description 01/10/2025 Refill [facility] MEDICINE [address] [place] [address] Angi Carrasco MD 505 [facility] [place] [address] Strain of muscle(s) and tendon(s) of the [...] Description 02/12/2025 9:00 AM EDT Office Visit [facility] MED & PEDS [address] [place] [address] Angi Carrasco MD [address] [place] [address] 04/15/2025 9:00 AM EDT Clinical Support [facility] MED & PEDS [address] [place] [address] Lian Dhillon, RN [address] [place] [address] documented as of this encounter Visit Diagnoses Diagnosis Strain of muscle(s) and tendon(s) of the rotator cuff of right shoulder, initial encounter documented in this encounter Additional Health Concerns Assessment Noted Time PHQ-9 Depression Total Score: 4 12/17/19 25 4:24 PM EST documented as of this encounter Care Teams It Technical Specialist Relationship Specialty Start Date End Date Angi Carrasco MD [address] [place] [address] PCP - General Internal Medicine 07/28/14 documented as of this encounter
--- OUTSIDE RECORDS SUMMARY | 2025-02-04 09:14 | XMS_ITS | Clinical Summary ---
Author Organization [employer] Address [address] [facility] 7[address] [place] [address] Care Team Providers Care Whizzer Name Role Phone Angi Carrasco MD Primary Care Provider [phone] Allergies Active Allergy Reactions Criticality Noted Date Comments Erythromycin 08/08/2014 Erythromycin Base Anaphylaxis High 02/15/2023 Fluconazole 02/15/2023 Other reaction(s): Abdominal Pain Oxycodone Nausea Only Low 02/15/2023 Silver 02/15/2023 Other reaction(s): rash/blisters to skin Medications amitriptyline (Elavil) 10 MG tablet Take 2 tablets by mouth. Every day at bedtime Active aspirin (Chrissy Low Dose) 81 MG EC tablet Take 1 tablet by mouth. Active DULoxetine (Cymbalta) [address] capsule Take 1 capsule by mouth 1 (one) time each day. Active furosemide (Lasix) 20 MG tablet Take 1 tablet by mouth 1 (one) time each day. Active Diclofenac Sodium 1 % gel Apply topically in the morning and at bedtime. Active HYDROcodone-acet aminophen (Royal) 5-325 MG tablet take 1 tablet by oral route every 6 hours as needed for pain Active lidocaine (Lidoderm) 5 % patch Place 1 patch on the skin 1 (one) time each day. Active naloxone (Narcan) 4 mg/0.1 mL nasal spray Administer 0.1 mL into affected nostril(s). 09/23/2 022 Active Insulin Syringe-Needle U-100 30G X 5/16 0.3 ML misc 1 (one) time each day. Active loratadine (Claritin) 10 MG tablet TAKE ONE TABLET BY MOUTH EVERY DAY. 30 tablet 5 023 Active rosuvastatin (Crestor) 40 MG tablet Take 1 tablet (40 mg) by mouth in the morning. 90 tablet 1 023 Active famotidine (Pepcid) 20 MG tablet TAKE ONE TABLET AT BEDTIME 30 tablet 5 023 Active gabapentin (Neurontin) 600 MG tablet Take 1 tablet (600 mg) by mouth 2 times daily. 60 tablet 11 023 Active isosorbide mononitrate ER (Imdur) 30 MG 24 hr tabletIndication s:Type 2 diabetes mellitus with hyperglycemia, with long-term current use of insulin ([facility]) Take 1 tablet (30 mg) by mouth in the morning. Do not crush or chew. 30 tablet 024 Active Omeprazole 20 MG tablet delayed-releaseI ndications:Gastr oesophageal reflux disease without esophagitis Take 20 mg by mouth 2 times daily. 60 tablet 11 024 Active Alcohol Swabs (Alcohol Prep) 70 % padsIndications: Strain of muscle(s) and tendon(s) of the rotator cuff of right shoulder, initial encounter USE TO TEST BLOOD SUGAR THREE TIMES DAILY 100 each Active Blood Glucose Monitoring Suppl (FreeStyle Callao Lite) w/Device kitIndications:T ype 2 diabetes mellitus with hyperglycemia, with long-term current use of insulin ([facility]) 1 kit by Other route 3 times daily. 1 kit 024 Active FREESTYLE LITE test strip TEST BLOOD SUGAR THREE TIMES DAILY 100 strip Active TRUEplus Lancets 33G misc TEST BLOOD SUGAR THREE TIMES DAILY. 100 each Active Lantus SoloStar 100 UNIT/ML penIndications:T ype 2 diabetes mellitus with hyperglycemia, with long-term current use of insulin ([facility]),Type 2 diabetes mellitus with unspecified complications ([facility]),Type 2 diabetes mellitus with diabetic polyneuropathy ([facility]) INJECT 40 UNITS SUBCUTANEOUSLY EVERY EVENING 15 mL 1 Active Easy Touch Pen [place] 31G X 6 MM misc USE FOUR DAILY 100 each 5 024 Active cyclobenzaprine (Flexeril) 10 MG tabletIndication s:Lumbar spondylosis Take 1 tablet (10 mg) by mouth 3 times daily. 30 tablet 1 024 Active lisinopril 5 MG tabletIndication s:Primary hypertension Take 2 tablets (10 mg) by mouth Once per day. 30 tablet 3 025 Active semaglutide (Ozempic, 1 MG/DOSE,) 2 MG/1.5ML solution pen-injectorIndi cations:Type 2 diabetes mellitus with hyperglycemia, with long-term current use of insulin ([facility]) Inject 1 mg under the skin 1 (one) time per week. 2 each 12 025 Active Ozempic, 0.25 or 0.5 MG/DOSE, 2 MG/3ML solution pen-injectorIndi cations:Type 2 diabetes mellitus with hyperglycemia, with long-term current use of insulin ([facility]) INJECT 0.5 MG SUBCUTANEOUSLY ONCE A WEEK 3 mL 1 025 Active traMADol (Ultram) 50 MG tabletIndication s:Strain of muscle(s) and tendon(s) of the rotator cuff of right shoulder, initial encounter TAKE ONE TABLET DAILY 28 tablet 025 Active traMADol (Ultram) 50 MG tabletIndication s:Strain of muscle(s) and tendon(s) of the rotator cuff of right shoulder, initial encounter Take 1 tablet (50 mg) by mouth Once per day. 28 tablet 025 Active traMADol (Ultram) 50 MG tabletIndication s:Strain of muscle(s) and tendon(s) of the rotator cuff of right shoulder, initial encounter Take 1 tablet (50 mg) by mouth Once per day. 28 tablet 025 2024 Discontinued(R eorder (will not trigger notification to Pharmacy)) Active Problems Problem Noted Date Diagnosed Date Carpal tunnel syndrome of left wrist 09/12/2024 Carpal tunnel syndrome of right wrist 09/12/2024 De Quervain's tenosynovitis, right 09/12/2024 Dyspnea on exertion 09/12/2024 Gastroesophageal reflux disease 09/12/2024 Numbness and tingling in both hands 09/12/2024 Type 2 diabetes mellitus 09/12/2024 Hyperlipidemia 09/12/2024 Atherosclerotic cardiovascular disease Essential hypertension 09/12/2024 Obesity due to excess calories 09/12/2024 Obesity 09/12/2024 Severe obesity (BMI 35.0-39.9) with comorbidity 09/12/2024 Lumbar spondylosis 09/12/2024 COVID 12/16/2022 Acute cough 12/16/2022 Assessment & Plan (12/16/2022 4:26 PM EST): Patient present with covid + since yesterday, when symptoms started, reports headaches, cough, congestion, no shortness of breath. Paxlovid offered, risk vs benefits were discussed, in case of worsening symptoms visit er. Right wrist tendinitis 10/27/2022 Assessment & Plan (10/27/2022 5:09 PM EST): Patient has been using the wrist splint, she has been taking tramadol, Gabapentin, ibuprofen PRN, applying ice and lidocaine without improvement, she also saw about 2 weeks ago ortho and she received a steroid injetion, without improvement. Told her she needs to rest, will provide letter, will start on meloxicam and prednisone for 5 days, if no improvement call back. Morbid obesity 04/02/2019 Pneumonia of right middle lobe due to infectious organism 10/03/2016 Diabetes mellitus 10/06/2015 Hypercholesterolemia 10/06/2015 Hypertensive disorder 10/06/2015 Encounters Date Type Department Care Team Description 02/04/[address] [facility] [address] [place] [address] Angi Carrasco MD Lumbar spondylosis 01/13/[address] [facility] [address] [place] [address] Angi Carrasco MD Strain of muscle(s) and tendon(s) of the rotator cuff of right shoulder, initial encounter 01/10/[address] [facility] [address] [place] [address] Angi Carrasco MD Strain of muscle(s) and tendon(s) of the rotator cuff of right shoulder, initial encounter 01/10/[address] [facility] [address] [place] [address] Angi Carrasco MD Strain of muscle(s) and tendon(s) of the rotator cuff of right shoulder, initial encounter 12/26/2024 Refill [facility] [address] [place] [address] Angi Carrasco MD Type 2 diabetes mellitus with hyperglycemia, with long-term current use of insulin ([facility]) 12/19/2024 9:00 AM EST Clinical Support [facility] [address] [place] [address] Lian Dhillon RN Back pain, unspecified back location, unspecified back pain laterality, unspecified chronicity 12/19/2024 Travel 12/17/2024 3:30 PM EST Office Visit [facility] [address] [place] [address] Angi Carrasco MD Primary hypertension (Primary Dx); Type 2 diabetes mellitus with hyperglycemia, with long-term current use of insulin ([facility]); Dietary counseling; Exercise counseling; Class 3 severe obesity due to excess calories with serious comorbidity and body mass index (BMI) of 40.0 to 44.9 in adult ([facility]) 12/17/2024 Travel 12/10/[address] [facility] [address] [place] [address] Angi Carrasco MD Strain of muscle(s) and tendon(s) of the rotator cuff of right shoulder, initial encounter 12/10/2024 Refill [facility] [address] [place] [address] Angi Carrasco MD Strain of muscle(s) and tendon(s) of the rotator cuff of right shoulder, initial encounter 11/11/2024 Refill [facility] [address] [place] [address] Angi Carrasco MD Strain of muscle(s) and tendon(s) of the rotator cuff of right shoulder, initial encounter from Last 3 Months Immunizations Name Administration Dates Next Due Influenza injectable quadriv alent IIV4 with preservative 08/31/2018 Influenza injectable quadriv alent preservative free 09/22/2023,08/28/2020,10/08/2019 Influenza, seasonal, injecta ble, preservative free 09/12/2024 Tdap 01/31/2017 Zoster, Recombinant 10/08/2019,01/01/2019 Social History Tobacco Use Types Packs/Day Years Used Date Smoking Tobacco: Never Passive Smoke Exposure: Never Smokeless Tobacco: Never Tobacco Cessation:Counseling Given: Not Answered Depression Answer Date Recorded Patient Health Questionnaire-9 Score 4 12/17/2024 Patient Health Questionnaire-9 Score 4 12/17/2024 Last PHQ-9: Questionnaire Data Not on file 0 12/17/2024 Housing Stability Answer Date Recorded What is your housing situation today? I have cici [place] 12/17/[address] you li [...] Orientation Straight 09/12/2022 10 :26 AM EDT Last Filed Vital Signs Vital Sign Reading Time Taken Comments Blood Pressure 143/68 12/17/2024 3:26 PM EST Pulse 94 12/17/2024 3:26 PM EST Temperature 36.4 ??C (97.5 ??F) 12/17/2024 3:26 PM ES T Respiratory Rate 20 12/17/2024 3:26 PM EST Oxygen Saturation 95% 12/17/2024 3:26 PM EST Inhaled Oxygen Concentration - - Weight 101 kg (222 lb) 12/17/2024 3:26 PM EST Height 157.5 cm (5' 2 ) 12/17/2024 3:26 PM EST Body Mass Index 40.6 12/17/2024 3:26 PM EST Plan of Treatment Upcoming Encounters Date Type Department Care Team (Late st Contact Info) Description 02/12/2025 9:00 AM EDT Office Visit [facility] [address] [place] [address] Angi Carrasco MD [address] [place] [address] 04/15/2025 9:00 AM EDT Clinical Support [facility] [address] [place] [address] Lian Dhillon RN [address] [place] [address] Health Maintenance Due Date Last Done Comments CT Colonography 1965 Colonoscopy 1965 Colorectal Cancer Screening 1965 FIT DNA/Cologuard 1965 FIT 1965 FOBT 1965 HIV Screening 1965 Sigmoidoscopy 1965 Diabetes: Foot Exam 1975 Hepatitis C Screening 1983 Hepatitis B Vaccines (1 of 3 - 19+ 3-dose series) 1984 Pneumococcal Vaccine: 50+ Years (1 of 2 - PCV) 1984 Pap Smear 1986 Cervical Cancer Screening 1995 HPV/Cotest 1995 Diabetes: Urine Protein Screening 11/15/2022 11/15/2021 COVID-19 Vaccine ( season) 2024 10/01/2021, 01/01/2021, 12/04/2020 Lipid Panel 02/05/2025 02/06/2024, 11/15/2021 Eye Exam 02/27/2025 02/28/2024 Diabetes: Hemoglobin A1C 06/16/2025 025, 09/12/2024, 12/28/2023, Additional history exists Alcohol/Substance Use Screening 12/17/2025 12/17/2024 Depression Screening 12/17/2025 12/17/2024, 12/17/19 SDOH Screening 12/17/2025 12/17/2024 Tobacco Screening 12/17/2025 12/17/2024 Mammogram 09/20/2026 09/20/2024, 08/14, 01/02/2020, Additional history exists DTaP/Tdap/Td Vaccines (2 - Td or Tdap) 01/31/2027 01/31/2017 RSV Patients and Patients Aged 60 years or older (1 - 1-dose 75+ series) 2040 Zoster Vaccines Completed 10/08/2019, 01/01/2019 Influenza Vaccine Completed 09/12/2024, , 08/28/2020, Additional history exists HIB Vaccines Aged Out No longer eligi ble based on patient's age to complete this topic HPV Vaccines Aged Out No longer eligi ble based on patient's age to complete this topic Hepatitis A Vaccines Aged Out No long er eligible based on patient's age to complete this topic IPV Vaccines Aged Out No longer eligi ble based on patient's age to complete this topic Meningococcal Vaccine Aged Out No ruben justino eligible based on patient's age to complete this topic RSV under 20 months Aged Out No longe r eligible based on patient's age to complete this topic Rotavirus Vaccines Aged Out No longer eligible based on patient's age to complete this topic Procedures Procedure Name Priority Date/Time Associated Diagnosis Comments POCT TESSA-14 URINE DRUG SCREEN Routine 12/19/2024 8:56 AM EST Back pain, unspecified back location, unspecified back pain laterality, unspecified chronicity POCT GLUCOSE Routine 12/17/2024 4:28 PM EST Type 2 diabetes mellitus with hyperglycemia, with long-term current use of insulin ([facility]) POCT GLYCATED HEMOGLOBIN, TOTAL Routine 12/17/2024 4:27 PM EST Type 2 diabetes mellitus with hyperglycemia, with long-term current use of insulin ([facility]) BI MAMMOGRAM SCREENING TOMOSYNTHESIS BILATERAL Routine 09/20/2024 3:03 PM EST LIPID PANEL, STANDARD Routine 02/06/2024 7:35 AM EDT ALBUMIN, RANDOM URINE W/CREATININE Routine 11/15/2021 8:50 AM EST from Last 3 Months or Most Recently Relevant to Health Maintenance Results * POCT TESSA-14 Urine Drug Screen (12/19/2024 8:56 AM EST) Urine Urine specimen obtained by clean catch procedure / Unknown 12/19/2024 8:56 AM EST Narrative Lian Dhillon RN - 12/19/2024 8:56 AM EST negative for THC, MOP, OXY, HERBIE, MET, AMP, BZO, BAR, MTD, BUPG, TCA, MDMA, PCP, PPX. Lot# [id number] Exp: 10-19-25 Angi Carrasco MD POINT OF CARE TEST ENTER/ED IT ORDERABLES Final Result * (ABNORMAL) POCT Glucose (12/17/2024 4:28 PM EST) Glucose Blood, POC 234(A) 60 - 200 mg/dL QC Media Lot # [id number] Lot# Expiration Date 763, Comment:random Blood Capillary blood specimen / Unknown 12/17/2024 4:28 PM EST Angi Carrasco MD POINT OF CARE TEST ENTER/ED IT ORDERABLES Final Result * (ABNORMAL) POCT HGB A1C (12/17/2024 4:27 PM EST) Hemoglobin A1C 6.8(A) 4.0 - 6.0 % QC Media Lot # [id number] Lot# Expiration Date [id number] Blood 12/17/2024 4:27 PM EST us Angi Carrasco MD POINT OF CARE TEST ENTER/ED IT ORDERABLES Final Result * BI Mammogram Screening Tomosynthesis Bilateral (09/20/2024 3:03 PM EST) Anatomical Region Laterality Modality Breast Bilateral Mammography 09/20/2024 3:03 PM EST Narrative 10/01/2024 9:17 AM EST ? [facility] [place] ? [address] ?[place] [id number] ? Mammography Report ? Signed ? Patient: Brynn Ardon ?MR#: [id number] ?? 85 ? : 1965 ?Acct:[id number] ? Age/Sex: 58 / F ?ADM Date: 09/20/24 ? Loc: HO.MAMMO ? Attending Dr: Angi Carrasco MD ? Ordering Physician: Angi Carrasco MD ?Results: 1 ?? Negative ? Date of Service: 09/20/24 ?Follow Up: 1 Year From Orig ?? inal Mammogram ? Procedure(s): MM tomosynthesis screening BI ?? Accession Number(s): [id number] ? cc: Angi Carrasco MD ? EXAMINATION: ?? MM SCREENING DIGITAL BREAST TOMOSYNTHESIS, BILATERAL ? CLINICAL INFORMATION: ? Screening. Asymptomatic. ? COMPARISON: ?? Mammography: Comparison is made with available priors ? TECHNIQUE: ?? Digital breast mammography with tomosynthesis is performed in both the ?? craniocaudal and mediolateral oblique views along with computer-aided ?? detection (CAD). ? FINDINGS: ?? There are scattered areas of fibroglandular density (ACR BI-RADS breast ?? composition Category b). ? There are no significant masses, abnormal calcifications, or other ?? abnormalities. ? MM/MM tomosynthesis screening BI ?? IMPRESSION: ?? No mammographic evidence of malignancy. ? ASSESSMENT: ? BI-RADS BI-RADS 1 - Negative ? RECOMMENDATION: ?? Routine annual mammography screening. ? 1 year F/U ? This examination should not preclude the clinical evaluation of a ?? suspicious palpable abnormality. ? This patient's information was entered into a reminder system with a ?? target due date for their next mammogram. ? Electronically signed by: ??Laury Monson DO ??10/01/2024 09:13 AM EST ? Dictated By: ?Laury Monson DO ? Signed By: ?<Electronically signed by Laury Monson, DO in OV> ? 10/01/24 0913 ? DD/ 1503 ? TD/TT: 09/20/24 1521 ? Firefighting Equipment Specialist: ? Procedure Note Anh, Ronald - 10/01/2024 [facility] [address] [place] [address] Dr. [place], [place]ANIELLE [id number] Mammography Report Signed Patient: Brynn Ardon EMR#: [id number] : 1965Acct:[id number] Age/Sex: 58 / FADM Date: 09/20/24 Loc: [facility] Attending Dr: Angi Carrasco MD Ordering Physician: Angi Carrasco MDResults: 1 Negative Date of Service: 09/20/24Follow Up: 1 Year From Orig ina Mammogram Procedure(s): MM tomosynthesis screening BI Accession Number(s): [id number] cc: Angi Carrasco MD EXAMINATION: MM SCREENING DIGITAL BREAST TOMOSYNTHESIS, BILATERAL CLINICAL INFORMATION: Screening. Asymptomatic. COMPARISON: Mammography: Comparison is made with available priors TECHNIQUE: Digital breast mammography with tomosynthesis is performed in both the craniocaudal and mediolateral oblique views along with computer-aided detection (CAD). FINDINGS: There are scattered areas of fibroglandular density (ACR BI-RADS breast composition Category b). There are no significant masses, abnormal calcifications, or other abnormalities. MM/MM tomosynthesis screening BI IMPRESSION: No mammographic evidence of malignancy. ASSESSMENT: BI-RADS BI-RADS 1 - Negative RECOMMENDATION: Routine annual mammography screening. 1 year F/U This examination should not preclude the clinical evaluation of a suspicious palpable abnormality. This patient's information was entered into a reminder system with a target due date for their next mammogram. Electronically signed by: Laury Monson DO 10/01/2024 09:13 AM EST Dictated By: Laury Monson DO Signed By: <Electronically signed by Laury Monson DO in OV> 10/01/24 0913 DD/ 1503 TD/TT: 09/20/24 1521 Firefighting Equipment Specialist: Angi Carrasco MD IM BI PROCEDURES Final Res ult * (ABNORMAL) Lipid Panel, Standard (02/06/2024 7:35 AM EDT) Triglycerides 98 <150 mg/dL [facility] Comment:Desirable Triglyceri de: less than 150 mg/dLBorderline High Triglyceride 150-199 mg/dLHigh Triglyceride: 200-499 mg/dLVery High Triglyceride: greater than or equal to 5OO mg/dL Cholesterol 245(H) <200 mg/dL [facility] Comment:Desirable Cholestero l: less than 200 mg/dLBorderline High Cholesterol: 200-239 mg/dLHigh Cholesterol: greater than 239 mg/dL LDL Cholesterol Calculated 172(H) <100 mg/dL [facility] Comment:Desirable LDL: less than 100 mg/dLNear Optimal/Above Optimal LDL: 110- 129 mg/dLBorderline High LDL: 130-159 mg/dLHigh LDL: 160-189 mg/dLVery High LDL: greater than or equal to 190 mg/dL HDL Cholesterol 54 >40 mg/dL [facility] Comment:Desirable HDL: great er than 40 mg/dL Note: This HDL assay may give artificially low results in patients with liver disease. 02/06/2024 7:35 AM EDT 02/06/2024 7:38 AM EDT us Generic External Data Provider LAB BLOOD ORDERAB LES Final Result Performing Organization Address [facility] Co de Phone Number [facility] [address] [place] [address] [phone] * ALBUMIN, RANDOM URINE W/CREATININE (11/15/2021 8:50 AM EST) Microalbumin Urine 0.5 See Note: mg/dL [facility] Comment: Reference Range: ?? Reference Range Not established Microalb/Creat Ratio 5 <30 mcg/mg creat [facility] Comment: ?? The ADA defines abnormalities in albumin excretion as follows: ?? Albuminuria Category ?Result (mcg/mg creatinine) ?? Normal to Mildly increased ?? <30 Moderately increased ? 30-299 ?? Severely increased ? > OR = 300 ?? The ADA recommends that at least two of three specimens collected within a 3-6 month period be abnormal before considering a patient to be within a diagnostic category. Creatinine, Urine 99 20 - 275 mg/dL [facility] 11/15/2021 8:50 AM EST us Angi Carrasco MD LAB URINE ORDERABLES Final Result Performing Organization Address [facility] Co de Phone Number [facility] [address] [place] [address], from Last 3 Months or Most Recently Relevant to Health Maintenance Insurance [facility] , [address] [place] [address] Care Teams Whizzer Relationship Specialty Start Date End Date Angi Carrasco MD [address] [place] [address] [place] [id number] PCP - General Internal Medicine 07/28/14
--- OUTSIDE RECORDS SUMMARY | 2025-02-04 09:14 | XMS_ITS | Encounter Summary ---
Author Organization [employer] Address [address] [place] [address] 7 [place] [address] Care Team Providers Care Machine Operator Name Role Phone Angi Carrasco MD Primary Care Provider +1- [phone] Reason for Visit * Reason Comments Med Refill Encounter Details Date Type Department Care Team (Late st Contact Info) Description 07/18/2023 Refill [facility] [address] [place], [place] [phone] Beau Hester MD [address] [place] [address] Strain of muscle(s) and tendon(s) of the rotator cuff of right shoulder, initial encounter Social History Tobacco Use Types Packs/Day Years Used Date Smoking Tobacco: Never Passive Smoke Exposure: Never Smokeless Tobacco: Never Depression Answer Date Recorded Patient Health Questionnaire-9 Score 0 03/28/2023 Depression Answer Date Recorded Patient Health Questionnaire-2 [...] Encounters Date Type Department Care Team (Late Contact Info) Description 02/12/2025 9:00 AM EDT Office Visit [facility] [address] [place], [place] [phone] Angi Carrasco MD [address] [place] [address] 04/15/2025 9:00 AM EDT Clinical Support [facility] [address] [place] [address] Lian Dhillon, YARELI [address] [place] [address] documented as of this encounter Visit Diagnoses Diagnosis Strain of muscle(s) and tendon(s) of the rotator cuff of right shoulder, initial encounter documented in this encounter Additional Health Concerns Assessment Noted Time PHQ-9 Depression Total Score: 0 03/28/20 23 9:20 AM EDT documented as of this encounter Care Teams Machine Operator Relationship Specialty Start Date End Date Angi Carrasco MD [address] [place] [address] PCP - General Internal Medicine 07/28/14 documented as of this encounter
--- OUTSIDE RECORDS SUMMARY | 2025-02-04 09:14 | XMS_ITS | Encounter Summary ---
Author Organization [employer] Address [address] [facility] [address] [place] [address] Care Team Providers Care Pipe Maker Name Role Phone Angi Carrasco MD Primary Care Provider +1- [phone] Reason for Visit * Reason Comments Med Refill Encounter Details Date Type Department Care Team ([facility] st Contact Info) Description 02/04/2025 Refill [facility] [address] [place] [address] Angi Carrasco MD [address] [place] [address] Lumbar spondylosis Social History Tobacco Use Types Packs/Day Years [...] Description 02/12/2025 9:00 AM EDT Office Visit [facility] [address] [place] [address] Angi Carrasco MD [address] [place] [address] 04/15/2025 9:00 AM EDT Clinical Support [facility] [address] [place] [address] Lian Dhillon, YARELI [address] [place] [address] documented as of this encounter Visit Diagnoses Diagnosis Lumbar spondylosis Lumbosacral spondylosis without myelopathy documented in this encounter Additional Health Concerns Assessment Noted Time PHQ-9 Depression Total Score: 4 12/17/19 25 4:24 PM EST documented as of this encounter Care Teams Pipe Maker Relationship Specialty Start Date End Date Angi Carrasco MD [address] [place] [address] PCP - General Internal Medicine 07/28/14 documented as of this encounter
--- OUTSIDE RECORDS SUMMARY | 2025-02-04 09:14 | XMS_ITS | Encounter Summary ---
Author Organization [employer] Address [address] [facility] [address] [place] [address] Care Team Providers Care Stenotypist Name Role Phone Angi Carrasco MD Primary Care Provider [phone]- [phone] Reason for Visit * Reason Comments Med Refill Encounter Details Date Type Department Care Team ([facility] st Contact Info) Description 12/10/2024 Refill [facility] MED & PEDS [address] [place] [address] Angi Carrasco MD [address] [place] [address] Strain of muscle(s) and tendon(s) of the [...] encounter Miscellaneous Notes * Telephone Encounter - Angi Carrasco MD - 12/17/2024 4:46 PM EST Low risk * Telephone Encounter - Lian Dhillon RN - 12/17/2024 3:50 PM EST .What [employer] Tier would you like this patient to be? Tier 1 = HIGH RISK, Monthly [employer] visits Tier 2 = MODerate RISK, Q3 Month visits Tier 3 = LOW RISK = Q4-6 month visits documented in this encounter Plan of Treatment Upcoming Encounters Date Type Department Care Team (Late st Contact Info) Description 02/12/2025 9:00 AM EDT Office Visit [facility] MED & PEDS [address] [place] [address] Angi Carrasco MD [address] [place] [address] 04/15/2025 9:00 AM EDT Clinical Support [facility] MED & PEDS [address] [place] [address] Lian Dhillon RN [address] [place] [address] documented as of this encounter Visit Diagnoses Diagnosis Strain of muscle(s) and tendon(s) of the rotator cuff of right shoulder, initial encounter documented in this encounter Additional Health Concerns Assessment Noted Time PHQ-9 Depression Total Score: 0 03/28/20 23 9:20 AM EDT documented as of this encounter Care Teams Stenotypist Relationship Specialty Start Date End Date Angi Carrasco MD [address] [place] [address] PCP - General Internal Medicine 07/28/14 documented as of this encounter
--- OUTSIDE RECORDS SUMMARY | 2025-02-04 09:14 | XMS_ITS | Encounter Summary ---
Author Organization [employer] Address [address] [facility] [address] [place] [address] Care Team Providers Care Targeting Acquisition Officer Name Role Phone Angi Carrasco MD Primary Care Provider [phone]- [phone] Encounter Details Date Type Department Care Team (Late Contact Info) Description 04/14/2023 Orders Only [facility] MED & PEDS [address] [place] [address] Angi Carrasco MD [address] [place] [address] Chronic bilateral low back pain with bilateral sciatica (Primary Dx) Social History Tobacco Use Types Packs/Day Years [...] Orientation Straight 09/12/2022 10 :26 AM EDT COVID-19 Exposure Response Date Recorded In the last 10 days, have yo u been in contact with someone who was confirmed or suspected to have Coronavirus/COVID-19? No / Unsure 04/06/2023 8:21 AM EDT documented as of this encounter Plan of Treatment Upcoming Encounters Date Type Department Care Team (Late Contact Info) Description 02/12/2025 9:00 AM EDT Office Visit [facility] MED [facility] [address] [place] [address] Angi Carrasco MD [address] [place] [address] 04/15/2025 9:00 AM EDT Clinical Support [facility] MED & PEDS [address] [place] [address] Lian Dhillon, YARELI [address] [place] [address] documented as of this encounter Visit Diagnoses Diagnosis Chronic bilateral low back pain with bilateral sciatica- Primary documented in this encounter Additional Health Concerns Assessment Noted Time PHQ-9 Depression Total Score: 0 03/28/20 23 9:20 AM EDT documented as of this encounter Care Teams Targeting Acquisition Officer Relationship Specialty Start Date End Date Angi Carrasco MD [address] [place] [address] PCP - General Internal Medicine 07/28/14 documented as of this encounter
--- OUTSIDE RECORDS SUMMARY | 2025-02-04 09:14 | XMS_ITS | Encounter Summary ---
Author Organization [employer] Address [address] [facility] [address] [place] [address] Care Team Providers Care Director Of Collections Name Role Phone Angi Carrasco MD Primary Care Provider +1- [phone] Reason for Visit * Reason Onset Date Comments Med Refill 05/06/2024 Encounter Details Date Type Department Care Team (Late st Contact Info) Description 05/06/2024 Telephone [facility] MEDICINE [address] [place] [address] Angi Carrasco MD 505 [facility] [place], [place] [id number] Med Refill Social History Tobacco Use Types [...] encounter Miscellaneous Notes * Telephone Encounter - Maritza Scott LPN - 05/06/2024 9:00 AM EDT Medication pended to PCP. * Telephone Encounter - Nevaeh Kelley - 05/06/2024 8:19 AM EDT TC from pt requesting medication refill. Medications needing refill : Alcohol Swabs (SM Alcohol Prep) 70 % pads To be sent to: [facility] - [place], [place] - [address] [place] [address] documented in this encounter Plan of Treatment Upcoming Encounters Date Type Department Care Team ([facility] st Contact Info) Description 02/12/2025 9:00 AM EDT Office Visit [facility] MED & PEDS [address] [place] [address] Angi Carrasco MD [address] [place] [address] 04/15/2025 9:00 AM EDT Clinical Support [facility] MED & PEDS [address] [place] [address] Lian Dhillon RN [address] [place] [address] documented as of this encounter Visit Diagnoses Not on filedocumented in this encounter Additional Health Concerns Assessment Noted Time PHQ-9 Depression Total Score: 0 03/28/20 23 9:20 AM EDT documented as of this encounter Care Teams Director Of Collections Relationship Specialty Start Date End Date Angi Carrasco MD [address] [place] [id number] PCP - General Internal Medicine 07/28/14 documented as of this encounter
--- OUTSIDE RECORDS SUMMARY | 2025-02-04 09:14 | XMS_ITS | Encounter Summary ---
Author Organization [employer] Address [address] [facility] 7[address] [place] [address] Care Team Providers Care Financial Services Sales Representative Name Role Phone Angi Carrasco MD Primary Care Provider [phone]- [phone] Reason for Visit * Reason Onset Date Comments Med Refill 01/11/2024 Encounter Details Date Type Department Care Team (Late st Contact Info) Description 01/11/2024 Telephone [facility] MEDICINE [address] [place] [address] Angi Carrasco MD 505 [facility] [place], [place] [id number] Med Refill Social History Tobacco Use Types [...] encounter Miscellaneous Notes * Telephone Encounter - Veronique Green LPN - 01/12/2024 9:50 AM EST Please review message below * Telephone Encounter - Ajay Hall - 01/11/2024 3:48 PM EST Tc from patient requesting a refill for omeprazole (PriLOSEC) [address] capsule states the dosage was increased by the ER provider to 2x daily documented in this encounter Plan of Treatment Upcoming Encounters Date Type Department Care Team (Late st Contact Info) Description 02/12/2025 9:00 AM EDT Office Visit [facility] MED & PEDS [address] [place] [address] Angi Carrasco MD [address] [place] [address] 04/15/2025 9:00 AM EDT Clinical Support [facility] MED & PEDS [address] [place] [address] Lian Dhillon RN [address] [place] [address] documented as of this encounter Visit Diagnoses Diagnosis Gastroesophageal reflux disease without esophagitis- Primary Esophageal reflux documented in this encounter Additional Health Concerns Assessment Noted Time PHQ-9 Depression Total Score: 0 03/28/20 23 9:20 AM EDT documented as of this encounter Care Teams Financial Services Sales Representative Relationship Specialty Start Date End Date Angi Carrasco MD [address] [place] [id number] PCP - General Internal Medicine 07/28/14 documented as of this encounter
== END 2025-02-04 09:04 | disposition home or self-care (01) ==
LOC: HO.HCS 08:41
PROVIDERS: PCP Internal Medicine; Visit Provider Internal Medicine
DX: I25.10 Atherosclerotic heart disease of native coronary artery without angina pectoris (principal); E11.8 Type 2 diabetes mellitus with unspecified complications; I10 Essential (primary) hypertension; E78.5 Hyperlipidemia, unspecified; E66.01 Morbid (severe) obesity due to excess calories
CPT/HCPCS: 93010; 99214

== ENCOUNTER → 2025-02-04 08:40 | Outpatient (BNVA) | payer OTHER, SELFPAY | PROVIDERS: PCP Internal Medicine; Visit Provider Internal Medicine | DX: I10 Essential (primary) hypertension (principal); E78.5 Hyperlipidemia, unspecified; I25.10 Atherosclerotic heart disease of native coronary artery without angina pectoris; E11.8 Type 2 diabetes mellitus with unspecified complications; E66.01 Morbid (severe) obesity due to excess calories; Z68.39 Body mass index [BMI] 39.0-39.9, adult | CPT/HCPCS: 93005 ==

== ENCOUNTER 2025-09-15 11:34 | Emergency (ER) | payer OTHER, SELFPAY ==
--- NOTE | ~2025-09-15 | XR_ITS ---
EXAMINATION: XR SHOULDER, RIGHT CLINICAL INFORMATION: pain, injury COMPARISON: None available. TECHNIQUE: Three views of the right shoulder. FINDINGS: Mild degenerative changes are present at the AC joint. There is minimal degeneration of the glenohumeral joint. No fracture or dislocation is present. XR/XR shoulder RT min 2V IMPRESSION: Mild degenerative changes. Electronically signed by: Richard Gambino MD 09/15/2025 12:42 PM [facility]
[2025-09-15 12:11] VITALS: BP 137/60; PULSE 92; RESP 16; TEMP 36.5; O2SAT 98; BMI 33.7
--- NOTE | 2025-09-15 12:11 | ED_ITS ---
HPI - General Adult General Chief complaint: Extremity Problem Stated complaint: R shoulder pain, unable to move Time Seen by Provider: 09/15/25 15:05 Source: patient and old records reviewed Mode of arrival: ambulatory Limitations: no limitations History of Present Illness ED Provider: SHANIA ASHBY narrative: 59-year-old female with past medical history of diabetes, arthritis, hyperlipidemia, hypertension, coronary artery disease, GERD, she is right-hand dominant she comes in with complaint of right shoulder pain since Monday. She has been taking care of her grandkids and has been picking them up. She also lifts heavy cases of water. She reports severe right shoulder pain but no numbness or weakness, no rash. She denies falls or direct trauma. She has history of this in the past but this is much worse from baseline. MD complaint: shoulder pain Onset (ago): day(s) (Monday) Location: right and upper extremity Radiation: non-radiation Severity: severe Quality: aching Pain Consistency: constant Relieving factors: immobilization Exacerbating factors: movement Associated symptoms: denies other symptoms Related Data Home Medications ?Medication ?Instructions ?Recorded ?Confirmed loratadine 10 mg tablet (Allergy 10 mg PO DAILY 02/04/25 Relief (loratadine)) aspirin 81 mg tablet,delayed 81 mg PO DAILY 12/02/20 0 02/04/25 release blood sugar diagnostic (FreeStyle #10 ea 11/16/2107/14 Lite Strips) lancets 33 gauge (TRUEplus Lancets) #100 ea 11/16/21 0 08/01/24 tramadol 50 mg tablet 50 mg PO DAILY 10/13/2201/12 furosemide 20 mg tablet (Lasix) 20 mg PO Q OTHER DAY 0 02/23/24 02/04/25 semaglutide 0.25 mg or 0.5 mg (2 mg subcut 11/27/24 mg/3 mL) subcutaneous pen injector (Ozempic) lisinopril 5 mg tablet 40 mg PO DAILY 02/04/2501/12 Previous Rx's ?Medication ?Instructions ?Recorded simethicone 125 mg chewable tablet 125 mg PO QID PRN a bdominal 09/29/20 (Gas Relief (simethicone)) distention #120 tabs sucralfate 1 gram tablet 1 g PO DAILY #30 tabs omeprazole 20 mg capsule,delayed 20 mg PO DAILY #30 ca ps 08/17/21 release famotidine 20 mg tablet (Pepcid) 20 mg PO BEDTIME #30 tabs 10/20/21 rosuvastatin 40 mg tablet 40 mg PO DAILY #30 tabs 03/04 insulin glargine 100 unit/mL (3 40 unit (0.4 mL) subcu t QPM #15 mL 09/20/22 mL) subcutaneous pen (Lantus Solostar U-100 Insulin) metoprolol succinate 50 mg 50 mg PO DAILY #30 tabs tablet,extended release 24 hr nitroglycerin 0.4 mg sublingual 0.4 mg sublingual Q5M PRN chest 12/29/23 tablet pain #25 tabs duloxetine 20 mg capsule,delayed 20 mg PO BID pain 30 days #60 caps 06/21/24 release (Cymbalta) lorazepam 1 mg tablet 1 mg PO ONCE anxiety #2 tabs 08/29/24 ibuprofen 600 mg tablet 600 mg PO Q8H PRN pain #10 t abs 10/24/24 gabapentin 600 mg tablet 600 mg PO .COMPLEX 90 days # 270 07/17/25 tabs cyclobenzaprine 10 mg tablet 10 mg PO TID PRN muscle s pasm #20 09/15/25 tabs hydrocodone 5 mg-acetaminophen 325 1 tab PO Q6H PRN pa in #12 tabs 09/15/25 mg tablet ondansetron 4 mg disintegrating 4 mg PO Q8H PRN nausea and 09/15/25 tablet vomiting #20 tabs Allergies Allergy/AdvReac Type Severity Reaction Status Date / Time erythromycin base Allergy Severe ANAPHYLAXIS Verified 09/15/25 12:12 (Erythromycin Base) oxycodone (From Percocet) Allergy Mild Nausea Verified 09/15/25 12:12 fluconazole (Diflucan) Allergy Unknown Abdominal Verified 09/15/25 12:12 Pain silver (From Tegaderm AG AdvReac Unknown rash/blisters Verified 09/15/25 12:12 Mesh) to skin Review of Systems Review of Systems: Constitutional : No Fever, No Chills ENT/Mouth : No Ear Pain, No Hoarseness, No sore throat Eyes: No Eye Pain, No Swelling, No Redness, No Foreign Body Cardiovascular : No Chest Pain, No SOB Respiratory : No Cough, No Dyspnea Gastrointestinal : No Nausea, No Vomiting, No Diarrhea, No abdominal Pain Genitourinary : No Dysuria, No Hematuria Musculoskeletal : positive joint pain, No Myalgias, No Joint Swelling Skin : No Skin lacerations, No rash Neuro : No Weakness, No Numbness All other systems reviewed and are negative [facility] Past Medical History Attestation statement: The following information was validated with the patient. Source: old records reviewed Medical History Obesity due to excess calories Hyperlipidemia LDL goal <70 Type 2 diabetes mellitus with diabetic polyneuropathy Obesity Dyspnea on exertion Other and unspecified hyperlipidemia Essential hypertension Type 2 diabetes mellitus with unspecified complications Atherosclerotic cardiovascular disease Hypercholesteremia Diabetes mellitus TIA (transient ischemic attack) Gastroesophageal reflux disease Surgical History H/O cardiac catheterization Hx of tubal ligation Hx of cholecystectomy Family History Family History Father Hx of diabetes insipidus Hx of cardiac asthma Mother Hx of cervical cancer Hx of heat stroke Social History Social History Alcohol intake: never Patient Tobacco Use Status: Never used Tobacco Substance Use Type: Marijuana Advance Directives: Yes Advance Directives Information Provided: Yes Advance Directives on File: No Current occupational status: employed 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 Oriented X3. No acute distress. Eyes: Pupils equal, round and reactive to light. ENT: Pharynx normal. Neck: Normal inspection. Neck supple. CVS: Normal heart rate and rhythm. Pulses normal. Respiratory: No respiratory distress. Breath sounds normal. Abdomen: Soft and nontender. Skin: Skin warm and dry. Normal skin color. Normal skin turgor. Extremities: Right shoulder tenderness to palpation along the AC joint and anterior biceps area, she is neurovascularly intact distally, she has no redness swelling or rash, she has pain with any range of motion testing Neuro: Oriented X 3. No motor deficit. No sensory deficit. Course Course Course Narrative: Rapid medical examination performed in triage by Lilliana Ford PA-C: Patient is a 59 year old assigned female at presenting to the emergency department with right shoulder pain. Patient states that over the last few days she has had worsening right shoulder pain and she cannot move it. Detailed physical exam and review of systems are deferred to the painter drum. Imaging ordered. Patient placed back in the waiting room pending room availability and results. Procedures Orthopedic Splinting/Casting Injury #1: Side: right Upper Extremity Injury Location: shoulder Upper Extremity Immobilizer: sling/shoulder immobilizer Additional Comments: Neurovascularly intact Medical Decision Making Medical Decision Making MDM Narrative: 59-year-old female with past medical history of diabetes, arthritis, hyperlipidemia, hypertension, coronary artery disease, GERD, she is right-hand dominant now here with pain to right shoulder after overuse and increased movements after taking care of grandchildren, she has no signs of infection she has no signs of swelling to suggest DVT, she will be placed in a sling, we will obtain x-ray, will refer to PCP and started on pain control Differential Diagnosis Differential Diagnoses: The differential diagnosis associated with the presentation includes Arthritis, rotator cuff injury, Independent Interpretation I performed an independent interpretation of an: Plain X-Ray (No fracture) Radiology Impression Discussion of test interpretation with radiology: I have reviewed the radiologist's reading. External Record Review External record reviewed: Outpatient record Prescription Management I considered prescription management with: Pain Medication and Other Discharge Plan Discharge Clinical Impression: Acute pain of right shoulder Patient Disposition: Home, Self-Care Instructions: Arthralgia (ED), Shoulder Pain (ED) Additional Instructions: sling for 2 days use heat and ice for pain relief please follow up with your primary care DrGisela For physical therapy and possible MRI if this does not improve Take pain medications sparingly Return for any worsening symptoms or concerns Prescriptions: New cyclobenzaprine 10 mg tablet 10 mg PO TID PRN (Reason: muscle spasm) Qty: 20 0RF hydrocodone-acetaminophen 5-325 mg tablet 1 tab PO Q6H PRN (Reason: pain) Qty: 12 0RF Rx Instructions: partial fill okay; Partial Fill upon patient request. ondansetron 4 mg tablet,disintegrating 4 mg PO Q8H PRN (Reason: nausea and vomiting) Qty: 20 0RF No Action omeprazole 20 mg capsule,delayed release(DR/EC) 20 mg PO DAILY Qty: 30 0RF famotidine [Pepcid] 20 mg tablet 20 mg PO BEDTIME Qty: 30 3RF Lantus Solostar U-100 Insulin 100 unit/mL (3 mL) insulin pen 40 unit subcut QPM Qty: 15 1RF lorazepam 1 mg tablet 1 mg PO ONCE Qty: 2 0RF Rx Instructions: Take one tablet 30-60 min prior to MRI test. gabapentin 600 mg tablet 600 mg PO .COMPLEX 90 Days Qty: 270 0RF Rx Instructions: 600 mg orally 1 tab in AM and 2 tabs at bedtime; ibuprofen 600 mg tablet 600 mg PO Q8H PRN (Reason: pain) Qty: 10 0RF loratadine [Allergy Relief (loratadine)] 10 mg tablet 10 mg PO DAILY simethicone [Gas Relief (simethicone)] 125 mg tablet,chewable 125 mg PO QID PRN (Reason: abdominal distention) Qty: 120 2RF lisinopril 5 mg tablet 40 mg PO DAILY aspirin 81 mg tablet,delayed release (DR/EC) 81 mg PO DAILY (DME) FreeStyle Lite Strips Strip See Rx Instructions .ROUTE .MEDSUPPLY Qty: 10 Rx Instructions: As directed once a day (DME) lancets [TRUEplus Lancets] 33 gauge misc See Rx Instructions topical .MEDSUPPLY Qty: 100 Rx Instructions: As directed rosuvastatin 40 mg tablet 40 mg PO DAILY Qty: 30 6RF sucralfate 1 gram tablet 1 g PO DAILY Qty: 30 2RF tramadol 50 mg tablet 50 mg PO DAILY furosemide [Lasix] 20 mg tablet 20 mg PO Q OTHER DAY metoprolol succinate 50 mg tablet extended release 24 hr 50 mg PO DAILY Qty: 30 5RF nitroglycerin 0.4 mg tablet, sublingual 0.4 mg sublingual Q5M PRN (Reason: chest pain) Qty: 25 1RF Rx Instructions: do not exceed 3 doses per episode duloxetine [Cymbalta] 20 mg capsule,delayed release(DR/EC) 20 mg PO BID 30 Days Qty: 60 0RF Ozempic 0.25 mg or 0.5 mg (2 mg/3 mL) pen injector subcut Stand Alone Forms: Work/School Release Print Language: Macanese
[2025-09-15 15:49] VITALS: BP 137/60; PULSE 92; RESP 16; TEMP 36.5; O2SAT 98
== END 2025-09-15 15:49 | disposition home or self-care (01) ==
PROVIDERS: Emergency Provider Emergency Medicine; PCP Internal Medicine
DX: M25.511 Pain in right shoulder (principal); E11.9 Type 2 diabetes mellitus without complications; I10 Essential (primary) hypertension; K21.9 Gastro-esophageal reflux disease without esophagitis
CPT/HCPCS: 73030; 99283

== ENCOUNTER → 2025-09-15 12:14 | Outpatient (BNV) | payer OTHER, SELFPAY | PROVIDERS: PCP Internal Medicine; Visit Provider Radiology Diagnostic Radiology | DX: S49.91XA Unspecified injury of right shoulder and upper arm, initial encounter (principal); M19.011 Primary osteoarthritis, right shoulder | CPT/HCPCS: 73030 ==

== ENCOUNTER 2025-09-17 11:51 | Outpatient (REF) | payer OTHER, SELFPAY ==
--- OUTSIDE RECORDS SUMMARY | 2025-09-17 09:15 | XMS_ITS | Encounter Summary ---
Author Organization [employer] Address [address] [place] [address] Care Team Providers Care Harvest Crew Supervisor Name Role Phone Angi Carrasco MD Primary Care Provider [phone] Reason for Referral * Consultation (Routine) - Pending Review Specialty Diagnoses / Procedures Referred By Alejandro gooden Referred To Contact Orthopaedic Surgery Diagnoses Chronic right shoulder pain Rotator cuff impingement syndrome of right shoulder Angi Carrasco MD [address] [place] [address] Phone: tel: fax: Referral ID Status Reason Start Date Expiration Date Visits Requested Visits Authorized [id number] Pending Review Specialty Services Required 09/17/2025 09/17/2026 1 1 * Imaging (Routine) - Pending Review Specialty Diagnoses / Procedures Referred By Alejandro gooden Referred To Contact Radiology Diagnoses Chronic right shoulder pain Rotator cuff impingement syndrome of right shoulder Procedures MR Shoulder w/o Contrast Right Angi Carrasco MD [address] [place] [address] Phone: tel: fax: [address] Phone: tel: fax: Referral ID Status Reason Start Date Expiration Date V isits Requested Visits Authorized [id number] Pending Review 09/17/2025 09/17/2026 1 1 Reason for Visit * Reason Comments ED follow up Encounter Details Date Type Department Care Team ([facility] st Contact Info) Description 09/17/2025 9:15 AM EST Office Visit [facility] MED & PEDS [address] [place] [address] Angi Carrasco MD [address] [place] [address] Chronic right shoulder pain (Primary Dx); Rotator cuff impingement syndrome of right shoulder; Abnormal urine color; Type 2 diabetes mellitus with hyperglycemia, with long-term current use of insulin (HCC) Social History Tobacco Use Types Packs/Day Years Used Date Smoking Tobacco: Never Passive Smoke Exposure: Never Smokeless Tobacco: Never Depression Answer Date Recorded Patient Health Questionnaire-9 Score 0 02/12/2025 Patient Health Questionnaire-9 Score 0 02/12/2025 Last PHQ-9: Questionnaire Data Not on file 0 02/12/2025 Housing Stability Answer Date Recorded What is [...] Date Recorded Patient Health Questionnaire-2 Score 0 02/12/2025 Internet Access Answer Date Recorded Internet Access Q1 Yes 12/17/2024 Internet Access Q2 Not on file 12/17/2024 Comments Unknown Sex and Gender Information Value Date Recorded Sex Assigned at Female 09/12/2022 10:26 AM EDT Legal Sex Female 10:26 AM EDT Gender Identity Female 09/12/2022 10:26 AM EDT Sexual Orientation Straight 09/12/2022 10 :26 AM EDT documented as of this encounter Last Filed Vital Signs Vital Sign Reading Time Taken Comments Blood Pressure 104/51 09/17/2025 9:28 AM EST Pulse 74 09/17/2025 9:28 AM EST Temperature 36.8 C (98.2 F) 09/17/2025 9:28 AM EST Respiratory Rate 21 09/17/2025 9:28 AM EST Oxygen Saturation 95% 09/17/2025 9:28 AM EST Inhaled Oxygen Concentration - - Weight 83 kg (183 lb) 09/17/2025 9:28 AM EST Height 156 cm (5' 1.42 ) 09/17/2025 9:28 AM EST Body Mass Index 34.11 09/17/2025 9:28 AM EST documented in this encounter Progress Notes * Angi Carrasco MD - 09/17/2025 9:15 AM EST SUBJECTIVE Brynn Ardon is a 59 y.o. female who presents for ED follow up. Brynn Ardon, 59-year-old female - History of right rotator cuff tear and impingement, seen by orthopedics in March 2020 - Prior episode of severe right shoulder pain in 2019, unable to breathe due to pain - Recent onset of right shoulder pain and inability to move arm, started aching over the weekend while caring for daughter's children - Pain radiates from back to front of right shoulder and up to right side of neck, constant and severe, worsened by movement, bending over, or getting out of bed - Reports shoulder feels hot to the touch - Requires assistance with dressing due to pain and limited mobility - Uses arm sling during the day, pillow under arm at night for support - Taking hydrocodone and Flexeril for pain, reports hydrocodone is ineffective - History of mild degenerative changes and osteoarthritis noted on prior shoulder X-ray - Right-handed, difficulty performing work due to pain Also reports change of color of urine x the last few days. No burning w/ urination. No fever/abdominal/pelvic pain. Problem List[1] Allergies[2] Medications Ordered Prior to Encounter[3] Review of Systems Constitutional: Negative for chills, diaphoresis and fatigue. Respiratory: Negative for cough, shortness of breath and stridor. Cardiovascular: Negative for leg swelling. Gastrointestinal: Negative for blood in stool and constipation. Musculoskeletal: Negative for gait problem, joint swelling and myalgias. OBJECTIVE Vitals: 09/17/25 0928 BP: 104/51 BP Location: Left arm Patient Position: Sitting BP Cuff Size: Adult long Pulse: 74 Resp: 21 Temp: 98.2 ??F (36.8 ??C) TempSrc: Oral SpO2: 95% Weight: 183 lb (83 kg) Height: 5' 1.42 (1.56 m) Physical Exam Constitutional: General: She is not in acute distress. Appearance: Normal appearance. She is not ill-appearing or diaphoretic. Pulmonary: Effort: Pulmonary effort is normal. Musculoskeletal: Right shoulder: Tenderness and bony tenderness present. Decreased range of motion. Left shoulder: Normal. Neurological: Mental Status: She is alert. Assessment/Plan Assessment/Plan Diagnoses and all orders for this visit: Chronic right shoulder pain - MR Shoulder w/o Contrast Right; Future - Referral to Orthopaedic Surgery; Future - traMADol (Ultram) 50 MG tablet; Take 2 tablets (100 mg) by mouth at bedtime for 10 days. Rotator cuff impingement syndrome of right shoulder - MR Shoulder w/o Contrast Right; Future - Referral to Orthopaedic Surgery; Future - traMADol (Ultram) 50 MG tablet; Take 2 tablets (100 mg) by mouth at bedtime for 10 days. Abnormal urine color - POCT Urinalysis - Culture, Urine, Routine; Future Type 2 diabetes mellitus with hyperglycemia, with long-term current use of insulin ([facility]) Comments: A1c 5.8 % No change in management. Orders: - POCT Glucose - POCT Hgb A1c Chronic right shoulder pain: - Acute on chronic right shoulder pain. - Ordered MRI of right shoulder. Prescribed tramadol 100 mg by mouth at bedtime for 10 days for pain control. Advised to use ice and heating pad for symptomatic relief. Referral to orthopedics. Rotator cuff impingement syndrome of right shoulder: - Rotator cuff impingement syndrome of right shoulder. - Will review MRI results to further evaluate rotator cuff pathology. Advised to continue muscle relaxant as previously prescribed. This note was drafted using [employer] ([employer]) technology. The patient/patient's guardian has been informed and has consented to the use of this technology: Yes [1] Patient Active Problem List Diagnosis Diabetes mellitus ([facility]) Hypercholesterolemia Hypertensive disorder Morbid obesity ([facility]) ([facility]) Pneumonia of right middle lobe due to infectious organism Right wrist tendinitis COVID Acute cough Carpal tunnel syndrome of left wrist Carpal tunnel syndrome of right wrist De Quervain's tenosynovitis, right Dyspnea on exertion Gastroesophageal reflux disease Numbness and tingling in both hands Type 2 diabetes mellitus (HCC) Hyperlipidemia Atherosclerotic cardiovascular disease Essential hypertension Obesity due to excess calories Obesity Severe obesity (BMI 35.0-39.9) with comorbidity ([facility]) ([facility]) Lumbar spondylosis Long-term current use of opiate analgesic [2] Allergies Allergen Reactions Erythromycin Base Anaphylaxis Erythromycin Fluconazole Other reaction(s): Abdominal Pain Silver Other reaction(s): rash/blisters to skin Oxycodone Nausea Only [3] Current Outpatient Medications on File Prior to Visit Medication Sig Dispense Refill Alcohol Swabs (Alcohol Prep) 70 % pads USE TO TEST BLOOD SUGAR THREE TIMES DAILY 100 each 5 amitriptyline (Elavil) 10 MG tablet Take 2 tablets by mouth. Every day at bedtime aspirin (Chrissy Low Dose) 81 MG EC tablet Take 1 tablet by mouth. Blood Glucose Monitoring Suppl (FuelMyBlog Lite) w/Device kit 1 kit by Other route 3 times daily. 1 kit 0 cyclobenzaprine (Flexeril) 10 MG tablet TAKE ONE TABLET THREE TIMES DAILY 30 tablet 1 Diclofenac Sodium 1 % gel Apply topically in the morning and at bedtime. DULoxetine (Cymbalta) [address] capsule Take 1 capsule by mouth 1 (one) time each day. Easy Touch Pen Assonet 31G X 6 MM misc USE FOUR DAILY 100 each 5 famotidine (Pepcid) 20 MG tablet TAKE ONE TABLET AT BEDTIME 30 tablet 5 FREESTYLE LITE test strip TEST BLOOD SUGAR THREE TIMES DAILY 100 strip 5 furosemide (Lasix) 20 MG tablet Take 1 tablet by mouth 1 (one) time each day. gabapentin (Neurontin) 600 MG tablet Take 1 tablet (600 mg) by mouth 2 times daily. 60 tablet 11 HYDROcodone-acetaminophen ([place]) 5-325 MG tablet take 1 tablet by oral route every 6 hours as needed for pain Insulin Syringe-Needle U-100 30G X 5/16 0.3 ML misc 1 (one) time each day. isosorbide mononitrate ER (Imdur) 30 MG 24 hr tablet Take 1 tablet (30 mg) by mouth in the morning.Do not crush or chew. 30 tablet 11 Lantus SoloStar 100 UNIT/ML pen INJECT 40 UNITS SUBCUTANEOUSLY EVERY EVENING 15 mL 1 lidocaine (Lidoderm) 5 % patch Place 1 patch on the skin 1 (one) time each day. lisinopril 5 MG tablet TAKE TWO TABLETS ONCE DAILY 60 tablet 3 loratadine (Claritin) 10 MG tablet TAKE ONE TABLET BY MOUTH EVERY DAY. 30 tablet 5 methocarbamol (Robaxin) 500 MG tablet Take 1 tablet (500 mg) by mouth every 6 (six) hours for 10 days. 40 tablet 0 naloxone (Narcan) 4 mg/0.1 mL nasal spray Administer 1 spray (4 mg) into affected nostril(s) if needed for opioid reversal. 2 each 1 Omeprazole 20 MG tablet delayed-release Take 20 mg by mouth 2 times daily. 60 tablet 11 Ozempic, 2 MG/DOSE, 8 MG/3ML solution pen-injector INJECT 2 MG'S SUBCUTANEOUSLY EVERY 7 DAYS IN THEABDOMEN, THIGHS OR UPPER ARM. ROTATE INJECTION SITES. 3 mL 1 rosuvastatin (Crestor) 40 MG tablet Take 1 tablet (40 mg) by mouth in the morning. 90 tablet 1 traMADol (Ultram) 50 MG tablet TAKE ONE TABLET EVERY DAY 28 tablet 0 traMADol (Ultram) 50 MG tablet TAKE ONE TABLET BY MOUTH ONCE DAILY 28 tablet 0 TRUEplus Lancets 33G misc TEST BLOOD SUGAR THREE TIMES DAILY. 100 each 11 No current facility-administered medications on file prior to visit. documented in this encounter Plan of Treatment Upcoming Encounters Date Type Department Care Team (Late st Contact Info) Description 10/29/2025 9:00 AM EST Clinical Support [facility] MED [facility] PEDS [address] [place] [address] Lian Dhillon RN [address] [place] [address] Scheduled Orders Name Type Priority Associated Diagnoses Orde r Schedule MR Shoulder w/o Contrast Right Imaging Routine Chronic right shoulder pain Rotator cuff impingement syndrome of right shoulder Expected: 09/17/2025, Expires: 09/17/2026 Culture, Urine, Routine Microbiology Routine Abnormal urine color Expected: 09/17/2025 (Approximate), Expires: 09/17/2026 Scheduled Referrals Name Type Priority Associated Diagnoses Orde r Schedule Referral to Orthopaedic Surgery Outpatient Referral Routine Chronic right shoulder pain Rotator cuff impingement syndrome of right shoulder Expected: 09/17/2025 (Approximate), Expires: 09/17/2026 documented as of this encounter Procedures Procedure Name Priority Date/Time Associated Diagnosis Comments POCT GLUCOSE Routine 09/17/2025 10:32 AM EST Type 2 diabetes mellitus with hyperglycemia, with long-term current use of insulin (HCC) POCT GLYCATED HEMOGLOBIN, TOTAL Routine 09/17/2025 10:31 AM EST Type 2 diabetes mellitus with hyperglycemia, with long-term current use of insulin (HCC) POCT URINALYSIS DIPSTICK Routine 09/17/2025 10:28 AM EST Abnormal urine color documented in this encounter Results * POCT Glucose (09/17/2025 10:32 AM EST) Glucose Blood, POC 104 60 - 200 mg/dL QC Media Lot # [id number] Lot# Expiration Date Comment:fasting Blood Capillary blood specimen / Unknown 09/17/2025 10:32 AM EST us Angi Carrasco MD POINT OF CARE TEST ENTER/ED IT ORDERABLES Final Result * POCT Hgb A1c (09/17/2025 10:31 AM EST) Hemoglobin A1C 5.5 4.0 - 5.7 % QC Media Lot # [id number] Lot# Expiration Date Blood 09/17/2025 10:3 1 AM EST us Angi Carrasco MD POINT OF CARE TEST ENTER/ED IT ORDERABLES Final Result * (ABNORMAL) POCT Urinalysis (09/17/2025 10:28 AM EST) Color, UA [place] Clarity, UA Clear Glucose, UA Negative Bilirubin, UA Moderate Ketones, UA Positive Comment:40 Spec Grav, UA 1.030 Blood, UA Positive(A) Negative, None Detected Comment:trace-intact pH, UA 5.5 Protein, UA Trace Urobilinogen, UA 0.2 Leukocytes, UA Trace Negative, Rare, Trace Nitrite, UA Negative Negative, None Detected Appearance, UA clear QC Media Lot # [id number] Lot# Expiration Date [id number] Urine (Urine, Random) 09/17/2025 10:28 AM EST Angi Carrasco MD POINT OF CARE TEST ENTER/ED IT ORDERABLES Final Result documented in this encounter Visit Diagnoses Diagnosis Chronic right shoulder pain- Primary Pain in joint, shoulder region Rotator cuff impingement syndrome of right shoulder Abnormal urine color Other urinary problems Type 2 diabetes mellitus with hyperglycemia, with long-term current use of insulin (HCC) documented in this encounter Additional Health Concerns Assessment Noted Time PHQ-9 Depression Total Score: 0 02/13/20 25 9:01 AM EDT documented as of this encounter Care Teams Harvest Crew Supervisor Relationship Specialty Start Date End Date Angi Carrasco MD [address] [place] [address] PCP - General Internal Medicine 07/28/14 documented as of this encounter
--- OUTSIDE RECORDS SUMMARY | 2025-09-17 14:32 | XMS_ITS | Encounter Summary ---
Author Organization [employer] Address [address] [facility] 7 [place] [address] Care Team Providers Care Welding Engineer Name Role Phone Angi Carrasco MD Primary Care Provider [phone] Reason for Visit * Reason Comments Med Refill Encounter Details Date Type Department Care Team ([facility] Contact Info) Description 12/10/2024 Refill [facility] CH[facility] MED & PEDS [address] [place] [address] Angi Carrasco MD [address] [place] [address] Strain of muscle(s) and tendon(s) of the [...] RN - 12/17/2024 3:50 PM EST .What MONITORING COORDINATOR Tier would you like this patient to be? Tier 1 = HIGH RISK, Monthly MONITORING COORDINATOR visits Tier 2 = MODerate RISK, Q3 Month visits Tier 3 = LOW RISK = Q4-6 month visits documented in this encounter Plan of Treatment Upcoming Encounters Date Type Department Care Team ([facility] st Contact Info) Description 10/29/2025 9:00 AM EST Clinical Support [facility] MED & PEDS [address] [place] [address] Lian Dhillon, YARELI [address] [place] [address] documented as of this encounter Visit Diagnoses Diagnosis Strain of muscle(s) and tendon(s) of the rotator cuff of right shoulder, initial encounter documented in this encounter Additional Health Concerns Assessment Noted Time PHQ-9 Depression Total Score: 0 03/28/20 23 9:20 AM EDT documented as of this encounter Care Teams Welding Engineer Relationship Specialty Start Date End Date Angi Carrasco MD [address] [place] [address] PCP - General Internal Medicine 07/28/14 documented as of this encounter
--- OUTSIDE RECORDS SUMMARY | 2025-09-17 14:32 | XMS_ITS | Encounter Summary ---
Author Organization [employer] Address [address] [facility] [address] [place] [address] Care Team Providers Care Panel Saw Operator Name Role Phone Angi Carrasco MD Primary Care Provider [phone] Encounter Details Date Type Department Care Team (Latest Contact Info) Description 09/17/2025 Travel Social History Tobacco Use Types Packs/Day Years [...] 10/29/2025 9:00 AM EST Clinical Support [facility] MED [facility] PEDS [address] [place] [address] Lian Dhillon, YARELI [address] [place] [address] documented as of this encounter Visit Diagnoses Not on filedocumented in this encounter Additional Health Concerns Assessment Noted Time PHQ-9 Depression Total Score: 0 02/13/20 25 9:01 AM EDT documented as of this encounter Care Teams Panel Saw Operator Relationship Specialty Start Date End Date Angi Carrasco MD [address] [place] [address] PCP - General Internal Medicine 07/28/14 documented as of this encounter
--- OUTSIDE RECORDS SUMMARY | 2025-09-17 14:32 | XMS_ITS | Encounter Summary ---
Author Organization [employer] Address [address] [facility] 7t [place] [address] Care Team Providers Care Director Of Orthopedics Name Role Phone Angi Carrasco MD Primary Care Provider [phone] Encounter Details Date Type Department Care Team (Late st Contact Info) Description 09/15/2025 Orders Only [facility] External Provider, [facility] Social History Tobacco Use Types Packs/Day Years [...] Description 10/29/2025 9:00 AM EST Clinical Support [facility] MED & PEDS [address] [place] [address] Lian Dhillon, YARELI [address] [place] [address] documented as of this encounter Procedures Procedure Name Priority Date/Time Associated Diagnosis Comments XR SHOULDER 2+ VIEWS RIGHT Routine 09/15/2025 12:30 PM EST documented in this encounter Results * XR Shoulder 2+ Views Right (09/15/2025 12:30 PM EST) Anatomical Region Laterality Modality Upper Extremities, Shoulder Right Radi ographic Imaging 09/15/2025 12:3 0 PM EST Narrative 09/15/2025 12:45 PM EST [address] [address] XRay Report Signed Patient: Brynn Ardon MR#: [id number] [birth year] : 1965 Acct:[id number] Age/Sex: 59 / F ADM Date: 09/15/25 Loc: HO.ED Attending Dr: Ordering Physician: Lilliana Ford Date of Service: 09/15/25 Procedure(s): XR shoulder RT min 2V Accession Number(s): [id number] cc: Angi Carrasco MD; Lilliana Ford Reason for Exam: pain, injury EXAMINATION: XR SHOULDER, RIGHT CLINICAL INFORMATION: pain, injury COMPARISON: None available. TECHNIQUE: Three views of the right shoulder. FINDINGS: Mild degenerative changes are present at the AC joint. There is minimal degeneration of the glenohumeral joint. No fracture or dislocation is present. XR/XR shoulder RT min 2V IMPRESSION: Mild degenerative changes. Electronically signed by: Richard Gambino MD 09/15/2025 12:42 PM EST RP Dictated By: Richard Gambino MD Signed By: <Electronically signed by Richard Gambino MD in OV> 09/15/25 1242 DD/ 1230 TD/TT: 09/15/25 1235 Data Officer: Procedure Note Donotuseinterpreter, Image - 09/15/[address] [address] XRay Report Signed Patient: Brynn Ardon EMR#: [id number] [birth year] : 1965Acct:[id number] Age/Sex: 59 / FADM Date: 09/15/25 Loc: .ED Attending Dr: Ordering Physician: Lilliana Ford Date of Service: 09/15/25 Procedure(s): XR shoulder RT min 2V Accession Number(s): [id number] cc: Angi Carrasco MD; Lilliana Ford Reason for Exam: pain, injury EXAMINATION: XR SHOULDER, RIGHT CLINICAL INFORMATION: pain, injury COMPARISON: None available. TECHNIQUE: Three views of the right shoulder. FINDINGS: Mild degenerative changes are present at the AC joint. There is minimal degeneration of the glenohumeral joint. No fracture or dislocation is present. XR/XR shoulder RT min 2V IMPRESSION: Mild degenerative changes. Electronically signed by: Richard Gambino MD 09/15/2025 12:42 PM EST RP Dictated By: Richard Gambino MD Signed By: <Electronically signed by Richard Gambino MD in OV> 09/15/25 1242 DD/ 1230 TD/TT: 09/15/25 1235 Data Officer: us [facility] External Provider IMG XR PROCEDURES Edited Result - Final documented in this encounter Visit Diagnoses Not on filedocumented in this encounter Additional Health Concerns Assessment Noted Time PHQ-9 Depression Total Score: 0 02/13/20 25 9:01 AM EDT documented as of this encounter Care Teams Director Of Orthopedics Relationship Specialty Start Date End Date Angi Carrasco MD [address] [place] [address] PCP - General Internal Medicine 07/28/14 documented as of this encounter
--- OUTSIDE RECORDS SUMMARY | 2025-09-17 14:32 | XMS_ITS | Encounter Summary ---
Author Organization [employer] Address [address] [place] [address] Care Team Providers Care Warp Tension Tester Name Role Phone Angi Carrasco MD Primary Care Provider [phone] Encounter Details Date Type Department Care Team (Late Contact Info) Description 01/27/2023 Orders Only [facility] MED & PEDS [address] [place] [address] Angi Carrasco MD [address] [place] [address] Epigastric pain; Strain of muscle(s) and tendon(s) [...] Description 10/29/2025 9:00 AM EST Clinical Support [facility] MED & PEDS [address] [place], [place] [phone] Lian Dhillon, YARELI [address] [place], [place] [phone] documented as of this encounter Visit Diagnoses Diagnosis Epigastric pain Abdominal pain, epigastric Strain of muscle(s) and tendon(s) of the rotator cuff of right shoulder, initial encounter documented in this encounter Care Teams Warp Tension Tester Relationship Specialty Start Date End Date Angi Carrasco MD [address] [place] [address] PCP - General Internal Medicine 07/28/14 documented as of this encounter
--- OUTSIDE RECORDS SUMMARY | 2025-09-17 14:32 | XMS_ITS | Encounter Summary ---
Author Organization [employer] Address [address] [place] [address] Care Team Providers Care Hot Box Checker Name Role Phone Angi Carrasco MD Primary Care Provider Reason for Visit * Reason Comments Med Refill Encounter Details Date Type Department Care Team (Late st Contact Info) Description 07/18/2023 Refill [facility] MED & PEDS [address] [place] [address] Beau Hester MD [address] [place] [address] Strain of muscle(s) and tendon(s) of the [...] Description 10/29/2025 9:00 AM EST Clinical Support [facility] MED & PEDS [address] [place], [place] [phone] Lian Dhillon RN [address] [place] [address] documented as of this encounter Visit Diagnoses Diagnosis Strain of muscle(s) and tendon(s) of the rotator cuff of right shoulder, initial encounter documented in this encounter Additional Health Concerns Assessment Noted Time PHQ-9 Depression Total Score: 0 03/28/20 23 9:20 AM EDT documented as of this encounter Care Teams Hot Box Checker Relationship Specialty Start Date End Date Angi Carrasco MD [address] [place] [address] [place] [address] PCP - General Internal Medicine 07/28/14 documented as of this encounter
--- OUTSIDE RECORDS SUMMARY | 2025-09-17 14:32 | XMS_ITS | Encounter Summary ---
Author Organization [employer] Address [address] [facility] 7 [place] [address] Care Team Providers Care Supervisor Prepress Name Role Phone Angi Carrasco MD Primary Care Provider [phone] Reason for Visit * Reason Comments Med Refill Encounter Details Date Type Department Care Team ([facility] st Contact Info) Description 06/21/2024 Refill [facility] MEDICINE [address] [place] [address] Angi Carrasco MD [address] [facility] [place] [address] Strain of muscle(s) and tendon(s) of the [...] Description 10/29/2025 9:00 AM EST Clinical Support [facility] MED & PEDS [address] [place] [address] Lain Dhillon RN [address] [place] [address] documented as of this encounter Visit Diagnoses Diagnosis Strain of muscle(s) and tendon(s) of the rotator cuff of right shoulder, initial encounter documented in this encounter Additional Health Concerns Assessment Noted Time PHQ-9 Depression Total Score: 0 03/28/20 23 9:20 AM EDT documented as of this encounter Care Teams Supervisor Prepress Relationship Specialty Start Date End Date Angi Carrasco MD [address] [place] [address] PCP - General Internal Medicine 07/28/14 documented as of this encounter
--- OUTSIDE RECORDS SUMMARY | 2025-09-17 14:32 | XMS_ITS | Encounter Summary ---
Author Organization [employer] Address [address] [facility] 7t [place] [address] Care Team Providers Care Salon Manager Name Role Phone Angi Carrasco MD Primary Care Provider [phone]- [phone] Encounter Details Date Type Department Care Team (Late st Contact Info) Description 01/13/2025 Orders Only [facility] MEDICINE [address] [place] [address] Angi Carrasco MD 505 [facility] DANIELLE Buckley [id number] Strain of muscle(s) and tendon(s) of the [...] Upcoming Encounters Date Type Department Care Team ([facility] st Contact Info) Description 10/29/2025 9:00 AM EST Clinical Support [facility] MED & PEDS [address] [place] [address] Lian Dhillon, YARELI 505 [place] [address] documented as of this encounter Visit Diagnoses Diagnosis Strain of muscle(s) and tendon(s) of the rotator cuff of right shoulder, initial encounter documented in this encounter Additional Health Concerns Assessment Noted Time PHQ-9 Depression Total Score: 4 12/17/19 25 4:24 PM EST documented as of this encounter Care Teams Salon Manager Relationship Specialty Start Date End Date Angi Carrasco MD 505 [place] [address] PCP - General Internal Medicine 07/28/14 documented as of this encounter
--- OUTSIDE RECORDS SUMMARY | 2025-09-17 14:32 | XMS_ITS | Encounter Summary ---
Author Organization [employer] Address [address] [facility] 7 [place] [address] Care Team Providers Care Field Crop Ii Farmworker Name Role Phone Angi Carrasco MD Primary Care Provider [phone]- [phone] Reason for Visit * Reason Onset Date Comments Med Refill 01/11/2024 Encounter Details Date Type Department Care Team (Late st Contact Info) Description 01/11/[address] [facility] MEDICINE [address] [place] [address] Angi Carrasco MD [facility] [place] [id number] Med Refill Social History Tobacco Use Types Packs/Day Years Used Date Smoking Tobacco: Never Passive Smoke Exposure: Never Smokeless Tobacco: Never Depression Answer Date Recorded Patient Health Questionnaire-9 Score 0 03/28/2023 Housing Stability Answer Date Recorded What is your housing situation today? I have cici adele 08/28/[address] you li [...] [facility] [address] [place] [address] Lian Dhillon, YARELI 505 [place] [address] documented as of this encounter Visit Diagnoses Diagnosis Gastroesophageal reflux disease without esophagitis- Primary Esophageal reflux documented in this encounter Additional Health Concerns Assessment Noted Time PHQ-9 Depression Total Score: 0 03/28/20 23 9:20 AM EDT documented as of this encounter Care Teams Field Crop Ii Farmworker Relationship Specialty Start Date End Date Angi Carrasco MD 505 [place] [address] PCP - General Internal Medicine 07/28/14 documented as of this encounter
--- OUTSIDE RECORDS SUMMARY | 2025-09-17 14:32 | XMS_ITS | Encounter Summary ---
Author Organization [employer] Address 75 [facility] 7 [place] [address] Care Team Providers Care Metal Finish Inspector Name Role Phone Angi Carrasco MD Primary Care Provider [phone]- [phone] Reason for Visit * Reason Onset Date Comments Med Refill 05/06/2024 Encounter Details Date Type Department Care Team (Late st Contact Info) Description 05/06/[address] [facility] MEDICINE [address] [place] [address] Angi Carrasco MD 505 [place] [address] Med Refill Social History Tobacco Use Types [...] 70 % pads To be sent to: [facility] - [place], [place] - [address] [facility] documented in this encounter Plan of Treatment Upcoming Encounters Date Type Department Care Team (Late st Contact Info) Description 10/29/2025 9:00 AM EST Clinical Support [facility] MED & PEDS [address] [place] [address] Lian Dhillon RN 505 [place] [address] documented as of this encounter Visit Diagnoses Not on filedocumented in this encounter Additional Health Concerns Assessment Noted Time PHQ-9 Depression Total Score: 0 03/28/20 23 9:20 AM EDT documented as of this encounter Care Teams Metal Finish Inspector Relationship Specialty Start Date End Date Angi Carrasco MD 505 [place] [address] PCP - General Internal Medicine 07/28/14 documented as of this encounter
--- OUTSIDE RECORDS SUMMARY | 2025-09-17 14:32 | XMS_ITS | Encounter Summary ---
Author Organization [employer] Address [address] [place] [address] 7 [place] [address] Care Team Providers Care Electrical Logging Engineer Name Role Phone Angi Carrasco MD Primary Care Provider [phone] Encounter Details Date Type Department Care Team ([facility] Contact Info) Description 04/14/2023 Orders Only [facility] CH[facility] MED & PEDS 505 [place] [address] Angi Carrasco MD 505 [place] [address] Chronic bilateral low back pain with bilateral [...] Department Care Team (Late Contact Info) Description 10/29/2025 9:00 AM EST Clinical Support [facility] MED & PEDS [address] [place] [address] Lian Dhillon, RN 505 [place] [address] documented as of this encounter Visit Diagnoses Diagnosis Chronic bilateral low back pain with bilateral sciatica- Primary documented in this encounter Additional Health Concerns Assessment Noted Time PHQ-9 Depression Total Score: 0 03/28/20 23 9:20 AM EDT documented as of this encounter Care Teams Electrical Logging Engineer Relationship Specialty Start Date End Date Angi Carrasco MD 505 [place] [address] PCP - General Internal Medicine 07/28/14 documented as of this encounter
--- OUTSIDE RECORDS SUMMARY | 2025-09-17 14:32 | XMS_ITS | Encounter Summary ---
Author Organization [employer] Address 75 [facility] 7t [place] [address] Care Team Providers Care Frame Wirer Name Role Phone Angi Carrasco MD Primary Care Provider [phone] [phone] Encounter Details Date Type Department Care Team (Late st Contact Info) Description 08/04/2025 Orders Only [facility] 230 [place] [address] ProviderLenny MD Social History Tobacco Use Types Packs/Day Years [...] Upcoming Encounters Date Type Department Care Team ([facility] st Contact Info) Description 10/29/2025 9:00 AM EST Clinical Support [facility] CH[facility] MED & PEDS 505 [place] [address] Lian Dhillon RN 505 [place] [address] documented as of this encounter Procedures Procedure Name Priority Date/Time Associated Diagnosis Comments DIABETES EYE EXAM Routine 08/01/2025 2:27 PM EDT documented in this encounter Results * Hm Diabetes Eye Exam (08/01/2025 2:27 PM EDT) us Historical Provider HEALTH MAINTENANCE Final Result documented in this encounter Visit Diagnoses Not on filedocumented in this encounter Additional Health Concerns Assessment Noted Time PHQ-9 Depression Total Score: 0 02/13/20 25 9:01 AM EDT documented as of this encounter Care Teams Frame Wirer Relationship Specialty Start Date End Date Angi Carrasco MD 505 [place] [address] PCP - General Internal Medicine 07/28/14 documented as of this encounter
--- OUTSIDE RECORDS SUMMARY | 2025-09-17 14:32 | XMS_ITS | Encounter Summary ---
Author Organization [employer] Address 75 [facility] 7 [place] [address] Care Team Providers Care Contract Runner Name Role Phone Angi Carrasco MD Primary Care Provider [phone]- [phone] Reason for Visit * Reason Comments Med Refill Encounter Details Date Type Department Care Team ([facility] Contact Info) Description 05/22/2024 Refill [facility] CHC MED & PEDS 505 [place] [address] Angi Carrasco MD [address] [place] [address] Strain of muscle(s) and tendon(s) of the [...] 10/29/2025 9:00 AM EST Clinical Support [facility] MED & PEDS 505 [place] [address] Lian Dhillon RN 505 [place] [address] documented as of this encounter Visit Diagnoses Diagnosis Strain of muscle(s) and tendon(s) of the rotator cuff of right shoulder, initial encounter documented in this encounter Additional Health Concerns Assessment Noted Time PHQ-9 Depression Total Score: 0 03/28/20 23 9:20 AM EDT documented as of this encounter Care Teams Contract Runner Relationship Specialty Start Date End Date Angi Carrasco MD [address] [place] [address] PCP - General Internal Medicine 07/28/14 documented as of this encounter
--- OUTSIDE RECORDS SUMMARY | 2025-09-17 14:32 | XMS_ITS | Encounter Summary ---
Author Organization [employer] Address 75 [facility] 7 [place] [address] Care Team Providers Care Lead Painter Name Role Phone Angi Carrasco MD Primary Care Provider [phone]- [phone] Reason for Visit * Reason Onset Date Comments Nurse Triage 09/16/2025 Encounter Details Date Type Department Care Team (Late st Contact Info) Description 09/16/2025 Telephone [facility] MEDICINE [address] [place] [address] Angi Carrasco MD 505 [place] [address] Nurse Triage Social History Tobacco Use Types Packs/Day Years [...] encounter Miscellaneous Notes * Telephone Encounter - Carolina Park RN - 09/16/2025 10:29 AM EST Telephone call to pt who was seen at [facility] ED yesterday 09/15/25 for acute pain of right shoulder, wasprescribed muscle relaxers, short term narcotic, and advised to wear sling and use heat/ice for pain relief. ER note states if pain persists to follow up with PCP regarding MRI or physical therapy referral. Pt today reports ongoing pain in right shoulder, confirms wearing sling, using heat and ice and medication as prescribed. Applications Intern advised her to wait a few days and see if the pain resolves however pt would like an appt with PCP only. Today she also reports concerns for dark orange urine x2 days (did not discuss at ED). Denies fever, chills, burning sensation, flank pain, nausea, vomiting, urgency, frequency. Scheduled for sick on site 09/17/25 with PCP. Advised her dark urine is typicallya sign of dehydration and to hydrate well. Advised her to continue pain management as advised by PCP. Gave ER precautions, reasons to call back. Pt verbalized understanding, no further questions. Protocol Used: Shoulder Pain (Adult) Protocol-Based Disposition: See in Office or Video Visit Today or Tomorrow Video visit offer not recorded Positive Triage Questions: * Patient wants to be seen * Moderate pain (e.g., interferes with normal activities) and present > 3 days * All higher-acuity triage questions were negative Care Advice Discussed: * Pain Medicines * Reasons To Call Back - Severe pain lasts more than 2 hours after pain medicine - Moderate pain (such as interferes with normal activities) lasts over 3 days - You become worse * Use a Cold Pack for Pain * Heat to Area (Shower Option) * Telephone Encounter - Marybeth Tom - 09/16/2025 9:40 AM EST Patient calling to report ED visit on : Date: 09/15 Hospital: [facility] Seen for: Sholder pain Symptomatic Yes *if yes message should go to Triage Patient advised will forward to team nurse for follow up documented in this encounter Plan of Treatment Upcoming Encounters Date Type Department Care Team ([facility] st Contact Info) Description 10/29/2025 9:00 AM EST Clinical Support [facility] CHC MED & PEDS [address] [place] [address] Lian Dhillon RN 505 [place] [address] documented as of this encounter Visit Diagnoses Not on filedocumented in this encounter Additional Health Concerns Assessment Noted Time PHQ-9 Depression Total Score: 0 02/13/20 25 9:01 AM EDT documented as of this encounter Care Teams Lead Painter Relationship Specialty Start Date End Date Angi Carrasco MD 505 [place] [address] PCP - General Internal Medicine 07/28/14 documented as of this encounter
--- OUTSIDE RECORDS SUMMARY | 2025-09-17 14:32 | XMS_ITS | Encounter Summary ---
Author Organization [employer] Address [address] [facility] 7 [place] [address] Care Team Providers Care Nurse Educator Name Role Phone Angi Carrasco MD Primary Care Provider [phone]- [phone] Reason for Visit * Reason Onset Date Comments Med Refill 05/22/2024 Encounter Details Date Type Department Care Team (Late st Contact Info) Description 05/22/2024 Telephone [facility] MEDICINE [address] [place] [address] Angi Carrasco MD 505 [facility] [place] [id number] Med Refill Social History Tobacco Use Types [...] 100 UNIT/ML pen To be sent to: [facility] - [place], [place] - [address] [place] [address] documented in this encounter Plan of Treatment Upcoming Encounters Date Type Department Care Team (Late st Contact Info) Description 10/29/2025 9:00 AM EST Clinical Support [facility] MED & PEDS [address] [place] [address] Lian Dhillon RN 505 [place] [address] documented as of this encounter Visit Diagnoses Not on filedocumented in this encounter Additional Health Concerns Assessment Noted Time PHQ-9 Depression Total Score: 0 03/28/20 23 9:20 AM EDT documented as of this encounter Care Teams Nurse Educator Relationship Specialty Start Date End Date Angi Carrasco MD 505 [place] [address] PCP - General Internal Medicine 07/28/14 documented as of this encounter
--- OUTSIDE RECORDS SUMMARY | 2025-09-17 14:32 | XMS_ITS | Clinical Summary ---
Author Organization [employer] Address [address] [place] [address] 7 [place] [address] Care Team Providers Care Label Maker Name Role Phone Angi Carrasco MD Primary Care Provider Allergies Active Allergy Reactions Criticality Noted Date [...] in the morning and at bedtime. Active HYDROcodone-aceta minophen ([place]) 5-325 MG tablet take 1 tablet by oral route every 6 hours as needed for pain Active lidocaine (Lidoderm) 5 % patch Place 1 patch on the skin 1 (one) time each day. Active Insulin Syringe-Needle U-100 30G X 5/16 [...] mononitrate ER (Imdur) 30 MG 24 hr tabletIndications :Type 2 diabetes mellitus with hyperglycemia, with long-term current use of insulin ([facility]) Take 1 tablet (30 mg) by mouth in the morning. Do not crush or chew. 30 tablet 024 Active Omeprazole 20 MG tablet delayed-releaseIn dications:Gastroe sophageal reflux disease without esophagitis Take 20 mg by mouth 2 times daily. 60 tablet 024 Active Alcohol Swabs (Alcohol Prep) 70 % padsIndications:S train of muscle(s) and tendon(s) of the rotator cuff of right shoulder, initial encounter USE TO TEST BLOOD SUGAR THREE TIMES DAILY 100 each 5 024 Active Blood Glucose Monitoring Suppl (FreeStyle [place] Lite) w/Device kitIndications:Ty pe 2 diabetes mellitus with hyperglycemia, with long-term current use of insulin ([facility]) 1 kit by Other route 3 times daily. 1 kit 024 Active FREESTYLE LITE test strip TEST BLOOD SUGAR THREE TIMES DAILY 100 strip Active TRUEplus Lancets 33G misc TEST BLOOD SUGAR THREE TIMES DAILY. 100 each 024 Active Easy Touch Pen [place] 31G X 6 MM misc USE FOUR DAILY 100 each 5 024 Active cyclobenzaprine (Flexeril) 10 MG tabletIndications :Lumbar spondylosis TAKE ONE TABLET THREE TIMES DAILY 30 tablet 1 025 Active Lantus SoloStar 100 UNIT/ML penIndications:Ty pe 2 diabetes mellitus with hyperglycemia, with long-term current use of insulin ([facility]),Type 2 diabetes mellitus with unspecified complications (HCC),Type 2 diabetes mellitus with diabetic polyneuropathy ([facility]) INJECT 40 UNITS SUBCUTANEOUSLY EVERY EVENING 15 mL 1 025 Active traMADol (Ultram) 50 MG tabletIndications :Strain of muscle(s) and tendon(s) of the rotator cuff of right shoulder, initial encounter TAKE ONE TABLET EVERY DAY 28 tablet 025 Active methocarbamol (Robaxin) 500 MG tabletIndications :Muscle spasm of back Take 1 tablet (500 mg) by mouth every 6 (six) hours for 10 days. 40 tablet 025 Active naloxone (Narcan) 4 mg/0.1 mL nasal spray Administer 1 spray (4 mg) into affected nostril(s) if needed for opioid reversal. 2 each 1 Active Ozempic, 2 MG/DOSE, 8 MG/3ML solution pen-injectorIndic ations:Type 2 diabetes mellitus with hyperglycemia, with long-term current use of insulin (HCC) INJECT 2 MG'S SUBCUTANEOUSLY EVERY 7 DAYS IN THE ABDOMEN, THIGHS OR UPPER ARM. ROTATE INJECTION SITES. 3 mL 1 025 Active lisinopril 5 MG tabletIndications :Primary hypertension TAKE TWO TABLETS ONCE DAILY 60 tablet 3 025 Active traMADol (Ultram) 50 MG tabletIndications :Strain of muscle(s) and tendon(s) of the rotator cuff of right shoulder, initial encounter TAKE ONE TABLET BY MOUTH ONCE DAILY 28 tablet 025 Active traMADol (Ultram) 50 MG tabletIndications :Chronic right shoulder pain,Rotator cuff impingement syndrome of right shoulder Take 2 tablets (100 mg) by mouth at bedtime for 10 days. 20 tablet 025 2024 Active traMADol (Ultram) 50 MG tabletIndications :Strain of muscle(s) and tendon(s) of the rotator cuff of right shoulder, initial encounter TAKE ONE TABLET BY MOUTH ONCE DAILY 28 tablet 025 2024 Discontinued Active Problems Problem Noted Date Diagnosed Date Long-term current use of opiate analgesic 2024 Carpal tunnel syndrome of left wrist 09/12/2024 Carpal tunnel syndrome of right wrist 09/12/2024 De Quervain's tenosynovitis, right 09/12/2024 Dyspnea on exertion 09/12/2024 Gastroesophageal reflux disease 09/12/2024 Numbness and tingling in both hands 09/12/2024 Type 2 diabetes mellitus 09/12/2024 Hyperlipidemia 09/12/2024 Atherosclerotic cardiovascular disease Essential hypertension 09/12/2024 Obesity due to excess calories 09/12/2024 Obesity 09/12/2024 Severe obesity (BMI 35.0-39.9) with comorbidity ([facility]) 09/12/2024 Lumbar spondylosis 09/12/2024 COVID 12/16/2022 Acute [...] if no improvement call back. Morbid obesity ([facility]) 04/02/2019 Pneumonia of right middle lobe due to infectious organism 10/03/2016 Diabetes mellitus 10/06/2015 Hypercholesterolemia 10/06/2015 Hypertensive disorder 10/06/2015 Encounters Date Type Department Care Team Description 09/17/2025 9:15 AM EST Office Visit [facility]EDS [address] [place] [address] Angi Carrasco MD Chronic right shoulder pain (Primary Dx); Rotator cuff impingement syndrome of right shoulder; Abnormal urine color; Type 2 diabetes mellitus with hyperglycemia, with long-term current use of insulin ([facility]) 09/17/2025 Travel 09/16/2025 Telephone [facility] [address] [place] [address] Angi Carrasco MD Nurse Triage 09/15/2025 Orders Only [facility] External Provider, [facility] 09/01/2025 Refill [facility] [address] [place] [address] Angi Carrasco MD Strain of muscle(s) and tendon(s) of the rotator cuff of right shoulder, initial encounter 08/10/2025 Refill [facility] [address] [place] [address] Angi Carrasco MD Primary hypertension 08/08/2025 Refill [facility] [address] [place] [address] Angi Carrasco MD Type 2 diabetes mellitus with hyperglycemia, with long-term current use of insulin ([facility]) 08/04/2025 Orders Only [facility] [address] [place], [place] [phone] ProviderLenny MD 07/30/2025 Refill [facility] [address] [place] [address] Angi Carrasco MD Strain of muscle(s) and tendon(s) of the rotator cuff of right shoulder, initial encounter 07/25/2025 Telephone [facility] [address] [place] [address] Angi Carrasco MD recall appt 07/24/2025 9:00 AM EDT Clinical Support [facility] [address] [place] [address] Lian Dhillon RN Lumbar spondylosis; Long-term current use of opiate analgesic 07/24/2025 Refill [facility] [address] [place] [address] Lian Dhillon RN 07/24/2025 Travel 07/03/2025 Refill [facility] [address] [place] [address] Sybil Tsai MD Strain of muscle(s) and tendon(s) of the rotator cuff of right shoulder, initial encounter from Last 3 Months Immunizations Immunization Administration Dates Next Due HepB-CpG 05/15/2025 Influenza injectable quadriv alent IIV4 with preservative 08/31/2018 Influenza injectable quadriv alent preservative free 09/22/2023,08/28/2020,10/08/2019 Influenza, seasonal, injecta ble, preservative free 09/12/2024 Pneumococcal Conjugate PCV 20 05/15/2025 Tdap 01/31/2017 Zoster, Recombinant 10/08/2019,01/01/2019 Social History [...] Mass Index 34.11 09/17/2025 9:28 AM EST Plan of Treatment Upcoming Encounters Date Type Department Care Team ([facility] st Contact Info) Description 10/29/2025 9:00 AM EST Clinical Support [facility] MED & PEDS [address] [place] [address] Lian Dhillon, RN [address] [place] [address] Health Maintenance Due Date Last Done Comments CT Colonography 1965 Colonoscopy 1965 Colorectal Cancer Screening 1965 FIT DNA/Cologuard 1965 FIT 1965 FOBT 1965 HIV Screening 1965 Sigmoidoscopy 1965 Hepatitis C Screening 1983 Pap Smear 1986 Cervical Cancer Screening 1995 HPV/Cotest 1995 Diabetes: Urine Protein Screening 11/15/2022 11/15/2021 Lipid Panel 02/05/2025 02/06/2024, 11/15/2021 Hepatitis B Vaccines (2 of 2 - CpG 2-dose series) 06/12/2025 05/15/2025 COVID-19 Vaccine ( season) 2025 10/01/2021, 01/01/2021, 12/04/2020 Influenza Vaccine (#1) 2025 , 09/22/2023, 08/28/2020, Additional history exists SDOH Screening 12/17/2025 12/17/2024 Alcohol/Substance Use Screening 02/12/2026 02/12/2025 Depression Screening 02/12/2026 02/12/2025, 02/13/20 Diabetes: Hemoglobin A1C 03/17/2026 025, 05/15/2025, 12/17/2024, Additional history exists Diabetes: Foot Exam 05/15/2026 05/15/2025 Disability Screening 05/15/2026 05/15/2025 Eye Exam 08/01/2026 08/01/2025, 02/28/2024 Tobacco Screening 09/17/2026 09/17/2025 Mammogram 09/20/2026 09/20/2024, 08/14, 01/02/2020, Additional history exists DTaP/Tdap/Td Vaccines (2 - Td or Tdap) 01/31/2027 01/31/2017 RSV Patients and Patients Aged 60 years or older (1 - 1-dose 75+ series) 2040 Zoster Vaccines Completed 10/08/2019, 01/01/2019 Pneumococcal Vaccine: 50+ Years Completed 05/15/2025 HIB Vaccines Aged Out No longer eligi [...] patient's age to complete this topic Meningococcal B Vaccine Aged Out No l onger eligible based on patient's age to complete [...] 09/17/2025 10:28 AM EST Abnormal urine color XR SHOULDER 2+ VIEWS RIGHT Routine 09/15/2025 12:30 PM EST HM DIABETES EYE EXAM Routine 08/01/2025 2:27 PM EDT POCT TESSA-14 URINE DRUG SCREEN Routine 07/24/2025 9:04 AM EDT Lumbar spondylosis BI MAMMOGRAM SCREENING TOMOSYNTHESIS BILATERAL Routine 09/20/2024 3:03 PM EST LIPID PANEL, STANDARD Routine 02/06/2024 7:35 AM EDT ALBUMIN, RANDOM URINE W/CREATININE Routine 11/15/2021 8:50 AM EST from Last 3 Months or Most Recently Relevant to Health Maintenance Results * POCT Glucose (09/17/2025 10:32 AM EST) Glucose Blood, POC 104 60 - 200 mg/dL QC Media Lot # [id number] Lot# Expiration Date Comment:fasting Blood Capillary blood specimen / Unknown 09/17/2025 10:32 AM EST Angi Carrasco MD POINT OF CARE TEST ENTER/ED IT ORDERABLES Final Result * POCT Hgb A1c (09/17/2025 10:31 AM EST) Hemoglobin A1C 5.5 4.0 - 5.7 % QC Media Lot # [id number] Lot# Expiration Date [id number] Blood 09/17/2025 10:3 1 AM EST Angi Carrasco MD POINT OF CARE TEST ENTER/ED IT ORDERABLES Final Result * (ABNORMAL) POCT Urinalysis (09/17/2025 10:28 AM EST) Color, UA [place] Clarity, UA Clear Glucose, UA Negative Bilirubin, UA Moderate Ketones, UA Positive Comment:40 Spec Grav, UA 1.030 Blood, UA Positive(A) Negative, None Detected Comment:trace-intact pH, UA 5.5 Protein, UA Trace Urobilinogen, UA 0.2 Leukocytes, UA Trace Negative, Rare, Trace Nitrite, UA Negative Negative, None Detected Appearance, UA clear QC Media Lot # [id number] Lot# Expiration Date [id number] Urine (Urine, Random) 09/17/2025 10:28 AM EST Angi Carrasco MD POINT OF CARE TEST ENTER/ED IT ORDERABLES Final Result * XR Shoulder 2+ Views Right (09/15/2025 12:30 PM EST) Anatomical Region Laterality Modality Upper Extremities, Shoulder Right Radi ographic Imaging 09/15/2025 12:3 0 PM EST Narrative 09/15/2025 12:45 PM EST [place] [address] XRay Report Signed Patient: Brynn Ardon MR#: [id number] 85 : 1965 Acct:[id number] Age/Sex: 59 / F ADM Date: 09/15/25 Loc: .ED Attending Dr: Ordering Physician: Lilliana Ford Date of Service: 09/15/25 Procedure(s): XR shoulder RT min 2V Accession Number(s): [id number] cc: Angi Carrasco MD; Lilliana Ford Reason [...] 09/15/25 1242 DD/ 1230 TD/TT: 09/15/25 1235 Blast Setter: Procedure Note Anh, Image - 09/15/[address] [address] XRay Report Signed Patient: Brynn Ardon EMR#: [id number] 85 : 1965Acct:[id number] Age/Sex: 59 / FADM Date: 09/15/25 Loc: HO.ED Attending Dr: Ordering Physician: Lilliana Ford Date of Service: 09/15/25 Procedure(s): XR shoulder RT min 2V Accession Number(s): [id number] cc: Angi Carrasco MD; Lilliana Ford Reason [...] by: Richard Gambino MD 09/15/2025 12:42 PM [facility] Dictated By: Richard Gambino MD Signed By: <Electronically signed by Richard Gambino MD in OV> 09/15/25 1242 DD/ 1230 TD/TT: 09/15/25 1235 Blast Setter: [facility] External Provider IMG XR PROCEDURES Edited Result - Final * Hm Diabetes Eye Exam (08/01/2025 2:27 PM EDT) Historical Provider HEALTH MAINTENANCE Final Result * POCT TESSA-14 Urine Drug Screen (07/24/2025 9:04 AM EDT) THC Negative Negative Cocaine Screen, Urine Negative Negative Opiate Screen, Urine Negative Negative Methamphetamine Screen Urine Negative Negative Amphetamine Screen, Urine Negative Negative Benzodiazepines Screen, Urine Negative Negative Barbiturate Screen, Urine Negative Negative Methadone Screen, Urine Negative Negative Buprenophine Screen, Urine Negative Negative TCA, Urine Negative Negative MDMA Urine Negative Negative ng/mL Oxycodone Screen, Urine Negative Negative Phencyclidine (PCP), Urine Negative Negative Propoxyphene, Urine Negative Negative Fentanyl, Urine Negative Negative Urine Urine specimen obtained by clean catch procedure / Unknown 07/24/2025 9:04 AM EDT Narrative Lian Dhillon RN - 07/24/2025 9:04 AM EDT Internal Pass Control Lot# [id number] Exp: 09-12-26 Angi Carrasco MD POINT OF CARE TEST ENTER/ED IT ORDERABLES Final Result * BI Mammogram Screening Tomosynthesis Bilateral (09/20/2024 3:03 PM EST) Anatomical Region Laterality Modality Breast Bilateral Mammography 09/20/2024 3:03 PM EST Narrative 10/01/2024 9:17 AM EST [facility] [address] [place] [address] Mammography Report Signed Patient: Brynn Ardon MR#: [id number] 85 : 1965 Acct:[id number] Age/Sex: 58 / F ADM Date: 09/20/24 Loc: HO.MAMMO Attending Dr: Angi Carrasco MD Ordering Physician: Angi Carrasco MD Results: 1 Negative Date of Service: 09/20/24 Follow Up: 1 Year From Orig ina Mammogram Procedure(s): MM tomosynthesis screening BI Accession Number(s): [id number] cc: Angi Carrasco MD EXAMINATION: MM SCREENING [...] their next mammogram. Electronically signed by: Laury Mosnon DO 10/01/2024 09:13 AM EST Dictated By: Laury Monson DO Signed By: <Electronically signed by Laury Monson DO in OV> 10/01/24 0913 DD/ 1503 TD/TT: 09/20/24 1521 Blast Setter: Procedure Note Donotuseinterpreter, Image - [facility] [address] [place], [place] [address] Mammography Report Signed Patient: Brynn Ardon EMR#: [id number] 85 : 1965Acct:[id number] Age/Sex: 58 / FADM Date: 09/20/24 Loc: HO.MAMMO Attending Dr: Angi Carrasco MD Ordering Physician: Angi Carrasco MDResults: 1 Negative Date of Service: 09/20/24Follow Up: 1 Year From Orig ina Mammogram Procedure(s): MM tomosynthesis screening BI Accession Number(s): [id number] cc: Angi Carrasco MD EXAMINATION: MM SCREENING [...] 10/01/24 0913 DD/ 1503 TD/TT: 09/20/24 1521 Blast Setter: us Angi Carrasco MD IMG BI PROCEDURES Final Res ult * (ABNORMAL) Lipid Panel, Standard (02/06/2024 7:35 AM EDT) Triglycerides 98 <150 mg/dL [facility] Comment:Desirable Triglyceri de: less than 150 mg/dLBorderline High Triglyceride 150-199 mg/dLHigh Triglyceride: 200-499 mg/dLVery High Triglyceride: greater than or equal to 5OO mg/dL Cholesterol 245(H) <200 mg/dL [facility] Comment:Desirable Cholestero l: less than 200 mg/dLBorderline High Cholesterol: 200-239 mg/dLHigh Cholesterol: greater than 239 mg/dL LDL Cholesterol Calculated 172(H) <100 mg/dL [facility] Comment:Desirable LDL: less than 100 mg/dLNear Optimal/Above Optimal LDL: 110- 129 mg/dLBorderline High LDL: 130-159 mg/dLHigh LDL: 160-189 mg/dLVery High LDL: greater than or equal to 190 mg/dL HDL Cholesterol 54 >40 mg/dL [facility] Comment:Desirable HDL: great er than 40 mg/dL Note: This HDL assay may give artificially low results in patients with liver disease. 02/06/2024 7:35 AM EDT 02/06/2024 7:38 AM EDT us Generic External Data Provider LAB BLOOD ORDERAB LES Final Result [facility] [address] [place] [address] [phone] * ALBUMIN, RANDOM URINE W/CREATININE (11/15/2021 8:50 AM EST) Microalbumin Urine 0.5 See Note: mg/dL [facility] Comment: Reference Range: Reference Range Not established Microalb/Creat Ratio 5 <30 mcg/mg creat [facility] Comment: The ADA defines abnormalities in albumin excretion as follows: Albuminuria Category Result (mcg/mg creatinine) Normal to Mildly increased <30 Moderately increased 30-299 Severely increased > OR = 300 The ADA recommends that at least two of three specimens collected within a 3-6 month period be abnormal before considering a patient to be within a diagnostic category. Creatinine, Urine 99 20 - 275 mg/dL [facility] 11/15/2021 8:50 AM EST us Angi Carrasco MD LAB URINE ORDERABLES Final Result [facility] [address] from Last 3 Months or Most Recently Relevant to Health Maintenance Insurance [facility] , [address] [place] [address] Care Teams Label Maker Relationship Specialty Start Date End Date Angi Carrasco MD [address] [place] [address] [place] [address] PCP - General Internal Medicine 07/28/14
== END 2025-09-17 11:52 | disposition home or self-care (01) ==
LOC: HO.CHCLNP 11:51
PROVIDERS: Visit Provider Internal Medicine
DX: R39.89 Other symptoms and signs involving the genitourinary system (principal)
CPT/HCPCS: 87086

== ENCOUNTER 2025-10-29 08:37 | Outpatient (REF) | payer OTHER, SELFPAY ==
--- OUTSIDE RECORDS SUMMARY | 2025-10-29 08:55 | XMS_ITS | Encounter Summary ---
Author Organization [employer] Address [address] [facility] 7 [place] [address] Care Team Providers Care Pairer Inspector Name Role Phone Angi Carrasco MD Primary Care Provider [phone] Reason for Visit * Reason Comments Med Refill Encounter Details Date Type Department Care Team ([facility] Contact Info) Description 05/22/2024 Refill [facility] [address] [place] [address] Angi Carrasco MD [address] [place] [address] Strain of muscle(s) and tendon(s) of the [...] Description 10/29/2025 9:00 AM EST Clinical Support [facility] MED [facility] PEDS [address] [place] [address] Lian Dhillon RN [address] [place] [address] Arrived documented as of this encounter Visit Diagnoses Diagnosis Strain of muscle(s) and tendon(s) of the rotator cuff of right shoulder, initial encounter documented in this encounter Additional Health Concerns Assessment Noted Time PHQ-9 Depression Total Score: 0 03/28/20 23 9:20 AM EDT documented as of this encounter Care Teams Pairer Inspector Relationship Specialty Start Date End Date Angi Carrasco MD [address] [place] [address] PCP - General Internal Medicine 07/28/14 documented as of this encounter
--- OUTSIDE RECORDS SUMMARY | 2025-10-29 08:55 | XMS_ITS | Encounter Summary ---
Author Organization [employer] Address [address] [place] [address] Care Team Providers Care Ingot Buggy Operator Name Role Phone Angi Carrasco MD Primary Care Provider Encounter Details Date Type Department Care Team (Late Contact Info) Description 01/27/2023 Orders Only [facility] [address] [place] [address] Angi Carrasco MD [address] [place] [address] Epigastric pain; Strain of muscle(s) and tendon(s) [...] Description 10/29/2025 9:00 AM EST Clinical Support [facility] [address] [place], [place] [phone] Lian Dhillon RN [address] [place], [place] [phone] Arrived documented as of this encounter Visit Diagnoses Diagnosis Epigastric pain Abdominal pain, epigastric Strain of muscle(s) and tendon(s) of the rotator cuff of right shoulder, initial encounter documented in this encounter Care Teams Ingot Buggy Operator Relationship Specialty Start Date End Date Angi Carrasco MD [address] [place] [address] PCP - General Internal Medicine 07/28/14 documented as of this encounter
--- OUTSIDE RECORDS SUMMARY | 2025-10-29 08:55 | XMS_ITS | Encounter Summary ---
Author Organization [employer] Address [address] [place] [address] 7 [place] [address] Care Team Providers Care Correspondence Coordinator Name Role Phone Angi Carrasco MD Primary Care Provider [phone] Encounter Details Date Type Department Care Team ([facility] Contact Info) Description 04/14/2023 Orders Only [facility] & [facility]S [address] [place] [address] Angi Carrasco MD [address] [place] [address] Chronic bilateral low back pain with bilateral [...] Description 10/29/2025 9:00 AM EST Clinical Support [facility] P[facility]S [address] [place] [address] Lian Dhillon, RN [address] [place] [address] Arrived documented as of this encounter Visit Diagnoses Diagnosis Chronic bilateral low back pain with bilateral sciatica- Primary documented in this encounter Additional Health Concerns Assessment Noted Time PHQ-9 Depression Total Score: 0 03/28/20 23 9:20 AM EDT documented as of this encounter Care Teams Correspondence Coordinator Relationship Specialty Start Date End Date Angi Carrasco MD [address] [place] [address] PCP - General Internal Medicine 07/28/14 documented as of this encounter
--- OUTSIDE RECORDS SUMMARY | 2025-10-29 08:55 | XMS_ITS | Encounter Summary ---
Author Organization [employer] Address [address] [facility] 7t [place] [address] Care Team Providers Care Lithographic Press Operator Apprentice Name Role Phone Angi Carrasco MD Primary Care Provider [phone] Encounter Details Date Type Department Care Team (Late st Contact Info) Description 08/04/2025 Orders Only [facility] [address] [place] [address] ProviderLenny MD Social History Tobacco Use Types [...] Upcoming Encounters Date Type Department Care Team ([facility] st Contact Info) Description 10/29/2025 9:00 AM EST Clinical Support [facility] & [facility]S [address] [place] [address] Lian Dhillon RN [address] [place] [address] Arrived documented as of this encounter Procedures Procedure Name Priority Date/Time Associated Diagnosis Comments DIABETES EYE EXAM Routine 08/01/2025 2:27 PM EDT documented in this encounter Results * Diabetes Eye Exam (08/01/2025 2:27 PM EDT) us Historical Provider HEALTH MAINTENANCE Final Result documented in this encounter Visit Diagnoses Not on filedocumented in this encounter Additional Health Concerns Assessment Noted Time PHQ-9 Depression Total Score: 0 02/13/20 25 9:01 AM EDT documented as of this encounter Care Teams Lithographic Press Operator Apprentice Relationship Specialty Start Date End Date Angi Carrasco MD [address] [place] [address] PCP - General Internal Medicine 07/28/14 documented as of this encounter
--- OUTSIDE RECORDS SUMMARY | 2025-10-29 08:55 | XMS_ITS | Encounter Summary ---
Author Organization [employer] Address [address] [facility] [address] [place] [address] Care Team Providers Care Composite Boat Builder Name Role Phone Angi Carrasco MD Primary Care Provider [phone] Reason for Visit * Reason Onset Date Comments Med Refill 05/22/2024 Encounter Details Date Type Department Care Team (Late st Contact Info) Description 05/22/2024 Telephone [facility] [address] [place] [address] Angi Carrasco MD [address] [facility] [place] [id number] Med Refill Social History Tobacco Use Types [...] pen To be sent to: [facility] [place], [place] - [address] [place] [address] documented in this encounter Plan of Treatment Upcoming Encounters Date Type Department Care Team (Late st Contact Info) Description 10/29/2025 9:00 AM EST Clinical Support [facility] MED & PEDS [address] [place] [address] Lian Dhillon RN [address] [place] [address] Arrived documented as of this encounter Visit Diagnoses Not on filedocumented in this encounter Additional Health Concerns Assessment Noted Time PHQ-9 Depression Total Score: 0 03/28/20 23 9:20 AM EDT documented as of this encounter Care Teams Composite Boat Builder Relationship Specialty Start Date End Date Angi Carrasco MD [address] [place] [address] PCP - General Internal Medicine 07/28/14 documented as of this encounter
--- OUTSIDE RECORDS SUMMARY | 2025-10-29 08:55 | XMS_ITS | Encounter Summary ---
Author Organization [employer] Address [address] [facility] [address] [place] [address] Care Team Providers Care Livestock Speculator Name Role Phone Angi Carrasco MD Primary Care Provider [phone]- [phone] Encounter Details Date Type Department Care Team (Late st Contact Info) Description 01/13/2025 Orders Only [facility] MEDICINE [address] [place] [address] Angi Carrasco MD [address] [facility] DANIELLE Buck[place] [id number] Strain of muscle(s) and tendon(s) of the [...] Upcoming Encounters Date Type Department Care Team ([facility] st Contact Info) Description 10/29/2025 9:00 AM EST Clinical Support [facility] MED & PEDS [address] [place] [address] Lian Dhillon RN [address] [place] [address] Arrived documented as of this encounter Visit Diagnoses Diagnosis Strain of muscle(s) and tendon(s) of the rotator cuff of right shoulder, initial encounter documented in this encounter Additional Health Concerns Assessment Noted Time PHQ-9 Depression Total Score: 4 12/17/19 25 4:24 PM EST documented as of this encounter Care Teams Livestock Speculator Relationship Specialty Start Date End Date Angi Carrasco MD [address] [place] [address] PCP - General Internal Medicine 07/28/14 documented as of this encounter
--- OUTSIDE RECORDS SUMMARY | 2025-10-29 08:55 | XMS_ITS | Encounter Summary ---
Author Organization [employer] Address [address] [facility] 7 [place] [address] Care Team Providers Care Coin Machine Mechanic Name Role Phone Angi Carrasco MD Primary Care Provider [phone]- [phone] Reason for Visit * Reason Comments Med Refill Encounter Details Date Type Department Care Team ([facility] Contact Info) Description 12/10/2024 Refill [facility] MED & PEDS [address] [place] [address] Angi Carrasco MD [address] [place] [address] Strain of muscle(s) and tendon(s) of the [...] RN - 12/17/2024 3:50 PM EST .What DIESEL ENGINE ENGINEER Tier would you like this patient to be? Tier 1 = HIGH RISK, Monthly DIESEL ENGINE ENGINEER visits Tier 2 = MODerate RISK, Q3 Month visits Tier 3 = LOW RISK = Q4-6 month visits documented in this encounter Plan of Treatment Upcoming Encounters Date Type Department Care Team ([facility] st Contact Info) Description 10/29/2025 9:00 AM EST Clinical Support [facility] MED & PEDS [address] [place] [address] Lian Dhillon, YARELI [address] [place] [address] Arrived documented as of this encounter Visit Diagnoses Diagnosis Strain of muscle(s) and tendon(s) of the rotator cuff of right shoulder, initial encounter documented in this encounter Additional Health Concerns Assessment Noted Time PHQ-9 Depression Total Score: 0 03/28/20 23 9:20 AM EDT documented as of this encounter Care Teams Coin Machine Mechanic Relationship Specialty Start Date End Date Angi Carrasco MD [address] [place] [address] PCP - General Internal Medicine 07/28/14 documented as of this encounter
--- OUTSIDE RECORDS SUMMARY | 2025-10-29 08:55 | XMS_ITS | Encounter Summary ---
Author Organization [employer] Address [address] [facility] [address] [place] [address] Care Team Providers Care Industrial Technician Name Role Phone Angi Carrasco MD Primary Care Provider +1- [phone] Reason for Visit * Reason Comments Med Refill Encounter Details Date Type Department Care Team ([facility] st Contact Info) Description 06/21/2024 Refill [facility] MEDICINE [address] [place] [address] Angi Carrasco MD 505 [facility] [place] [address] Strain of muscle(s) and tendon(s) of the [...] Description 10/29/2025 9:00 AM EST Clinical Support [facility]C MED & PEDS [address] [place] [address] Lian Dhillon RN [address] [place] [address] Arrived documented as of this encounter Visit Diagnoses Diagnosis Strain of muscle(s) and tendon(s) of the rotator cuff of right shoulder, initial encounter documented in this encounter Additional Health Concerns Assessment Noted Time PHQ-9 Depression Total Score: 0 03/28/20 23 9:20 AM EDT documented as of this encounter Care Teams Industrial Technician Relationship Specialty Start Date End Date Angi Carrasco MD [address] [place] [address] PCP - General Internal Medicine 07/28/14 documented as of this encounter
--- OUTSIDE RECORDS SUMMARY | 2025-10-29 08:55 | XMS_ITS | Encounter Summary ---
Author Organization [employer] Address [address] [facility] [address] [place] [address] Care Team Providers Care Washcoat Wiper Name Role Phone Angi Carrasco MD Primary Care Provider +1- [phone] Reason for Visit * Reason Onset Date Comments Med Refill 01/11/2024 Encounter Details Date Type Department Care Team (Late st Contact Info) Description 01/11/2024 Telephone [facility] MEDICINE [address] [place] [address] Angi [facility]rasco MD [facility] [place] [id number] Med Refill Social History Tobacco Use Types Packs/Day Years Used Date Smoking Tobacco: Never Passive Smoke Exposure: Never Smokeless Tobacco: Never Depression Answer Date Recorded Patient Health Questionnaire-9 Score 0 03/28/2023 Housing Stability Answer Date Recorded What is your housing situation today? I have [facility] 08/28/[address] you [...] Description 10/29/2025 9:00 AM EST Clinical Support [facility] MED & PEDS [address] [place] [address] Lian Dhillon, YARELI [address] [place] [address] Arrived documented as of this encounter Visit Diagnoses Diagnosis Gastroesophageal reflux disease without esophagitis- Primary Esophageal reflux documented in this encounter Additional Health Concerns Assessment Noted Time PHQ-9 Depression Total Score: 0 03/28/20 23 9:20 AM EDT documented as of this encounter Care Teams Washcoat Wiper Relationship Specialty Start Date End Date Angi Carrasco MD [address] [place] [address] PCP - General Internal Medicine 07/28/14 documented as of this encounter
--- OUTSIDE RECORDS SUMMARY | 2025-10-29 08:55 | XMS_ITS | Encounter Summary ---
Author Organization [employer] Address [address] [facility] [address] [place] [address] Care Team Providers Care Mobile Paramedical Examiner Name Role Phone Angi Carrasco MD Primary Care Provider +1- [phone] Reason for Visit * Reason Onset Date Comments Med Refill 05/06/2024 Encounter Details Date Type Department Care Team (Late st Contact Info) Description 05/06/2024 Telephone [facility] MEDICINE [address] [place] [address] Angi Carrasco MD [address] [place] [address] Med Refill Social History Tobacco Use Types [...] 70 % pads To be sent to: [facility] - [place], [place] - [address] [facility] documented in this encounter Plan of Treatment Upcoming Encounters Date Type Department Care Team (Late st Contact Info) Description 10/29/2025 9:00 AM EST Clinical Support [facility] MED & PEDS [address] [place] [address] Lian Dhillon RN [address] [place] [address] Arrived documented as of this encounter Visit Diagnoses Not on filedocumented in this encounter Additional Health Concerns Assessment Noted Time PHQ-9 Depression Total Score: 0 03/28/20 23 9:20 AM EDT documented as of this encounter Care Teams Mobile Paramedical Examiner Relationship Specialty Start Date End Date Angi Carrasco MD [address] [place] [address] PCP - General Internal Medicine 07/28/14 documented as of this encounter
--- OUTSIDE RECORDS SUMMARY | 2025-10-29 08:56 | XMS_ITS | Clinical Summary ---
Author Organization [employer] Address [address] [place] [address] 7[address] [place] [address] Care Team Providers Care Spring Assembler Name Role Phone Angi Carrasco MD Primary [...] morning and at bedtime. Active HYDROcodone-acet aminophen (Bailey) 5-325 MG tablet take 1 tablet by [...] hyperglycemia, with long-term current use of insulin ([facility]) Take 1 tablet (30 mg) by mouth [...] 024 Active Blood Glucose Monitoring Suppl (FreeStyle [place] Lite) w/Device kitIndications:T ype 2 diabetes mellitus with hyperglycemia, with long-term current use of insulin ([facility]) 1 kit by Other route 3 times daily. 1 kit 024 Active FREESTYLE LITE test strip TEST BLOOD SUGAR THREE TIMES DAILY 100 strip 024 Active TRUEplus Lancets [facility]G [facility] TEST BLOOD SUGAR THREE TIMES DAILY. 100 each 024 Active Easy Touch Pen [place] 31G X 6 MM misc USE FOUR DAILY 100 each 5 024 Active Lantus SoloStar 100 UNIT/ML penIndications:T ype 2 diabetes mellitus with hyperglycemia, with long-term current use of insulin ([facility]),Type 2 diabetes mellitus with unspecified complications ([facility]),Type 2 diabetes mellitus with diabetic polyneuropathy ([facility]) INJECT 40 UNITS SUBCUTANEOUSLY EVERY EVENING 15 mL 1 025 Active traMADol (Ultram) 50 MG tabletIndication s:Strain of muscle(s) and tendon(s) of the rotator cuff of right shoulder, initial encounter TAKE ONE TABLET EVERY DAY 28 tablet 025 Active methocarbamol (Robaxin) 500 MG tabletIndication s:Muscle spasm of back Take 1 tablet (500 mg) by mouth every 6 (six) hours for 10 days. 40 tablet Active naloxone (Narcan) 4 mg/0.1 mL nasal spray Administer 1 spray (4 mg) into affected nostril(s) if needed for opioid reversal. 2 each 1 Active lisinopril 5 MG tabletIndication s:Primary hypertension TAKE TWO TABLETS ONCE DAILY 60 tablet 3 10/21/20 25 10:44 AM EST 025 Active Ozempic, 2 MG/DOSE, 8 MG/3ML solution pen-injectorIndi cations:Type 2 diabetes mellitus with hyperglycemia, with long-term current use of insulin (HCC) INJECT 2 MG'S SUBCUTANEOUSLY EVERY 7 DAYS IN THE ABDOMEN, THIGHS OR UPPER ARM. ROTATE INJECTION SITES. 3 mL 1 10/13/20 25 11:16 AM EST 025 Active traMADol (Ultram) 50 MG tabletIndication s:Strain of muscle(s) and tendon(s) of the rotator cuff of right shoulder, initial encounter Take 1 tablet (50 mg) by mouth Once per day. 28 tablet 10/27/20 25 3:15 PM EST 025 Active cyclobenzaprine (Flexeril) 10 MG tabletIndication s:Lumbar spondylosis Take 1 tablet (10 mg) by mouth 3 times daily. 30 tablet 1 10/21/20 25 10:44 AM EST 025 Active cyclobenzaprine (Flexeril) 10 MG tabletIndication s:Lumbar spondylosis TAKE ONE TABLET THREE TIMES DAILY 30 tablet 1 025 2024 Discontinued(R eorder (will not trigger notification to Pharmacy)) Ozempic, 2 MG/DOSE, 8 MG/3ML solution pen-injectorIndi cations:Type 2 diabetes mellitus with hyperglycemia, with long-term current use of insulin (HCC) INJECT 2 MG'S SUBCUTANEOUSLY EVERY 7 DAYS IN THE ABDOMEN, THIGHS OR UPPER ARM. ROTATE INJECTION SITES. 3 mL 1 025 2024 Discontinued traMADol (Ultram) 50 MG tabletIndication s:Strain of muscle(s) and tendon(s) of the rotator cuff of right shoulder, initial encounter TAKE ONE TABLET BY MOUTH ONCE DAILY 28 tablet 025 2024 Discontinued(R eorder (will [...] 09/12/2024 Severe obesity (BMI 35.0-39.9) with comorbidity (CMS/[facility]) 09/12/2024 Lumbar spondylosis 09/12/2024 COVID 12/16/2022 Acute [...] if no improvement call back. Morbid obesity (CMS/[facility]) 04/02/2019 Pneumonia of right middle lobe due to infectious organism 10/03/2016 Diabetes mellitus 10/06/2015 Hypercholesterolemia 10/06/2015 Hypertensive disorder 10/06/2015 Encounters Date Type Department Care Team Description 10/29/2025 9:00 AM EST Clinical Support [facility] [address] [place] [address] Lian Dhillon, YARELI Arrived 10/29/2025 Travel 10/20/2025 Refill [facility] [address] [place] [address] Angi Carrasco MD Lumbar spondylosis 10/07/2025 Refill [facility] [address] [place] [address] Lian Dhillon, RN Strain of muscle(s) and tendon(s) of the rotator cuff of right shoulder, initial encounter 10/04/2025 Refill [facility] [address] [place] [address] Angi Carrasco MD Type 2 diabetes mellitus with hyperglycemia, with long-term current use of insulin ([facility]) 09/23/2025 Telephone [employer] [address] [place] [phone] Angi Carrasco MD mri shoulder order 09/19/2025 Results Follow-Up [facility] [address] [place] [address] Sharonda James RN POCT Glucose, POCT Hgb A1c, POCT Urinalysis, Culture, Urine, Routine 09/17/2025 9:15 AM EST Office Visit [facility] [address] [place] [address] Angi Carrasco MD Chronic right shoulder pain (Primary Dx); Rotator cuff impingement syndrome of right shoulder; Abnormal urine color; Type 2 diabetes mellitus with hyperglycemia, with long-term current use of insulin (HCC) 09/17/2025 Travel 09/16/2025 Telephone [facility] [address] [place] [address] [phone] Angi Carrasco MD Nurse Triage 09/15/2025 Orders Only [facility] External Provider, [facility] 09/01/2025 Refill [facility] [address] [place] [address] Angi Carrasco MD Strain of muscle(s) and tendon(s) of the rotator cuff of right shoulder, initial encounter 08/10/2025 Refill [facility] [address] [place] [address] Angi Carrasco MD Primary hypertension 08/08/2025 Refill [facility] [address] [place] [address] Angi Carrasco MD Type 2 diabetes mellitus with hyperglycemia, with long-term current use of insulin ([facility]) 08/04/2025 Orders Only [facility] Information Management [address] [place] [address] [phone] ProviderLenny MD 07/30/2025 Refill [facility] [address] [place] [address] Angi Carrasco MD Strain of muscle(s) and [...] Upcoming Encounters Date Type Department Care Team ([facility] st Contact Info) Description 10/29/2025 9:00 AM EST Clinical Support [facility] [address] [place] [address] Lian Dhillon, RN [address] [place] [address] Arrived Health Maintenance Due Date Last Done Comments CT Colonography 1965 Colonoscopy 1965 Colorectal Cancer Screening 1965 FIT DNA/Cologuard 1965 FIT 1965 FOBT 1965 HIV Screening 1965 Sigmoidoscopy 1965 Hepatitis C Screening 1983 Pap Smear 1986 Cervical Cancer Screening 1995 HPV/Cotest 1995 RSV Patients and Patients Aged 60 years or older (1 - Risk 50-74 years 1-dose series) 2015 Diabetes: Urine Protein Screening 11/15/2022 11/15/2021 Lipid Panel 02/05/2025 02/06/2024, 11/15/2021 Hepatitis B Vaccines (2 of 2 - CpG 2-dose series) 06/12/2025 05/15/2025 COVID-19 Vaccine ( season) 2025 10/01/2021, 01/01/2021, 12/04/2020 Influenza Vaccine (#1) 2025 , 09/22/2023, 08/28/2020, Additional history exists SDOH Screening 12/17/2025 12/17/2024 Alcohol/Substance Use Screening 02/12/2026 02/12/2025 Depression Screening 02/12/2026 02/12/2025, 02/13/20 25 Diabetes: Hemoglobin A1C 03/17/2026 025, 05/15/2025, 12/17/2024, Additional history exists Diabetes: Foot Exam 05/15/2026 05/15/2025 Disability Screening 05/15/2026 05/15/2025 Eye Exam 08/01/2026 08/01/2025, 02/28/2024 Tobacco Screening 09/17/2026 09/17/2025 Mammogram 09/20/2026 09/20/2024, 08/14, 01/02/2020, Additional history exists DTaP/Tdap/Td Vaccines (2 - Td or Tdap) 01/31/2027 01/31/2017 Zoster Vaccines Completed 10/08/2019, 01/01/2019 Pneumococcal Vaccine: [...] on patient's age to complete this topic Goals Goal Patient Goal Type Associated Problems Recent Progress Patient-Stated? Author Help patients manage their type 2 diabetes Care Plan Help patients manage their type 2 diabetes No Lian Dhillon RN Weekly blood pressure task Care Plan Weekly blood pressure task No Lian Dhillon RN Help patients manage their type 2 diabetes Care Plan Help patients manage their type 2 diabetes No Lian Dhillon RN Patient has chronic kidney disease Care Plan Patient has chronic kidney disease No Lian Dhillon RN Weekly blood pressure task Care Plan Weekly blood pressure task No Lian Dhillon RN Patient has chronic kidney disease Care Plan Patient has chronic kidney disease No Lian Dhillon RN Weekly blood pressure task Care Plan Weekly blood pressure task No Edie Rollins LPN Weekly blood pressure task Care Plan Weekly blood pressure task No Edie Rollins LPN Patient has chronic kidney disease Care Plan Patient has chronic kidney disease No Edie Rollins LPN Patient has chronic kidney disease Care Plan Patient has chronic kidney disease No Edie Rollins LPN Weekly blood pressure task Care Plan Weekly blood pressure task No Lian Dhillon RN Weekly blood pressure task Care Plan Weekly blood pressure task No Lian Dhillon RN Patient has chronic kidney disease Care Plan Patient has chronic kidney disease No Lian Dhillon RN Patient has chronic kidney disease Care Plan Patient has chronic kidney disease No Lian Dhillon RN Procedures Procedure Name Priority Date/Time Associated Diagnosis Comments POCT GLUCOSE Routine 09/17/2025 10:32 AM EST Type 2 diabetes mellitus with hyperglycemia, with long-term current use of insulin (HCC) POCT GLYCATED HEMOGLOBIN, TOTAL Routine 09/17/2025 10:31 AM EST Type 2 diabetes mellitus with hyperglycemia, with long-term current use of insulin (HCC) POCT URINALYSIS DIPSTICK Routine 09/17/2025 10:28 AM EST Abnormal urine color CULTURE, URINE, ROUTINE Routine 09/17/2025 12:00 AM EST Abnormal urine color XR SHOULDER 2+ VIEWS RIGHT Routine 09/15/2025 12:30 PM EST HM DIABETES EYE EXAM Routine 08/01/2025 2:27 PM EDT BI MAMMOGRAM SCREENING TOMOSYNTHESIS BILATERAL Routine 09/20/2024 [...] Media Lot # [id number] Lot# Expiration Date ,027 Blood 09/17/2025 10:3 1 AM EST us Angi Carrasco MD POINT OF CARE TEST ENTER/ED IT ORDERABLES Final Result * (ABNORMAL) POCT Urinalysis (09/17/2025 10:28 AM EST) Color, UA [place] Clarity, UA Clear Glucose, UA Negative Bilirubin, UA Moderate Ketones, UA Positive Comment:40 Spec Grav, UA 1.030 Blood, UA Positive(A) Negative, None Detected Comment:trace-intact pH, UA 5.5 Protein, UA Trace Urobilinogen, UA 0.2 Leukocytes, UA Trace Negative, Rare, Trace Nitrite, UA Negative Negative, None Detected Appearance, UA clear QC Media Lot # [id number] Lot# Expiration Date [id number] Urine (Urine, Random) 09/17/2025 10:28 AM EST us Angi Carrasco MD POINT OF CARE TEST ENTER/ED IT ORDERABLES Final Result * Culture, Urine, Routine (09/17/2025 12:00 AM EST) Urine Urine specimen obtained by clean catch procedure / Unknown 09/17/2025 09/17/2025 Comment:UACC Narrative [facility] - 09/18/2025 11:39 AM EST Urine Culture Report Result Urine Culture > 100,000 cfu/ml Urine Culture Mixed bacterial kaley characteristic of Urine Culture urogenital contamination. Specimen Source: Urine clean catch Angi Carrasco MD LAB MICROBIOLOGY - GENERAL ORDERABLES Final Result [facility] [address] [place] [phone] * XR Shoulder 2+ Views Right (09/15/2025 12:30 PM EST) Anatomical Region Laterality Modality Upper Extremities, Shoulder Right Radi ographic Imaging 09/15/2025 12:3 0 PM EST Narrative 09/15/2025 12:45 PM EST [address] [address] XRay Report Signed Patient: Brynn Ardon MR#: [id number] 85 : 1965 Acct:[id number] Age/Sex: 59 / F ADM Date: 09/15/25 Loc: HO.ED Attending Dr: Ordering Physician: Lilliana Ford Date of Service: 09/15/25 Procedure(s): XR shoulder RT min 2V Accession Number(s): [id number] cc: Angi Carrasco MD; Lilliana Ford Reason [...] by: Richard Gambino MD 09/15/2025 12:42 PM [facility] Dictated By: Richard Gambino MD Signed By: <Electronically signed by Richard Gambino MD in OV> 09/15/25 1242 DD/ 1230 TD/TT: 09/15/25 1235 Manager Of Software Development: Procedure Note Donotuseinterpreter, Image - 09/15/[address] [address] XRay Report Signed Patient: Brynn Ardon EMR#: [id number] 85 : 1965Acct:[id number] Age/Sex: 59 / FADM Date: 09/15/25 Loc: HO.ED Attending Dr: Ordering Physician: Lilliana Ford Date of Service: 09/15/25 Procedure(s): XR shoulder RT min 2V Accession Number(s): [id number] cc: Angi Carrasco MD; Lilliana Ford Reason [...] 09/15/25 1242 DD/ 1230 TD/TT: 09/15/25 1235 Manager Of Software Development: [facility] External Provider IMG XR PROCEDURES Edited Result - Final * Diabetes Eye Exam (08/01/2025 2:27 PM EDT) Historical Provider HEALTH MAINTENANCE Final Result * BI Mammogram Screening Tomosynthesis Bilateral (09/20/2024 3:03 PM EST) Anatomical Region Laterality Modality Breast Bilateral Mammography 09/20/2024 3:03 PM EST Narrative 10/01/2024 9:17 AM EST [address] [place] [address] Mammography Report Signed Patient: Brynn Ardon MR#: [id number] 85 : 1965 Acct:[id number] Age/Sex: 58 / F ADM Date: 09/20/24 Loc: HO.MAMMO Attending Dr: Angi Carrasco MD Ordering Physician: Angi Carrasco MD Results: 1 Negative Date of Service: 09/20/24 Follow Up: 1 Year From Orig ina Mammogram Procedure(s): MM tomosynthesis screening BI Accession Number(s): [id number] cc: Angi Carrasco MD EXAMINATION: MM SCREENING [...] 10/01/24 0913 DD/ 1503 TD/TT: 09/20/24 1521 Manager Of Software Development: Procedure Note Donotuseinterpreter, Image - 10/01/[facility] [address] [place], [place] [address] Mammography Report Signed Patient: Brynn Ardon EMR#: [id number] 85 : 1965Acct:[id number] Age/Sex: 58 / FADM Date: 09/20/24 Loc: HO.MAMMO Attending Dr: Angi Carrasco MD Ordering Physician: Angi Carrasco MDResults: 1 Negative Date of Service: 09/20/24Follow Up: 1 Year From Orig ina Mammogram Procedure(s): MM tomosynthesis screening BI Accession Number(s): [id number] cc: Angi Carrasco MD EXAMINATION: MM SCREENING [...] Laury Monson DO 10/01/2024 09:13 AM EST RP Dictated By: Laury Monson DO Signed By: <Electronically signed by Laury Monson DO in OV> 10/01/24 0913 DD/ 1503 TD/TT: 09/20/24 1521 Manager Of Software Development: us Angi Carrasco MD IMG BI PROCEDURES Final Res ult * (ABNORMAL) Lipid Panel, Standard (02/06/2024 7:35 AM EDT) Triglycerides 98 <150 mg/dL [facility] Comment:Desirable Triglyceri de: less than 150 mg/dLBorderline High Triglyceride 150-199 mg/dLHigh Triglyceride: 200-499 mg/dLVery High Triglyceride: greater than or equal to 5OO mg/dL Cholesterol 245(H) <200 mg/dL [facility] Comment:Desirable Cholestero l: less than 200 mg/dLBorderline High Cholesterol: 200-239 mg/dLHigh Cholesterol: greater than 239 mg/dL LDL Cholesterol Calculated 172(H) <100 mg/dL [facility] Comment:Desirable LDL: less than 100 mg/dLNear Optimal/Above Optimal LDL: 110- 129 mg/dLBorderline High LDL: 130-159 mg/dLHigh LDL: 160-189 mg/dLVery High LDL: greater than or equal to 190 mg/dL HDL Cholesterol 54 >40 mg/dL [facility] Comment:Desirable HDL: great er than 40 mg/dL Note: This HDL assay may give artificially low results in patients with liver disease. 02/06/2024 7:35 AM EDT 02/06/2024 7:38 AM EDT us Generic External Data Provider LAB BLOOD ORDERAB LES Final Result [facility] [address] [place] [address] [phone] * ALBUMIN, RANDOM URINE W/CREATININE (11/15/2021 [...] Carrasco MD LAB URINE ORDERABLES Final Result [facility] [address] from Last 3 Months or Most Recently Relevant to Health Maintenance Additional Health Concerns Active Problems Noted Date Diagnosed Date Help patients manage their type 2 diabetes 10/07 Weekly blood pressure task 10/07/2025 Help patients manage their type 2 diabetes 10/07 Patient has chronic kidney disease 10/07/2025 Weekly blood pressure task 10/07/2025 Patient has chronic kidney disease 10/07/2025 Weekly blood pressure task 10/20/2025 Weekly blood pressure task 10/20/2025 Patient has chronic kidney disease 10/20/2025 Patient has chronic kidney disease 10/20/2025 Weekly blood pressure task 10/29/2025 Weekly blood pressure task 10/29/2025 Patient has chronic kidney disease 10/29/2025 Patient has chronic kidney disease 10/29/2025 Insurance , [address] [place] [address] Care Teams Spring Assembler Relationship Specialty Start Date End Date Angi Carrasco MD [address] [place] [address] DANIELLE [id number] PCP - General Internal Medicine 07/28/14
--- OUTSIDE RECORDS SUMMARY | 2025-10-29 08:56 | XMS_ITS | Encounter Summary ---
Author Organization [employer] Address [address] [place] [address] Care Team Providers Care Pharmacoepidemiologist Name Role Phone Angi Carrasco MD Primary Care Provider Reason for Visit * Reason Comments Med Refill Encounter Details Date Type Department Care Team (Late st Contact Info) Description 07/18/2023 Refill [facility] [address] [place] [address] Beau Hester MD [address] [place] [address] Strain of muscle(s) and tendon(s) of the [...] Description 10/29/2025 9:00 AM EST Clinical Support [facility] [address] [place], [place] [phone] Lian Dhillon RN [address] [place] [address] Arrived documented as of this encounter Visit Diagnoses Diagnosis Strain of muscle(s) and tendon(s) of the rotator cuff of right shoulder, initial encounter documented in this encounter Additional Health Concerns Assessment Noted Time PHQ-9 Depression Total Score: 0 03/28/20 23 9:20 AM EDT documented as of this encounter Care Teams Pharmacoepidemiologist Relationship Specialty Start Date End Date Angi Carrasco MD [address] [place] [address] [place] [phone] PCP - General Internal Medicine 07/28/14 documented as of this encounter
--- OUTSIDE RECORDS SUMMARY | 2025-10-29 08:56 | XMS_ITS | Encounter Summary ---
Author Organization [employer] Address [address] [facility] 7t [place] [address] Care Team Providers Care Obstetrics Teacher Name Role Phone Angi Carrasco MD Primary Care Provider [phone] Encounter Details Date Type Department Care Team (Latest Contact Info) Description 10/29/2025 Travel Social History Tobacco Use Types Packs/Day [...] Upcoming Encounters Date Type Department Care Team ([facility] st Contact Info) Description 10/29/2025 9:00 AM EST Clinical Support [facility] [address] [place] [address] Lian Dhillon RN [address] [place] [address] Arrived documented as of this encounter Goals Goal Patient Goal Type Associated Problems [...] chronic kidney disease No Lian Dhillon RN documented as of this encounter Visit Diagnoses Not on filedocumented in this encounter Additional Health Concerns Active Problems Noted Date [...] 10/29/2025 Patient has chronic kidney disease 10/29/2025 Assessment Noted Time PHQ-9 Depression Total Score: 0 02/13/20 9:01 AM EDT documented as of this encounter Care Teams Obstetrics Teacher Relationship Specialty Start Date End Date Angi Carrasco MD [address] [place] [phone] PCP - General Internal Medicine 07/28/14 documented as of this encounter
--- OUTSIDE RECORDS SUMMARY | 2025-10-29 09:00 | XMS_ITS | Encounter Summary ---
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 Details Date Type Department Care Team ([facility] Contact Info) Description 10/29/2025 9:00 AM EST Clinical Support [facility] [address] [place] [address] Lian Dhillon, RN [address] [place], [place] Arrived Social History Tobacco Use Types Packs/Day Years [...] as of this encounter Plan of Treatment Not on file documented as of this encounter Goals Goal [...] Plan Patient has chronic kidney disease No Lain Dhillon RN Patient has chronic kidney disease [...] documented as of this encounter Care Teams Forge Press Operator Relationship Specialty Start Date End Date Angi Carrasco MD [address] [place] [phone] PCP - General Internal Medicine 07/28/14 documented as of this encounter
[2025-10-29 15:55] LABS: Cholesterol 227 mg/dL (<200); HDL Cholesterol 45 mg/dL (>40); Triglycerides 132 mg/dL (<150)
[2025-10-29 16:58] LABS: Microalbum/Creatinine Ratio Ur 10.1 ug/mg cr (<30)
[2025-10-30 04:08] LABS: HIV Num 1 0.05 S/CO (0.00-0.99); ~HepC Num1 0.09 S/CO (0.00-0.79); ~Hepatitis C Antibody Nonreactive (Nonreactive)
== END 2025-10-29 08:38 | disposition home or self-care (01) ==
LOC: HO.CHCLDS 08:37
PROVIDERS: Visit Provider Internal Medicine
DX: Z11.59 Encounter for screening for other viral diseases (principal); Z11.4 Encounter for screening for human immunodeficiency virus [HIV]; E11.65 Type 2 diabetes mellitus with hyperglycemia; Z79.4 Long term (current) use of insulin
CPT/HCPCS: 36415; 80061; 82043; 82570; 86803; 87389